=== PATIENT | male | born 1955 | race Caucasian/White ===

== ENCOUNTER 2018-04-19 18:21 | Inpatient (IN) ==
[2018-04-19 19:43] LABS: Basophils % 0.2 %; Eosinophils % 0.2 %; Hematocrit 29.1 % (37.5-50.1); Hemoglobin 10.7 g/dL (12.9-16.9); Immature Granulocytes % 0.4 % (0-4); Lymphocytes # 1.2 K/mcL (0.6-4.6); Lymphocytes % 14.1 %; Mean Corpuscular HGB Conc 36.8 g/dL (31.6-35.5); Mean Corpuscular Hemoglobin 34.1 pg (28.0-33.3); Mean Corpuscular Volume 92.7 fL (83.0-100.0); Mean Platelet Volume 9.2 fL (9.4-12.4); Monocytes # 0.4 K/mcL (0.0-1.3); Monocytes % 4.6 %; Neutrophils # 6.8 K/mcL (1.6-8.9); Platelet Count 167 K/mcL (140-400); Red Blood Count 3.14 M/mcL (4.19-5.50); Red Cell Distribution Width 13.3 % (11.5-14.5); Segmented Neutrophils % 80.5 %
[2018-04-19 21:11] LABS: Chloride 79 mEq/L (98-107); Potassium 3.6 mEq/L (3.5-5.1); Thyroid Stimulating Hormone 1.217 mcIU/mL (0.340-5.600)
[2018-04-19 21:22] LABS: Sodium 117 mEq/L (136-145)
[2018-04-19 22:04] LABS: BUN/Creatinine Ratio 11 (6-26); Blood Urea Nitrogen 15 mg/dL (8-23); Calcium 8.4 mg/dL (8.6-10.3); Carbon Dioxide 31 mEq/L (23-29); Glucose 123 mg/dL (70-105); Osmolality,Calculated 246 (280-300); eGFR For Non-African Americans 52 (> 60)
--- NOTE | 2018-04-19 22:53 | Emergency Department Note ---
Disposition Clinical Impression: Hyponatremia, Near syncope Disposition: Admitted As Inpatient Condition: Fair Time of Disposition: 23:04 General Adult HPI - General Chief complaint: ED Fall Stated complaint: SYNCOPE Time Seen by Provider: 04/19/18 20:55 Source: patient, EMS Mode of arrival: EMS Limitations: no limitations Nursing Notes Reviewed: Yes Vital Signs Reviewed: Yes - History of Present Illness HPI Narrative: Patient is a 62-year-old male with past medical history of COPD, diabetes, HTN, HLD, and WA presenting to the emergency Department by squad for evaluation of syncope and weakness. Cor to the patient and he was dismissed from his primary care physician's office in July 2017 he states that since that time he has been becoming progressively weaker requiring a wheelchair as well as having intermittent episodes of syncope every couple of weeks. The patient states that this evening he was standing at the side of his bed and he states that he blacked out and fell to his bed but is able to catch himself and therefore he denies any other injury. Denies any focal neurological deficits. Denies history of cancer or alcohol use. Denies any fevers, chills, chest pain, shortness of breath, abdominal pain, nausea, vomiting or lower extremity swelling. Pain Scale: 5 - Related Data Home Medications Medication Instructions Recorded Confirmed Albuterol Sulfate [Proair Hfa] 2 puff IH Q4H PRN 04/19/18 04/19/18 Aspirin Enteric Coated [Aspirin EC] 81 mg PO DAILY 04/19/18 04/19/18 Atenolol/Chlorthalidone [Tenoretic 0.5 tab PO BID 04/19/18 04/19/18 100 Tablet] Cetirizine HCl [All Day Allergy] 10 mg PO DAILY 04/19/18 04/19/18 Citalopram Hydrobromide 40 mg PO DAILY 04/19/18 04/19/18 [Citalopram HBr] Clorazepate Dipotassium 15 mg PO DAILY 04/19/18 04/19/18 EPINEPHrine [Epipen] 0.3 mg IM ONCE PRN 04/19/18 04/19/18 Furosemide [Lasix] 20 mg PO BID 04/19/18 04/19/18 Insulin ASPART [NovoLOG] 0 unit SQ TIDWM 04/19/18 04/19/18 Insulin Glargine,Hum.rec.anlog 30 unit SQ DAILY 04/19/18 04/19/18 [Lantus Solostar] Isosorbide DInitrate [Isosorbide 20 mg PO TID 04/19/18 04/19/18 Dinitrate] Lisinopril [Zestril] 40 mg PO DAILY 04/19/18 04/19/18 Nitroglycerin [Nitrostat] 0.4 mg SL Q5MIN PRN 04/19/18 04/19/18 Potassium Chloride [K-Tab ER] 20 meq PO DAILY 04/19/18 04/19/18 Umeclidinium Brm/Vilanterol Tr 1 puff IH DAILY 04/19/18 04/19/18 [Anoro Ellipta 62.5-25 Mcg INH] traZODone [TraZODone] 50 mg PO HS 04/19/18 04/19/18 Allergies Allergy/AdvReac Type Severity Reaction Status Date / Time Penicillins [PCN] Allergy See Verified 04/19/18 18:24 Comments All systems ED: reviewed and negative except as stated. Review of Systems: As Per HPI Constitutional: Denies: fever, chills Cardiovascular: Denies: chest pain, palpitations, dyspnea on exertion Respiratory: Denies: cough, dyspnea Gastrointestinal: Denies: abdominal pain, nausea, vomiting Genitourinary: Denies: urgency, dysuria, frequency Musculoskeletal: Denies: back pain, neck pain Integumentary: Denies: rash Neurological: Reports: other (Syncope). Denies: headache, weakness, numbness, paresthesias, confusion, abnormal gait Past Medical History - Past Medical History Attestation: Yes The following information was validated with the patient. Medical history: Reports: COPD, diabetes, hyperlipidemia, hypertension, myocardial infarction, other Psychiatric history: Reports: anxiety, depression - Social History Smoking Status: Current every day smoker Smokeless Tobacco Status: No Alcohol use: Reports: rarely Drug use: Reports: none Physical Exam CONSTITUTIONAL: Well-appearing; well-nourished; A&O X 3, in no apparent distress. Vitals within normal limits. HEAD: Normocephalic; atraumatic EYES: PERRL, no scleral icterus NOSE: The nose is normal in appearance without rhinorrhea NECK: No JVD or distended neck veins RESP: Normal chest excursion with respiration; breath sounds clear and equal bilaterally; no wheezes, rhonchi, or rales CARD: Regular rhythm, without murmurs, rub or gallop ABD: Non-distended; non-tender, soft, without rigidity, rebound or guarding,no pulsatile mass CHEST: No pain with palpation SKIN: Normal for age and race; warm and dry without diaphoresis ; no apparent lesions EXTREMITIES: Pulses are 2 plus and equal times 4 extremities, mild bilateral pitting edema. NEUROLOGICAL: Patient is alert and oriented times three. Cranial nerves III- XII are intact. Sensory and motor functions are intact. Strength is 5/5 for flexion and extension in all 4 extremities. Patellar DTRS are equal and intact. Finger to nose testing is equal and normal bilaterally. - General Limitations: no limitations General appearance: alert Course Course Narrative: Plan at this times to evaluate the patient for generalized weakness and syncopal events. Patient undergo evaluation of his electrolytes, EKG, troponin , TSH to evaluate for etiologies of the patient's syncope. At this time patient 's vital signs are stable. - Reevaluation(s) Reevaluation #1: Patient was found to be hyponatremic with a sodium of 117. Discussed this patient's findings with the hospitalist, Dr. Haley D he requested that I consult with nephrology for further management however he will accept the patient to the hospital. I discussed the patient's case with Dr. Hines, and she does not recommend hypertonic saline at this time given that the patient is currently asymptomatic. She recommended admission to the hospital in stopping the patient's chlorthalidone, thiazide and lisinopril. She recommended adding on urine labs which include a urine sodium and urinalysis osmolality. She recommended 1 g of sodium chloride twice a day to start this evening. She also recommended a regular diet with salt packets. I discussed this information with the hospitalist on-call, Dr. Zee and he agrees with plan. Time: 22:55 Vital Signs Temperature 98 F 04/19/18 18:25 Pulse Rate 65 04/19/18 18:25 Respiratory Rate 22 04/19/18 18:25 Blood Pressure 151/138 04/19/18 18:25 O2 Sat by Pulse Oximetry 93 04/19/18 18:25 Temperature 98 F 04/19/18 18:25 Pulse Rate 55 04/19/18 23:00 Respiratory Rate 16 04/19/18 23:00 Blood Pressure 153/73 04/19/18 23:00 O2 Sat by Pulse Oximetry 100 04/19/18 23:00 Oxygen Delivery Oxygen Delivery Nasal Cannula Medical Decision Making - Medical Records Medical records reviewed: Yes I reviewed the patient's medical records. - Lab Data Lab results reviewed: Yes I reviewed the patient's lab results. Result diagrams: 04/19/18 19:23 04/19/18 19:23 Lab Results 04/19/18 04/19/18 Range/Units 19:23 19:23 WBC 8.5 (4.3-11.1) K/mcL RBC 3.14 L (4.19-5.50) M/mcL Hgb 10.7 L (12.9-16.9) g/dL Hct 29.1 L (37.5-50.1) % MCV 92.7 (83.0-100.0) fL MCH 34.1 H (28.0-33.3) pg MCHC 36.8 H (31.6-35.5) g/dL RDW 13.3 (11.5-14.5) % Plt Count 167 (140-400) K/mcL MPV 9.2 L (9.4-12.4) fL Immature Gran % 0.4 (0-4) % Seg Neutrophils % 80.5 % Lymphocytes % 14.1 % Monocytes % 4.6 % Eosinophils % 0.2 % Basophils % 0.2 % Neutrophils # 6.8 (1.6-8.9) K/mcL Lymphocytes # 1.2 (0.6-4.6) K/mcL Monocytes # 0.4 (0.0-1.3) K/mcL Eosinophils # 0.0 (0.0-0.6) K/mcL Basophils # 0.0 (0.0-0.2) K/mcL Sodium 117 L* (136-145) mEq/L Potassium 3.6 (3.5-5.1) mEq/L Chloride 79 L (98-107) mEq/L Carbon Dioxide 31 H (23-29) mEq/L BUN 15 (8-23) mg/dL Creatinine 1.39 H (0.70-1.30) mg/dL Est GFR ( Amer) > 60 (> 60) Est GFR (Non-Af Amer) 52 L (> 60) BUN/Creatinine Ratio 11 (6-26) Glucose 123 H (70-105) mg/dL Calculated Osmolality 246 L (280-300) Calcium 8.4 L (8.6-10.3) mg/dL TSH 1.217 (0.340-5.600) mcIU/mL - EKG Data EKG #1 EKG attestation: Yes I reviewed and interpreted this EKG. EKG results narrative: EKG done at 18:35 shows sinus rhythm at a rate of 66 bpm. Normal axis. Intervals within normal limits no signs of ST elevation, ST depression or Q waves present. Patient does have 2 PVCs.
[2018-04-19 23:47] LABS: Bilirubin,Urine Negative (Negative); Blood,Urine Negative (Negative); Clarity,Urine Clear (Clear); Color,Urine Yellow (Yellow); Glucose,Urine (UA) Normal (Normal); Ketones,Urine Negative (Negative); Leukocyte Esterase,Urine Negative (Negative); Nitrite,Urine Negative (Negative); PH,Urine 7.5 pH Units (5.0-8.0); Protein,Urine Negative (Neg-Trace); Specific Gravity,Urine 1.007 (1.010-1.025); Urobilinogen,Urine Normal (Normal)
[2018-04-20] MEDS ORDERED: Naloxone 0.4 MG/ML INJ IVP PRN ×2 (01:03→05:54)
[2018-04-20] MEDS ORDERED: Dextrose Gel 15 GM/37.5 ML TUBE PO PRN ×2 (01:12)
[2018-04-20] MEDS ORDERED: D5% in Water 1,000 ML IVC PRN (01:12)
[2018-04-20] MEDS ORDERED: *HR* Dextrose 50 % in Water (Syg) 50 ML SYRINGE IVP PRN (01:12)
[2018-04-20] MEDS ORDERED: Nitroglycerin 0.4 MG TAB.SUBL SL PRN (01:19)
[2018-04-20] MEDS ORDERED: *HR* EPINEPHrine 0.3 MG/0.3 ML (PEN) IM PRN (01:19)
--- NOTE | 2018-04-20 01:19 | Internal Med History&Physical ---
<Melody Gutierrez M - Last Filed: 04/20/18 03:20> Date of Encounter: 04/20/18 Time of Encounter: 01:17 Internal Medicine - H&P: HPI Chief complaint: syncope Admitted From: Home Plans for Post Hospital Care: Home History of present illness: Mr. Toure is a 62 year old male hx COPD and HTN presented to ED by EMS for syncope. In Er BP 151/138 and RR 22 with 93% on RA - started on 2L NC. He has found to have sodium of 117 and given salt tablet which he vomited - only one episode. He reports near syncope with sitting and bending over- he became dizzy and began to fall but caught himself. He did not hit his head, No LOC, no other injuries. He has daily syncope or near syncope for about three months - triggered by neck extension. He "blacks out" for unknown spaces of time but denies urinary incontinence or tongue bitting - history of seizure seven years ago due to anxiety. Worse episode was one month ago when he hit his head and bruised his face. Chronic bilateral headache crushing pain with nausea and photophobia unchanged by Tylenol, NSAIDs or caffeine. One month of decreased appetite and increase confusion and memory loss. Fatigue and generalized weakness since September- started using wheel chair instead of cane in past month. Unintentional weight loss of 50 lbs in one year and 4 lbs in last month. He hasn't taken Lasix but has been compliant with lisinopril and taking half tablet of combo pill. PMhx includes chronic pain, COPD at baseline cough and shortness of breath, hx of NC - patient states last LHC 7 years ago and echo 4 months ago but 8-29-147 EF 60-65 % no abnormality. Denies any family history of NC or kidney disease. greater than 70 pkyr currently few cigarettes a day. He drinks one beer per week and denies illicit substances. Past Med Surg Social Fam HX - Past Medical History Medical history: COPD, CVA, diabetes, hyperlipidemia, hypertension, myocardial infarction, other Additional medical history: sleep apnea Psychiatric history: anxiety, depression - Social History Smoking Status: Current every day smoker Packs per day: 0.5 Smokeless Tobacco Status: No Alcohol use: rarely Drug use: none Internal Medicine - H&P: Meds Albuterol Sulfate [Proair Hfa] 2 puff IH Q4H PRN 04/19/18 [History] Aspirin Enteric Coated [Aspirin EC] 81 mg PO DAILY 04/19/18 [History] Atenolol/Chlorthalidone [Tenoretic 100 Tablet] 0.5 tab PO HS 04/19/18 [History] Cetirizine HCl [All Day Allergy] 10 mg PO DAILY 04/19/18 [History] Citalopram Hydrobromide [Citalopram HBr] 20 mg PO DAILY 04/19/18 [History] Clorazepate Dipotassium 15 mg PO DAILY 04/19/18 [History] EPINEPHrine [Epipen] 0.3 mg IM ONCE PRN 04/19/18 [History] Insulin ASPART [NovoLOG] 0 unit SQ TIDWM 04/19/18 [History] Insulin Glargine,Hum.rec.anlog [Lantus Solostar] 10 unit SQ HS 04/19/18 [History ] Isosorbide DInitrate [Isosorbide Dinitrate] 20 mg PO HS 04/19/18 [History] Lisinopril [Zestril] 40 mg PO DAILY 04/19/18 [History] Nitroglycerin [Nitrostat] 0.4 mg SL Q5MIN PRN 04/19/18 [History] traZODone [TraZODone] 50 mg PO HS 04/19/18 [History] 3 Allergy/AdvReac Type Severity Reaction Status Date / Time Penicillins [PCN] Allergy See Verified 04/19/18 18:24 Comments All Systems PM: A 10-system review of systems was performed and is negative for pertinent findings except as documented above in the HPI. - Constitutional Constitutional: fatigue, weight loss - EENT Eyes: blurry vision, change in vision, loss of vision Nose, mouth and throat: no facial pain - Cardiovascular Cardiovascular ROS IM: dyspnea, syncope, no chest pain, no palpitations - Respiratory Respiratory: no cough, no wheezing, no excessive phlegm production - Gastrointestinal Gastrointestinal: no constipation, no cramping, no diarrhea, no vomiting - Genitourinary Genitourinary ROS male: no dysuria, no urinary frequency, no urinary incontinence - Musculoskeletal Musculoskeletal ROS IM: arthralgias, back pain, myalgias, neck pain - Neurological Neurological ROS: confusion, frequent falls, headache(s), vertigo, weakness, no convulsions, no focal weakness - Constitutional Vitals: Temp Pulse Resp BP Pulse Ox 97.8 F 65 18 115/49 97 04/19/18 23:53 04/19/18 23:53 04/19/18 23:53 04/19/18 23:53 04/19/18 23:53 Exam: morbidly obese Internal Med - H&P Results - Labs CBC & Chem 7: 04/20/18 01:44 04/20/18 01:44 Labs: Urine 04/19/18 Range/Units 23:20 Urine Color Yellow (Yellow) Urine Clarity Clear (Clear) Urine pH 7.5 (5.0-8.0) pH Units Ur Specific [place] 1.007 L (1.010-1.025) Urine Protein Negative (Neg-Trace) mg/dL Urine Glucose (UA) Normal (Normal) mg/dL - Assessment and plan (1) Hyponatremia Current Visit: Yes Status: Acute Assessment and plan: Na 117 with baseline chronic hyponatremia 130s - urine Osm 116 - monitor with serial BMPs - salt tablets BID - repeat dose given in ER since lost to vomit - diabetic diet with salt added - consult nephrology - 24hr urine sodium (2) Near syncope Current Visit: Yes Status: Acute Assessment and plan: chronic problem possibly due in part to hyponatremia - consider cardiac cause with significant risk factors - EKG wnl - consider Head CT due to history of syncope trigger by neck extension - orthostatic vitals - continue tele and pulse ox (3) Diabetes Current Visit: Yes Status: Acute Assessment and plan: Continue home basal 10 units with sliding scale Qualifiers: Diabetes mellitus type: type 2 Diabetes mellitus termite treater helper insulin use: with termite treater helper use Diabetes mellitus complication detail: with polyneuropathy Qualified Code(s): E11.42 - Type 2 diabetes mellitus with diabetic polyneuropathy; Z79.4 - watermaster (current) use of insulin (4) Hypertension Current Visit: Yes Status: Acute Assessment and plan: hold atenolol - chlorthalidone combo, lisinopril - hold trazadone, citalopram - monitor BP - considered adding beta lindsay or hydralazine as not salt wasting Qualifiers: Qualified Code(s): I10 - Essential (primary) hypertension (5) Insomnia Current Visit: Yes Status: Acute Assessment and plan: history of chronic benzo use - continue clorazpate Qualifiers: Insomnia type: unspecified Qualified Code(s): G47.00 - Insomnia, unspecified (6) COPD (chronic obstructive pulmonary disease) Current Visit: Yes Status: Acute Assessment and plan: patient refused to use controlled inhaler - continue albuterol inhaler - start duenebs PRN Qualifiers: Emphysema type: unspecified Qualified Code(s): J43.9 - Emphysema, unspecified (7) DVT prophylaxis Current Visit: Yes Status: Acute Assessment and plan: heparin SQ - Time Spent With Patient Total time spent is greater than 50% in coordination of care (as documented) at patient's floor/unit and/or counseling patient: <Cathy Pollard A - Last Filed: 04/20/18 06:50> Date of Encounter: 04/20/18 Internal Medicine - H&P: HPI History of present illness: Mr. Toure is a 62 year old male All Systems PM: A 10-system review of systems was performed and is negative for pertinent findings except as documented above in the HPI. - Constitutional Vitals: Temp Pulse Resp BP Pulse Ox 98.7 F 56 20 128/59 100 04/20/18 03:14 04/20/18 03:14 04/20/18 03:14 04/20/18 03:14 04/20/18 03:14 Internal Med - H&P Results - Labs CBC & Chem 7: 04/20/18 01:44 04/20/18 05:35 - Time Spent With Patient Total time spent is greater than 50% in coordination of care (as documented) at patient's floor/unit and/or counseling patient: - Attending Attestation Patient seen and examined. Chart reviewed. Case discussed with resident. Agree with assessment and plan. Strong suspicion for severe symptomatic hyponatremia Nephrology is aware the patient and at this time is recommending to hold fluids; continue with one gram sodium tablets twice a day and regular diet. Nephrology was the patient in the morning. More than 30 minutes spent discussing and seeing patient
[2018-04-20] MEDS ORDERED: Ipratropium/Albuterol Neb 3 ML IH PRN (01:31)
[2018-04-20 02:13] LABS: Basophils % 0.3 %; Eosinophils % 0.6 %; Hematocrit 30.1 % (37.5-50.1); Immature Granulocytes % 0.5 % (0-4); Lymphocytes # 1.2 K/mcL (0.6-4.6); Lymphocytes % 18.5 %; Mean Corpuscular HGB Conc 36.5 g/dL (31.6-35.5); Mean Corpuscular Hemoglobin 34.2 pg (28.0-33.3); Mean Corpuscular Volume 93.5 fL (83.0-100.0); Mean Platelet Volume 9.4 fL (9.4-12.4); Monocytes # 0.3 K/mcL (0.0-1.3); Monocytes % 4.5 %; Neutrophils # 4.9 K/mcL (1.6-8.9); Platelet Count 169 K/mcL (140-400); Red Blood Count 3.22 M/mcL (4.19-5.50); Red Cell Distribution Width 13.3 % (11.5-14.5); Segmented Neutrophils % 75.6 %
[2018-04-20 02:32] LABS: BUN/Creatinine Ratio 11 (6-26); Blood Urea Nitrogen 14 mg/dL (8-23); Calcium 8.6 mg/dL (8.6-10.3); Carbon Dioxide 35 mEq/L (23-29); Chloride 80 mEq/L (98-107); Glucose 128 mg/dL (70-105); Osmolality,Calculated 252 (280-300); Potassium 3.3 mEq/L (3.5-5.1); Sodium 120 mEq/L (136-145); eGFR For Non-African Americans 56 (> 60)
[2018-04-20] MEDS: Insulin DETEMIR 100 UNIT/ML X5UNITS SQ SCH ×2 (03:04→21:30)
[2018-04-20] MEDS: *HR* Heparin 5,000 UNIT/ML VIAL SQ SCH ×3 (05:26→21:30)
[2018-04-20 06:31] LABS: BUN/Creatinine Ratio 10 (6-26); Blood Urea Nitrogen 12 mg/dL (8-23); Calcium 8.7 mg/dL (8.6-10.3); Carbon Dioxide 35 mEq/L (23-29); Chloride 82 mEq/L (98-107); Glucose 122 mg/dL (70-105); Osmolality,Calculated 255 (280-300); Potassium 3.5 mEq/L (3.5-5.1); Sodium 122 mEq/L (136-145); eGFR For Non-African Americans > 60 (> 60)
[2018-04-20] MEDS: Aspirin Enteric Coated 81 MG Tablet PO SCH (08:28)
[2018-04-20] MEDS: Insulin LISPRO 300 UNITS/3 ML VIAL SQ SCH ×3 (08:28→17:25)
--- NOTE | 2018-04-20 09:35 | Internal Med Progress Note ---
<Perez Burnett - Last Filed: 04/20/18 09:35> Hospitalist Progress Note - Encounter Date of Encounter: 04/20/18 - Exam Vitals: Temp Pulse Resp BP Pulse Ox 98.5 F 63 18 121/45 100 04/20/18 08:00 04/20/18 08:00 04/20/18 08:00 04/20/18 08:00 04/20/18 08:00 - Time Spent with Patient Total time spent is greater than 50% in coordination of care (as documented) at patient's floor/unit and/or counseling patient: Internal Medicine: Result - Labs CBC & Chem 7: 04/20/18 01:44 04/20/18 05:35 Consult Discharge Plan - Plan Referrals: Sandra Ledesma, [facility] TECHNICIAN [Advanced Practice Nurse] - 04/26/18 3:00 pm <Barrie Ragland - Last Filed: 04/20/18 14:36> Hospitalist Progress Note - Encounter Date of Encounter: 04/20/18 Time of Encounter: 14:35 - Exam Vitals: Temp Pulse Resp BP Pulse Ox 98.3 F 62 18 119/65 97 04/20/18 11:18 04/20/18 11:18 04/20/18 11:18 04/20/18 13:37 04/20/18 11:18 Exam: . - Summary of Assessment and Plan Summary of Assessment and Plan: Patient hospitalized with hyponatremia. Most likely hypovolemic hyponatremia. Also reports continued dizziness and lightheadedness. We will check orthostatics. Follow nephrology recommendations. Does have low urine osmolality. We will start patient on normal saline. Continue to monitor sodium levels closely. - Time Spent with Patient Total time spent is greater than 50% in coordination of care (as documented) at patient's floor/unit and/or counseling patient: Internal Medicine: Result - Labs CBC & Chem 7: 04/20/18 01:44 04/20/18 13:13 Labs: BMP 04/20/18 04/20/18 09:30 13:13 Sodium 123 L 122 L Potassium 3.5 Chloride 81 L Carbon Dioxide 35 H BUN 12 Creatinine 1.24 Glucose 167 H Calcium 8.9
[2018-04-20 10:25] LABS: BUN/Creatinine Ratio 10 (6-26); Blood Urea Nitrogen 12 mg/dL (8-23); Calcium 8.9 mg/dL (8.6-10.3); Carbon Dioxide 35 mEq/L (23-29); Chloride 81 mEq/L (98-107); Glucose 167 mg/dL (70-105); Osmolality,Calculated 260 (280-300); Potassium 3.5 mEq/L (3.5-5.1); Sodium 123 mEq/L (136-145); eGFR For Non-African Americans 59 (> 60)
[2018-04-20] MEDS: 0.9 % Sodium Chloride 1,000 ML IVC SCH (13:46)
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
[2018-04-20] MEDS: Temazepam 15 MG CAPSULE PO PRN (21:30)
[2018-04-21] MEDS: 0.9 % Sodium Chloride 1,000 ML IVC SCH ×3 (00:17→20:27)
[2018-04-21 04:11] LABS: Basophils % 0.2 %; Eosinophils % 0.5 %; Hematocrit 28.8 % (37.5-50.1); Hemoglobin 10.1 g/dL (12.9-16.9); Immature Granulocytes % 0.4 % (0-4); Lymphocytes # 1.6 K/mcL (0.6-4.6); Lymphocytes % 19.5 %; Mean Corpuscular HGB Conc 35.1 g/dL (31.6-35.5); Mean Corpuscular Hemoglobin 33.1 pg (28.0-33.3); Mean Corpuscular Volume 94.4 fL (83.0-100.0); Mean Platelet Volume 9.4 fL (9.4-12.4); Monocytes # 0.4 K/mcL (0.0-1.3); Monocytes % 4.5 %; Platelet Count 197 K/mcL (140-400); Red Blood Count 3.05 M/mcL (4.19-5.50); Red Cell Distribution Width 13.7 % (11.5-14.5); Segmented Neutrophils % 74.9 %
[2018-04-21 04:30] LABS: BUN/Creatinine Ratio 9 (6-26); Blood Urea Nitrogen 9 mg/dL (8-23); Calcium 8.8 mg/dL (8.6-10.3); Carbon Dioxide 32 mEq/L (23-29); Chloride 88 mEq/L (98-107); Glucose 102 mg/dL (70-105); Osmolality,Calculated 261 (280-300); Potassium 3.8 mEq/L (3.5-5.1); Sodium 126 mEq/L (136-145); eGFR For Non-African Americans > 60 (> 60)
[2018-04-21] MEDS: *HR* Heparin 5,000 UNIT/ML VIAL SQ SCH ×3 (06:49→20:27)
[2018-04-21] MEDS: Aspirin Enteric Coated 81 MG Tablet PO SCH (07:34)
[2018-04-21] MEDS: Insulin LISPRO 300 UNITS/3 ML VIAL SQ SCH ×3 (07:36→17:02)
--- NOTE | 2018-04-21 08:53 | Internal Med Progress Note ---
Hospitalist Progress Note - Encounter Date of Encounter: 04/21/18 Time of Encounter: 08:50 - Subjective Interval History: Patient seen and evaluated at bedside. Denies lightheadedness, near syncope, dizziness, blurry vision. But he reports that for the past 2 months he has been having's near syncope spells which he describes as the room is spinning around after which he has passed out. 62-year-old male with a past medical history significant for COPD on 2 L of home oxygen, hypertension, depression, coronary artery disease with a previous NH, CVA, and diabetes. Patient admitted to the hospital following a near syncopal episode. Found to be hyponatremic. - Exam Vitals: Temp Pulse Resp BP Pulse Ox 98.5 F 70 18 125/60 99 04/21/18 06:48 04/21/18 06:48 04/21/18 06:48 04/21/18 06:48 04/21/18 06:48 Exam: General: Alert and oriented 3. Not in acute distress. Cardiovascular: Normal S1 & S2, no rubs, murmurs or gallops. JVD unable to assess due to short neck. Lungs: Clear to auscultation bilaterally, no wheezes or crackles. Abdomen: Obese, Soft, non-tender, no rigidity. NABS 4 quadrants. Extremities: No deformity, no edema or tenderness, strength is 5 out of 5 upper and lower extremities. Neurological: CN II-XII intact. Rest of the physical exam is non contributory - Assessment and Plan (1) Hyponatremia Current Visit: Yes Status: Acute Assessment and Plan: Unclear etiology. Plan: - Continue NS@100mls/hr - Cortisol level in the morning - Water restricting to 1.5 litters a day - Will continue to follow nephrology recommendations (2) Chronic hypoxemic respiratory failure Current Visit: Yes Status: Acute Assessment and Plan: On 2 L home oxygen. Plan: - Titrate for O2Sat >92% - Continue oxygen at 2 L by nasal cannula (3) COPD (chronic obstructive pulmonary disease) Current Visit: Yes Status: Acute Assessment and Plan: No signs of acute exacerbation. Chest clear to auscultation. Plan - On nebs when necessary (4) Diabetes Current Visit: Yes Status: Acute Assessment and Plan: Blood sugar well controlled Plan: - Continue levemir and Lispro at current dose. - Diabetic diet (5) Hypertension Current Visit: Yes Status: Acute Assessment and Plan: Blood pressure well controlled> Plan: - Continue lisinopril and isosorbide - Hold chlorthalidone. - We will restart atenolol at low dose (6) Near syncope Current Visit: Yes Status: Acute Assessment and Plan: As per patient for the past 2 months he has been having near syncope episode. Which he described as the room spinning around then following of blackouts episode. Possible BPV? Plan: - Head CT done with no intracranial abnormality. - Patient informed that he would benefit from an outpatient neurology evaluation. (7) Depression Current Visit: Yes Status: Acute Assessment and Plan: Patient on SSRI. Plan: - We will hold medication for now, as this could be a contributing factor for his hyponatremia. (8) Anxiety Current Visit: Yes Status: Acute Assessment and Plan: Patient on Clorazepate ane trenazepam (9) DVT prophylaxis Current Visit: Yes Status: Acute Assessment and Plan: Continue chemical DVT prophylaxis with heparin 5000 units subcutaneous BID - Time Spent with Patient Total time spent is greater than 50% in coordination of care (as documented) at patient's floor/unit and/or counseling patient: Greater than 35 minutes Plan of Care Discussed with: patient Internal Medicine: Result - Labs CBC & Chem 7: 04/21/18 03:35 04/21/18 03:35 Labs: Short CBC 04/21/18 Range/Units 03:35 WBC 8.0 (4.3-11.1) K/mcL Hgb 10.1 L (12.9-16.9) g/dL Hct 28.8 L (37.5-50.1) % Plt Count 197 (140-400) K/mcL Neutrophils # 6.0 (1.6-8.9) K/mcL BMP 04/20/18 04/20/18 04/20/18 09:30 13:13 18:40 Sodium 123 L 122 L 125 L Potassium 3.5 Chloride 81 L Carbon Dioxide 35 H BUN 12 Creatinine 1.24 Glucose 167 H Calcium 8.9 04/20/18 04/21/18 23:10 03:35 Sodium 125 L 126 L Potassium 3.8 Chloride 88 L Carbon Dioxide 32 H BUN 9 Creatinine 0.95 Glucose 102 Calcium 8.8 - Impressions Impressions Head CT 09/05/18 16:03 IMPRESSION: No acute intracranial abnormality. D/ / Shin Rogel MD / Shin Rogel MD Interpreting Provider: Shin Rogel MD Consult Discharge Plan - Plan Referrals: Sandra Ledesma PUBLIC SPACE ATTENDANT [Advanced Practice Nurse] - 04/26/18 3:00 pm (3) COPD (chronic obstructive pulmonary disease) Qualifiers: Emphysema type: unspecified Qualified Code(s): J43.9 - Emphysema, unspecified (4) Diabetes Qualifiers: Diabetes mellitus type: type 2 Diabetes mellitus retirement insulin use: with retirement use Diabetes mellitus complication detail: with polyneuropathy Qualified Code(s): E11.42 - Type 2 diabetes mellitus with diabetic polyneuropathy; Z79.4 - terminal operations supervisor (current) use of insulin (5) Hypertension Qualifiers: Qualified Code(s): I10 - Essential (primary) hypertension (7) Depression Qualifiers: Depression Type: unspecified Qualified Code(s): F32.9 - Major depressive disorder, single episode, unspecified
--- NOTE | 2018-04-21 11:37 | Nephrology Progress Note ---
Date of Encounter: 04/21/18 Time of Encounter: 11:34 - Assessment and Plan (1) Hyponatremia Current Visit: Yes Status: Acute Initial NA was 117,is now 126. Continue IVF. Continue diabetic diet with salt packets. (2) COPD (chronic obstructive pulmonary disease) Current Visit: Yes Status: Acute Per primary. Qualifiers: Emphysema type: unspecified Qualified Code(s): J43.9 - Emphysema, unspecified (3) Near syncope Current Visit: Yes Status: Acute Appears to be resolving. Per primary. Subjective Principal diagnosis: s/p fall, syncopal episode Interval history: Pt seen and examined, doing well. Denies any dizziness when standing this am. States he is feeling better. Objective - Vital Signs Vital signs: Vital Signs Temp Pulse Resp BP BP BP BP 04/21/18 11:18 98.8 F 61 18 123/78 04/21/18 07:35 98.5 F 70 18 125/60 04/21/18 06:48 98.5 F 70 18 125/60 04/21/18 04:14 98.5 F 67 18 110/59 04/20/18 23:57 97.6 F 66 18 113/53 04/20/18 19:53 98.1 F 65 17 130/62 04/20/18 15:40 98.2 F 61 18 121/99 04/20/18 13:37 119/65 96/81 85/47 04/20/18 13:35 119/65 04/20/18 13:34 119/65 04/20/18 13:29 119/65 Pulse Ox 04/21/18 11:18 100 04/21/18 07:35 99 04/21/18 06:48 99 04/21/18 04:14 98 04/20/18 23:57 99 04/20/18 19:53 95 04/20/18 15:40 100 04/20/18 13:37 04/20/18 13:35 04/20/18 13:34 04/20/18 13:29 Intake and Output 04/20/18 04/21/18 04/21/18 23:59 07:59 15:59 Intake Total 1120 / 1120 0 / 0 1000 / 1000 Output Total 400 / 400 350 / 350 900 / 900 Balance 720 / 720 -350 / -350 100 / 100 Intake: IV Fluids 1000 / 1000 1000 / 1000 0.9 % Sodium Chloride 1,000 ML 1000 / 1000 1000 / 1000 @ 100 mls/hr IVC .Q10H INO Rx#: [id number] Oral 120 / 120 0 / 0 Output: Urine 400 / 400 350 / 350 900 / 900 Other: Meal Dinner Breakfast Percent of Meal Consumed 80% 0% Weight 139.5 kg Blood Glucose* 145 113 99 Patient Weight 04/21/18 23:59 Weight 139.5 kg - General Appearance General appearance: Present: well-developed, well-nourished EENT: Present: ATNC, hearing intact, vision intact Neck: Present: supple Respiratory: Present: clear Cardiology: Present: no edema, normal S1, normal S2 Gastrointestinal: Present: normoactive bowel sounds, no tenderness, no guarding Integumentary: Present: no rash, warm and dry Psychiatric: Present: mood/affect appropriate, cooperative - Lab 04/21/18 03:35 04/21/18 03:35 Most recent lab results Calcium 8.8 mg/dL (8.6-10.3) 04/21/18 03:35 Urine Sodium 41.1 mEq/L 04/20/18 15:40 Consult Discharge Plan - Plan Referrals: Sandra Ledesma, ENTRY LEVEL ACCOUNT MANAGER [Advanced Practice Nurse] - 04/26/18 3:00 pm
[2018-04-21 15:03] LABS: Total Volume 24 Hour,Urine 3.21 Liters (0.80-1.80)
[2018-04-21 15:20] LABS: Sodium, Urine 49.2 mEq/L
[2018-04-21] MEDS: Insulin DETEMIR 100 UNIT/ML X5UNITS SQ SCH (20:27)
[2018-04-21] MEDS: Temazepam 15 MG CAPSULE PO PRN (21:39)
[2018-04-22 05:21] LABS: Basophils % 0.2 %; Eosinophils % 0.7 %; Hematocrit 26.8 % (37.5-50.1); Hemoglobin 9.3 g/dL (12.9-16.9); Immature Granulocytes % 0.3 % (0-4); Lymphocytes # 1.1 K/mcL (0.6-4.6); Lymphocytes % 18.4 %; Mean Corpuscular HGB Conc 34.7 g/dL (31.6-35.5); Mean Corpuscular Hemoglobin 33.9 pg (28.0-33.3); Mean Corpuscular Volume 97.8 fL (83.0-100.0); Mean Platelet Volume 9.4 fL (9.4-12.4); Monocytes # 0.3 K/mcL (0.0-1.3); Monocytes % 5.1 %; Neutrophils # 4.4 K/mcL (1.6-8.9); Platelet Count 183 K/mcL (140-400); Red Blood Count 2.74 M/mcL (4.19-5.50); Red Cell Distribution Width 13.8 % (11.5-14.5); Segmented Neutrophils % 75.3 %
[2018-04-22 05:48] LABS: BUN/Creatinine Ratio 7 (6-26); Blood Urea Nitrogen 6 mg/dL (8-23); Calcium 8.1 mg/dL (8.6-10.3); Carbon Dioxide 28 mEq/L (23-29); Chloride 95 mEq/L (98-107); Glucose 97 mg/dL (70-105); Magnesium 1.4 mg/dL (1.6-2.6); Osmolality,Calculated 268 (280-300); Potassium 3.5 mEq/L (3.5-5.1); Sodium 130 mEq/L (136-145); eGFR For Non-African Americans > 60 (> 60)
[2018-04-22] MEDS: *HR* Heparin 5,000 UNIT/ML VIAL SQ SCH (06:25)
[2018-04-22] MEDS: 0.9 % Sodium Chloride 1,000 ML IVC SCH (06:26)
[2018-04-22 07:16] VITALS: BP 104/57
[2018-04-22] MEDS: Aspirin Enteric Coated 81 MG Tablet PO SCH (07:30)
[2018-04-22] MEDS: Insulin LISPRO 300 UNITS/3 ML VIAL SQ SCH (07:31)
[2018-04-22] MEDS ORDERED: Magnesium Oxide 400 MG TABLET PO ONE (09:02)
--- NOTE | 2018-04-22 09:22 | Discharge Summary ---
- NOTES TO OUTPATIENT PROVIDER Notes to Outpatient Provider: BMP within a week. Discuss with your primary care about the possible neurology evaluation as an outpatient due to the vertigo. Date of Encounter: 04/22/18 Time of Encounter: 09:19 - Discharge Diagnosis (1) Hyponatremia Priority: Primary Status: Resolved (2) Chronic hypoxemic respiratory failure Priority: Secondary Status: Chronic (3) COPD (chronic obstructive pulmonary disease) Priority: Secondary Status: Chronic Qualifiers: Emphysema type: unspecified Qualified Code(s): J43.9 - Emphysema, unspecified (4) Diabetes Priority: Secondary Status: Chronic Qualifiers: Diabetes mellitus type: type 2 Diabetes mellitus senior care insulin use: with senior care use Diabetes mellitus complication detail: with polyneuropathy Qualified Code(s): E11.42 - Type 2 diabetes mellitus with diabetic polyneuropathy; Z79.4 - skilled nursing (current) use of insulin (5) Hypertension Priority: Secondary Status: Chronic Qualifiers: Qualified Code(s): I10 - Essential (primary) hypertension (6) Near syncope Priority: Secondary Status: Suspected (7) Depression Priority: Secondary Status: Chronic Qualifiers: Depression Type: unspecified Qualified Code(s): F32.9 - Major depressive disorder, single episode, unspecified (8) Anxiety Priority: Secondary Status: Chronic (9) DVT prophylaxis Priority: Secondary Status: Acute (10) Anemia Priority: Secondary Status: Chronic Qualifiers: Anemia type: unspecified type Qualified Code(s): D64.9 - Anemia, unspecified Hospital course: Mr. Toure is a 62 year old male past medical history of COPD on 2 L of home oxygen, hypertension. And diabetes. Patient presented to the emergency room following a near syncopal episode. Patient found to be hypoglycemic with a sodium of 117. A CT of the head done, did not reveal any acute intracranial abnormality. The hyponatremia was treated with salt tablet, water restriction and normal saline. Sodium level at discharge 130, patient with no neurological abnormality. Denies dizziness, lightheadedness. Or near-syncope episode. Patient was evaluated by physical therapy, and recommended to go to subacute rehabilitation, but patient refused going to a subacute rehabilitation facility. Patient is hemodynamically is stable, to be discharged home. Recommended to follow-up with his primary care doctor within a week. Discharge discussed with: patient, family, nurse - Time Spent with Patient Total time spent providing and/or coordinating discharge services: Greater than 30 minutes - Discharge Medications Home Medications: Albuterol Sulfate [Proair Hfa] 2 puff IH Q4H PRN 04/19/18 [History] Aspirin Enteric Coated [Aspirin EC] 81 mg PO DAILY 04/19/18 [History] Atenolol/Chlorthalidone [Tenoretic 100 Tablet] 0.5 tab PO HS 04/19/18 [History] Cetirizine HCl [All Day Allergy] 10 mg PO DAILY 04/19/18 [History] Citalopram Hydrobromide [Citalopram HBr] 20 mg PO DAILY 04/19/18 [History] Clorazepate Dipotassium 15 mg PO DAILY 04/19/18 [History] EPINEPHrine [Epipen] 0.3 mg IM ONCE PRN 04/19/18 [History] Insulin ASPART [NovoLOG] 0 unit SQ TIDWM 04/19/18 [History] Insulin Glargine,Hum.rec.anlog [Lantus Solostar] 10 unit SQ HS 04/19/18 [History ] Isosorbide DInitrate [Isosorbide Dinitrate] 20 mg PO HS 04/19/18 [History] Lisinopril [Zestril] 40 mg PO DAILY 04/19/18 [History] Nitroglycerin [Nitrostat] 0.4 mg SL Q5MIN PRN 04/19/18 [History] traZODone [TraZODone] 50 mg PO HS 04/19/18 [History] Allergies/Adverse Reactions: 3 Allergy/AdvReac Type Severity Reaction Status Date / Time Penicillins [PCN] Allergy See Verified 04/19/18 18:24 Comments Date of admission: 04/20/18 06:19 Primary care physician: Morgan Kelley MD Consults: 04/20/18 06:46 Consult to Nephrology [CONS] Routine Consulting Provider: Kidney Terrie/SHAYY/KRISTINE/ALEXANDR Reason for Consult: Severe likely symptomatic Hyponatremia Call Completed: Yes - Constitutional Vitals: Temp Pulse Resp BP Pulse Ox 98.2 F 71 18 104/57 100 04/22/18 07:30 04/22/18 07:30 04/22/18 07:30 04/22/18 07:30 04/22/18 07:30 Exam: General: Alert and oriented 3. Not in acute distress. Cardiovascular: Normal S1 & S2, no rubs, murmurs or gallops. JVD unable to assess due to short neck. Lungs: Mild scattered expiratory wheezing bilaterally, no crackles. Abdomen: Obese, Soft, non-tender, no rigidity. NABS 4 quadrants. Extremities: No deformity, no edema or tenderness, strength is 5 out of 5 upper and lower extremities. Neurological: CN II-XII intact. Rest of the physical exam is non contributory - Patient Status Disposition: Home, Self-Care Condition: Good Functional capacity at discharge: independent ambulation Overall status at discharge: patient is progressing back to baseline - Discharge Instructions Follow Up With: Sandra Ledesma CNP [Advanced Practice Nurse] - 04/26/18 3:00 pm - Diet and Activity Activity: as per physical therapy Diet: diabetic diet
--- NOTE | 2018-04-23 12:31 | Electrocardiograph Report ---
[address] [address] Test Date: 2018-04-19 Pat Name: Juan José Toure Department: [id number] Room: 2N01 Gender: M News Gathering Technician: : [id number] Requested By: Luis Carlos De La Cruz Order Number: [id number] Reading MD: Ayah Verdugo Measurements Intervals [place] Rate: 66 P: 37 IA: 164 QRS: -12 QRSD: 104 T: 132 QT: 455 QTc: 477 Interpretive Statements Sinus rhythm Multiple ventricular premature complexes Low voltage, extremity leads Nonspecific T abnrm, anterolateral leads Borderline prolonged QT interval Electronically Signed On 04-23-2018 12:29:33 EDT by Ayah Verdugo
--- NOTE | 2018-05-02 17:45 | Emergency Department Note ---
Disposition Clinical Impression: Hyponatremia, Near syncope Disposition: Admitted As Inpatient Condition: Good General Adult HPI - General Chief complaint: ED Fall Stated complaint: SYNCOPE Time Seen by Provider: 04/19/18 20:55 Source: patient, EMS Mode of arrival: EMS Limitations: no limitations - History of Present Illness Pain Scale: 5 - Related Data Home Medications Medication Instructions Recorded Confirmed Albuterol Sulfate [Proair Hfa] 2 puff IH Q4H PRN 04/19/18 04/19/18 Aspirin Enteric Coated [Aspirin EC] 81 mg PO DAILY 04/19/18 04/20/18 Atenolol/Chlorthalidone [Tenoretic 0.5 tab PO HS 04/19/18 04/20/18 100 Tablet] Cetirizine HCl [All Day Allergy] 10 mg PO DAILY 04/19/18 04/19/18 Citalopram Hydrobromide 20 mg PO DAILY 04/19/18 04/20/18 [Citalopram HBr] Clorazepate Dipotassium 15 mg PO DAILY 04/19/18 04/19/18 EPINEPHrine [Epipen] 0.3 mg IM ONCE PRN 04/19/18 04/19/18 Insulin ASPART [NovoLOG] 0 unit SQ TIDWM 04/19/18 04/20/18 Insulin Glargine,Hum.rec.anlog 10 unit SQ 04/19/18 04/20/18 [Lantus Solostar] Isosorbide DInitrate [Isosorbide 20 mg PO 04/19/18 04/20/18 Dinitrate] Lisinopril [Zestril] 40 mg PO DAILY 04/19/18 04/20/18 Nitroglycerin [Nitrostat] 0.4 mg SL Q5MIN PRN 04/19/18 04/19/18 traZODone [TraZODone] 50 mg PO HS 04/19/18 04/19/18 Allergies Allergy/AdvReac Type Severity Reaction Status Date / Time Penicillins [PCN] Allergy See Verified 04/19/18 18:24 Comments Constitutional: Denies: fever, chills Cardiovascular: Denies: chest pain, palpitations, dyspnea on exertion Respiratory: Denies: cough, dyspnea Gastrointestinal: Denies: abdominal pain, nausea, vomiting Genitourinary: Denies: urgency, dysuria, frequency Musculoskeletal: Denies: back pain, neck pain Integumentary: Denies: rash Neurological: Reports: other (Syncope). Denies: headache, weakness, numbness, paresthesias, confusion, abnormal gait Past Medical History - Past Medical History Medical history: Reports: COPD, CVA, diabetes, hyperlipidemia, hypertension, myocardial infarction, other Psychiatric history: Reports: anxiety, depression - Social History Smoking Status: Current every day smoker Smokeless Tobacco Status: No Alcohol use: Reports: rarely Drug use: Reports: none Physical Exam - General Limitations: no limitations General appearance: alert Course Vital Signs Temperature 98 F 04/19/18 18:25 Pulse Rate 65 04/19/18 18:25 Respiratory Rate 22 04/19/18 18:25 Blood Pressure 151/138 04/19/18 18:25 O2 Sat by Pulse Oximetry 93 04/19/18 18:25 Temperature 98.2 F 04/22/18 07:30 Pulse Rate 71 04/22/18 07:30 Respiratory Rate 14 04/22/18 09:27 Blood Pressure 104/57 04/22/18 07:30 O2 Sat by Pulse Oximetry 98 04/22/18 09:27 Oxygen Delivery Oxygen Delivery Nasal Cannula Medical Decision Making - Lab Data Result diagrams: 04/22/18 04:26 04/22/18 04:26 Lab Results 04/19/18 04/19/18 04/19/18 Range/Units 19:23 19:23 23:20 WBC 8.5 (4.3-11.1) K/mcL RBC 3.14 L (4.19-5.50) M/mcL Hgb 10.7 L (12.9-16.9) g/dL Hct 29.1 L (37.5-50.1) % MCV 92.7 (83.0-100.0) fL MCH 34.1 H (28.0-33.3) pg MCHC 36.8 H (31.6-35.5) g/dL RDW 13.3 (11.5-14.5) % Plt Count 167 (140-400) K/mcL MPV 9.2 L (9.4-12.4) fL Immature Gran % 0.4 (0-4) % Seg Neutrophils % 80.5 % Lymphocytes % 14.1 % Monocytes % 4.6 % Eosinophils % 0.2 % Basophils % 0.2 % Neutrophils # 6.8 (1.6-8.9) K/mcL Lymphocytes # 1.2 (0.6-4.6) K/mcL Monocytes # 0.4 (0.0-1.3) K/mcL Eosinophils # 0.0 (0.0-0.6) K/mcL Basophils # 0.0 (0.0-0.2) K/mcL Sodium 117 L* (136-145) mEq/L Potassium 3.6 (3.5-5.1) mEq/L Chloride 79 L (98-107) mEq/L Carbon Dioxide 31 H (23-29) mEq/L BUN 15 (8-23) mg/dL Creatinine 1.39 H (0.70-1.30) mg/dL Est GFR ( Amer) > 60 (> 60) Est GFR (Non-Af Amer) 52 L (> 60) BUN/Creatinine Ratio 11 (6-26) Glucose 123 H (70-105) mg/dL POC Glucose (70-99) mg/dL Calculated Osmolality 246 L (280-300) Calcium 8.4 L (8.6-10.3) mg/dL TSH 1.217 (0.340-5.600) mcIU/mL Urine Color Yellow (Yellow) Urine Clarity Clear (Clear) Urine pH 7.5 (5.0-8.0) pH Units Ur Specific [place] 1.007 L (1.010-1.025) Urine Protein Negative (Neg-Trace) mg/dL Urine Glucose (UA) Normal (Normal) mg/dL Urine Ketones Negative (Negative) mg/dL Urine Blood Negative (Negative) Urine Nitrite Negative (Negative) Urine Bilirubin Negative (Negative) Urine Urobilinogen Normal (Normal) mg/dL Ur Leukocyte Esterase Negative (Negative) Urine Osmolality (300-1090) mOsm/kg 04/19/18 04/20/18 04/20/18 Range/Units 23:21 01:44 01:44 WBC 6.5 (4.3-11.1) K/mcL RBC 3.22 L (4.19-5.50) M/mcL Hgb 11.0 L (12.9-16.9) g/dL Hct 30.1 L (37.5-50.1) % MCV 93.5 (83.0-100.0) fL MCH 34.2 H (28.0-33.3) pg MCHC 36.5 H (31.6-35.5) g/dL RDW 13.3 (11.5-14.5) % Plt Count 169 (140-400) K/mcL MPV 9.4 (9.4-12.4) fL Immature Gran % 0.5 (0-4) % Seg Neutrophils % 75.6 % Lymphocytes % 18.5 % Monocytes % 4.5 % Eosinophils % 0.6 % Basophils % 0.3 % Neutrophils # 4.9 (1.6-8.9) K/mcL Lymphocytes # 1.2 (0.6-4.6) K/mcL Monocytes # 0.3 (0.0-1.3) K/mcL Eosinophils # 0.0 (0.0-0.6) K/mcL Basophils # 0.0 (0.0-0.2) K/mcL Sodium 120 L* (136-145) mEq/L Potassium 3.3 L (3.5-5.1) mEq/L Chloride 80 L (98-107) mEq/L Carbon Dioxide 35 H (23-29) mEq/L BUN 14 (8-23) mg/dL Creatinine 1.31 H (0.70-1.30) mg/dL Est GFR ( Amer) > 60 (> 60) Est GFR (Non-Af Amer) 56 L (> 60) BUN/Creatinine Ratio 11 (6-26) Glucose 128 H (70-105) mg/dL POC Glucose (70-99) mg/dL Calculated Osmolality 252 L (280-300) Calcium 8.6 (8.6-10.3) mg/dL TSH (0.340-5.600) mcIU/mL Urine Color (Yellow) Urine Clarity (Clear) Urine pH (5.0-8.0) pH Units Ur Specific [place] (1.010-1.025) Urine Protein (Neg-Trace) mg/dL Urine Glucose (UA) (Normal) mg/dL Urine Ketones (Negative) mg/dL Urine Blood (Negative) Urine Nitrite (Negative) Urine Bilirubin (Negative) Urine Urobilinogen (Normal) mg/dL Ur Leukocyte Esterase (Negative) Urine Osmolality 166 L (300-1090) mOsm/kg 04/20/18 04/20/18 Range/Units 03:04 05:35 WBC (4.3-11.1) K/mcL RBC (4.19-5.50) M/mcL Hgb (12.9-16.9) g/dL Hct (37.5-50.1) % MCV (83.0-100.0) fL MCH (28.0-33.3) pg MCHC (31.6-35.5) g/dL RDW (11.5-14.5) % Plt Count (140-400) K/mcL MPV (9.4-12.4) fL Immature Gran % (0-4) % Seg Neutrophils % % Lymphocytes % % Monocytes % % Eosinophils % % Basophils % % Neutrophils # (1.6-8.9) K/mcL Lymphocytes # (0.6-4.6) K/mcL Monocytes # (0.0-1.3) K/mcL Eosinophils # (0.0-0.6) K/mcL Basophils # (0.0-0.2) K/mcL Sodium 122 L (136-145) mEq/L Potassium 3.5 (3.5-5.1) mEq/L Chloride 82 L (98-107) mEq/L Carbon Dioxide 35 H (23-29) mEq/L BUN 12 (8-23) mg/dL Creatinine 1.20 (0.70-1.30) mg/dL Est GFR ( Amer) > 60 (> 60) Est GFR (Non-Af Amer) > 60 (> 60) BUN/Creatinine Ratio 10 (6-26) Glucose 122 H (70-105) mg/dL POC Glucose 137 H (70-99) mg/dL Calculated Osmolality 255 L (280-300) Calcium 8.7 (8.6-10.3) mg/dL TSH (0.340-5.600) mcIU/mL Urine Color (Yellow) Urine Clarity (Clear) Urine pH (5.0-8.0) pH Units Ur Specific [place] (1.010-1.025) Urine Protein (Neg-Trace) mg/dL Urine Glucose (UA) (Normal) mg/dL Urine Ketones (Negative) mg/dL Urine Blood (Negative) Urine Nitrite (Negative) Urine Bilirubin (Negative) Urine Urobilinogen (Normal) mg/dL Ur Leukocyte Esterase (Negative) Urine Osmolality (300-1090) mOsm/kg Attestation Statement - Attestation Attestation: I examined this patient and my medical decision-making was reviewed with the Resident Physician. I agree with the documented findings, disposition and treatment plan as described except to the extent set forth below. Synopal pt with no concerning findings on EKG. Sodium 117. Hemodynamically normal with no neurologic symptoms or findings on exam. Stable admit.
== END 2018-04-22 11:37 | disposition home or self-care (01) | DRG 641 ==
LOC: 2NNU 18:21 → EMEROOARM 18:21 → 2NNU 23:37 → SUATTDRO 04-20 06:19
PROVIDERS: ADMIT Pediatrics; ATTEND Internal Medicine

== ENCOUNTER 2018-09-20 03:16 | Inpatient (IN) ==
--- NOTE | 2018-09-20 03:31 | Emergency Department Note ---
Disposition Clinical Impression: Anemia, ROMMEL (acute kidney injury), Dehydration Disposition: Admitted As Inpatient Condition: Fair Referrals: NONE,PCP [Primary Care Provider] - Time of Disposition: 06:01 General Adult HPI - General Stated complaint: weakness Time Seen by Provider: 09/20/18 03:30 Source: patient, EMS Limitations: no limitations Nursing Notes Reviewed: Yes Vital Signs Reviewed: Yes - History of Present Illness HPI Narrative: Patient is a 62-year-old male presenting with weakness. Patient has history of chronic lower extremity weakness, CHF, CVA, CAD, hypertension, hyperlipidemia. Per patient, he has had generalized weakness throughout the day, he states that when he woke up he went to go to the restroom, he usually is able to support his weight with his lower extremities and his arms to go to the bathroom, however today he was able to support his weight and fell down to the ground, he did not hit his head, he did not have any loss of consciousness. He states that he was able to get up, however he feels generalized weakness throughout. He denies any recent head injury, trauma, chest pain, shortness of breath, nausea, vomiting fevers or chills. Per significant other in the room, she states that all throughout today patient has been slightly confused and disoriented, we will make statements that do not make sense and he himself states that he feels confused. Patient denies any slurred speech, focal weakness, numbness or tingling or change in sensation. No abdominal pain, nausea or vomiting, no hematochezia, hematemesis or hematuria. No urinary symptoms. Pain Scale: 0 - Related Data Home Medications Medication Instructions Recorded Confirmed RX: Albuterol Sulfate [Proair Hfa] 2 puff IH Q4H PRN 04/19/18 04/19/18 RX: Aspirin Enteric Coated 81 mg PO DAILY 04/19/18 04/20/18 [Aspirin EC] RX: Atenolol/Chlorthalidone 0.5 tab PO HS 04/19/18 04/20/18 [Tenoretic 100 Tablet] RX: Cetirizine HCl [All Day 10 mg PO DAILY 04/19/18 04/19/18 Allergy] RX: Citalopram Hydrobromide 20 mg PO DAILY 04/19/18 04/20/18 [Citalopram HBr] RX: Clorazepate Dipotassium 15 mg PO DAILY 04/19/18 04/19/18 RX: EPINEPHrine [Epipen] 0.3 mg IM ONCE PRN 04/19/18 04/19/18 RX: Insulin ASPART [NovoLOG] 0 unit SQ TIDWM 04/19/18 04/20/18 RX: Insulin Glargine,Hum.rec.anlog 10 unit SQ HS 04/19/18 04/20/18 [Lantus Solostar] RX: Isosorbide DInitrate 20 mg PO HS 04/19/18 04/20/18 [Isosorbide Dinitrate] RX: Lisinopril [Zestril] 40 mg PO DAILY 04/19/18 04/20/18 RX: Nitroglycerin [Nitrostat] 0.4 mg SL Q5MIN PRN 04/19/18 04/19/18 RX: traZODone [TraZODone] 50 mg PO HS 04/19/18 04/19/18 Allergies Allergy/AdvReac Type Severity Reaction Status Date / Time Penicillins [PCN] Allergy See Verified 04/19/18 18:24 Comments All systems ED: reviewed and negative except as stated. Review of Systems: As Per HPI Constitutional: Reports: weakness, weight change. Denies: fever, chills ENT ED: Reports: ear pain. Denies: congestion, dysphagia Cardiovascular: Denies: chest pain, palpitations, dyspnea on exertion, edema, syncope Respiratory: Denies: cough, dyspnea, wheezes, hemoptysis, stridor Gastrointestinal: Denies: abdominal pain, nausea, vomiting, diarrhea, constipation, hematemesis, melena, hematochezia Genitourinary: Denies: urgency, dysuria, frequency, hematuria Musculoskeletal: Denies: back pain Integumentary: Denies: rash Neurological: Reports: weakness, confusion. Denies: headache, numbness, paresthesias Endocrine: Denies: fatigue Past Medical History - Past Medical History Attestation: Yes The following information was validated with the patient. Source: patient Medical history: Reports: COPD, CVA, diabetes, hyperlipidemia, hypertension, myocardial infarction, other Psychiatric history: Reports: anxiety, depression, PTSD - Social History Smoking Status: Current every day smoker Smokeless Tobacco Status: No Alcohol use: Reports: rarely Drug use: Reports: none Physical Exam - General Limitations: other (Patient is alert and oriented 3, no slurred speech) General appearance: alert, in no apparent distress - Head Head exam: atraumatic, normocephalic, normal inspection - Eye Eye exam: Present: normal appearance, PERRL, EOMI - ENT ENT exam: normal exam, normal oropharynx, mucous membranes dry - Neck Neck exam: Present: normal inspection, full ROM, trachea midline - Chest Chest inspection: Present: normal inspection, symmetric chest wall rise - Respiratory Respiratory exam: Present: prolonged expiratory phase. Absent: wheezes - Cardiovascular Cardiovascular exam: Present: regular rate, normal rhythm, normal heart sounds - Abdominal Exam Abdominal exam: Present: soft, Non-Tender. Absent: tenderness, distention, guarding, rebound, rigidity - Extremities Exam Extremities exam: Present: normal inspection, full ROM. Absent: tenderness, pedal edema - Expanded Lower Extremity Exam Neurovascular/Tendon exam: Absent: motor deficit, sensory deficit, tendon deficit - Back Exam Back exam: Present: normal inspection, full ROM. Absent: tenderness - Neurological Exam Neurological exam: Present: alert, oriented X3, CN II-XII intact. Absent: motor sensory deficit - Expanded Neurological Exam Patient oriented to: Present: person, place, time Speech: Present: fluid speech Cranial nerves: EOM function (II, III, IV, ): Normal, facial sensation (V): Normal, facial palsy (VII): Normal, spinal accessory function (XI): Normal, tongue deviation (XII): Normal Cerebellar function: finger to nose: Normal Motor strength - LUE: 5/5 Motor strength - RUE: 5/5 Motor strength - LLE: 5/5 Motor strength - RLE: 5/5 Upper motor neuron exam: thaddeus neglect: Absent bilaterally, pronator drift: Absent bilaterally Sensory exam upper extremity: light touch: Normal Sensory exam lower extremity: light touch: Normal Coma Scale Eye Opening: Spontaneous Coma Scale Motor Response: Obeys Commands Coma Scale Verbal Response: Confused Coma Scale Total: 14 - Psychiatric Psychiatric exam: Present: normal affect, normal mood - Skin Skin exam: Present: warm, dry, intact, other (Patient appears slightly pale). Absent: diaphoresis Course Vital Signs Temperature 97.7 F 09/20/18 03:25 Pulse Rate 73 09/20/18 03:25 Respiratory Rate 16 09/20/18 03:25 Blood Pressure 80/47 09/20/18 03:25 O2 Sat by Pulse Oximetry 100 09/20/18 03:25 Temperature 97.7 F 09/20/18 03:25 Pulse Rate 67 09/20/18 05:13 Respiratory Rate 18 09/20/18 05:13 Blood Pressure 95/56 09/20/18 05:13 O2 Sat by Pulse Oximetry 100 09/20/18 05:13 Oxygen Delivery Oxygen Delivery Nasal Cannula Medical Decision Making - [facility] Narrative Medical decision making narrative: Patient is a 62-year-old male presenting with weakness. Patient has history of CAD, CHF, hypertension, hyperlipidemia as well as CVA. Patient has chronic lower extrude he weakness, at baseline he is not able to ambulate. He states however today he said increased generalized weakness with feelings of confusion and disorientation. He denies any falls other than this morning when he was going from his bed to his bedside commode, he slumped down onto the ground as he was unable to hold himself up. No loss of consciousness. On arrival, patient seemed slightly confused, however is alert and oriented 3, he follows commands and is appropriately, however per significant other in the room, this is not his usual demeanor, no recent drug or alcohol use. Patient denies chest pain, shortness of breath, he chronically wears oxygen at home. Vital signs on arriva l show regular rate and rhythm with hypotension of 60 systolic, 40 diastolic. Multiple repeat blood pressures were taken during this time which all resolved to be the same numbers. Patient also states that he has had seen it lightheaded and dizziness today. No loss of consciousness. On examination, he is cooperative with examination, follows commands, GCS of 14, NIH of 0. No focal neurological signs or symptoms. CBC shows slight anemia at 8.3 down from 9.5 on last admission. No leukocytosis. BMP shows sodium of 125, with stable creatinine elevated at 2.17. Patient has history of hyponatremia in the past as low as 117, back and April when he was admitted. He had a 5 day length of stay at that point. Troponin is within normal limits, EKG shows no acute ischemic changes, chest x-ray is negative, BNP is 100, seemingly decreased from prior visits, do not suspect CHF exacerbation. Feel as though this point in time, this is mostly secondary to dehydration. Patient was given a total of 1 L of fluids with response of 95 systolic blood pressure. At this point in time we will admit the patient for further observation and treatment. Hospitalist requested 1L NS, will order this now. - Medical Records Medical records reviewed: Yes I reviewed the patient's medical records. - Lab Data Lab results reviewed: Yes I reviewed the patient's lab results. Result diagrams: 09/20/18 04:11 09/20/18 04:11 Lab Results 09/20/18 09/20/18 09/20/18 Range/Units 04:11 04:11 04:11 WBC 8.7 (4.3-11.1) K/mcL RBC 2.47 L (4.19-5.50) M/mcL Hgb 8.7 L (12.9-16.9) g/dL Hct 25.6 L (37.5-50.1) % MCV 103.6 H (83.0-100.0) fL MCH 35.2 H (28.0-33.3) pg MCHC 34.0 (31.6-35.5) g/dL RDW 14.0 (11.5-14.5) % Plt Count 231 (140-400) K/mcL MPV 8.9 L (9.4-12.4) fL Immature Gran % 0.5 (0-4) % Seg Neutrophils % 71.8 % Lymphocytes % 20.5 % Monocytes % 6.1 % Eosinophils % 1.0 % Basophils % 0.1 % Neutrophils # 6.3 (1.6-8.9) K/mcL Lymphocytes # 1.8 (0.6-4.6) K/mcL Monocytes # 0.5 (0.0-1.3) K/mcL Eosinophils # 0.1 (0.0-0.6) K/mcL Basophils # 0.0 (0.0-0.2) K/mcL Sodium (136-145) mEq/L Potassium (3.5-5.1) mEq/L Chloride (98-107) mEq/L Carbon Dioxide (23-29) mEq/L BUN (8-23) mg/dL Creatinine (0.70-1.30) mg/dL Est GFR ( Amer) (> 60) Est GFR (Non-Af Amer) (> 60) BUN/Creatinine Ratio (6-26) Glucose (70-105) mg/dL Calculated Osmolality (280-300) Lactic Acid 3.0 H (0.5-2.2) mmol/L Calcium (8.6-10.3) mg/dL Phosphorus 3.2 (2.7-4.5) mg/dL Magnesium 1.5 L (1.6-2.6) mg/dL Total Bilirubin (0.3-1.0) mg/dL Direct Bilirubin (0.0-0.2) mg/dL Indirect Bilirubin (0.0-1.2) mg/dL AST (13-39) Units/L ALT (7-52) Units/L Alkaline Phosphatase (34-104) Units/L Ammonia (16-53) mcmol/L Troponin I < 0.03 (< 0.04) ng/mL B-Natriuretic Peptide (Less than 100) pg/mL Serum Total Protein (6.4-8.9) g/dL Albumin (3.5-5.7) g/dL Globulin (2.4-3.5) g/dL Albumin/Globulin Ratio (1.1-2.2) 09/20/18 09/20/18 09/20/18 Range/Units 04:11 04:11 04:11 WBC (4.3-11.1) K/mcL RBC (4.19-5.50) M/mcL Hgb (12.9-16.9) g/dL Hct (37.5-50.1) % MCV (83.0-100.0) fL MCH (28.0-33.3) pg MCHC (31.6-35.5) g/dL RDW (11.5-14.5) % Plt Count (140-400) K/mcL MPV (9.4-12.4) fL Immature Gran % (0-4) % Seg Neutrophils % % Lymphocytes % % Monocytes % % Eosinophils % % Basophils % % Neutrophils # (1.6-8.9) K/mcL Lymphocytes # (0.6-4.6) K/mcL Monocytes # (0.0-1.3) K/mcL Eosinophils # (0.0-0.6) K/mcL Basophils # (0.0-0.2) K/mcL Sodium 125 L (136-145) mEq/L Potassium 3.4 L (3.5-5.1) mEq/L Chloride 86 L (98-107) mEq/L Carbon Dioxide 26 (23-29) mEq/L BUN 17 (8-23) mg/dL Creatinine 2.15 H (0.70-1.30) mg/dL Est GFR ( Amer) 38 L (> 60) Est GFR (Non-Af Amer) 31 L (> 60) BUN/Creatinine Ratio 8 (6-26) Glucose 121 H (70-105) mg/dL Calculated Osmolality 263 L (280-300) Lactic Acid (0.5-2.2) mmol/L Calcium 8.8 (8.6-10.3) mg/dL Phosphorus (2.7-4.5) mg/dL Magnesium (1.6-2.6) mg/dL Total Bilirubin 0.9 (0.3-1.0) mg/dL Direct Bilirubin 0.4 H (0.0-0.2) mg/dL Indirect Bilirubin 0.5 (0.0-1.2) mg/dL AST 19 (13-39) Units/L ALT 11 (7-52) Units/L Alkaline Phosphatase 80 (34-104) Units/L Ammonia 33 (16-53) mcmol/L Troponin I (< 0.04) ng/mL B-Natriuretic Peptide 103 H (Less than 100) pg/mL Serum Total Protein 6.3 L (6.4-8.9) g/dL Albumin 3.3 L (3.5-5.7) g/dL Globulin 3.0 (2.4-3.5) g/dL Albumin/Globulin Ratio 1.1 (1.1-2.2) - Radiology Data Radiology results reviewed: Yes I reviewed the patient's radiology results. Chest X-Ray 09/20/18 03:53 IMPRESSION: No acute findings. D/ / Leonard Graham / Leonard Graham Interpreting Provider: Leonard Graham - EKG Data EKG #1 EKG attestation: Yes I reviewed and interpreted this EKG. EKG results narrative: EKG performed at 0 327 with ventricular rate of 71, regular rhythm, normal axis, significant low voltage no ST elevation or depression. Nonspecific T-wave changes. Critical Care Time Critical Care Time: Yes Total Critical Care Time: 35 Attestation: Acute hypotension requiring fluid resuscitation. Acute renal insufficiency. Acute hyponatremia S.Sachin - Meg Situation: Demographics, MOA Background: Presenting Complaint, Relevant PMH, Meds, & Allergies Assessment: Vital Signs, Course and respsone to treatment, Exam Concerns, Patient/Family Expectation, Pertinant Lab Results, Outstanding Labs Recommendation: Barrier(s) to disposition, Recommendation based on pending studies, treatments, or consults SGiorgio Report Given to: Dr. Yudi Weaver Repor Time: 06:01 (accepted) Attestation Statement - Attestation Attestation: Dr. Davis note: Patient seen in conjunction with ER Resident Dr Pierre. Please see her charting for complete documentation. Assessment [id number] time with the patient and I agree with patient's treatment and disposition. Patient presented fatigued and hypotensive. Much improved after fluid resuscitation. Acute renal injury noted. Hyponatremia noted. Admitted in stable and improved condition to hospitalist Dr. Bagley
[2018-09-20] MEDS ORDERED: 0.9 % Sodium Chloride 1,000 ML IVC ONE ×2 (03:53→05:58)
[2018-09-20 04:35] LABS: Basophils % 0.1 %; Eosinophils # 0.1 K/mcL (0.0-0.6); Hematocrit 25.6 % (37.5-50.1); Hemoglobin 8.7 g/dL (12.9-16.9); Immature Granulocytes % 0.5 % (0-4); Lymphocytes # 1.8 K/mcL (0.6-4.6); Lymphocytes % 20.5 %; Mean Corpuscular Hemoglobin 35.2 pg (28.0-33.3); Mean Corpuscular Volume 103.6 fL (83.0-100.0); Mean Platelet Volume 8.9 fL (9.4-12.4); Monocytes # 0.5 K/mcL (0.0-1.3); Monocytes % 6.1 %; Neutrophils # 6.3 K/mcL (1.6-8.9); Platelet Count 231 K/mcL (140-400); Red Blood Count 2.47 M/mcL (4.19-5.50); Segmented Neutrophils % 71.8 %
[2018-09-20 04:40] LABS: Albumin 3.3 g/dL (3.5-5.7); Albumin/Globulin Ratio 1.1 (1.1-2.2); Bilirubin,Direct 0.4 mg/dL (0.0-0.2); Bilirubin,Indirect 0.5 mg/dL (0.0-1.2); Bilirubin,Total 0.9 mg/dL (0.3-1.0); Calcium 8.8 mg/dL (8.6-10.3); Potassium 3.4 mEq/L (3.5-5.1); Total Protein 6.3 g/dL (6.4-8.9)
[2018-09-20 04:47] LABS: Magnesium 1.5 mg/dL (1.6-2.6); Phosphorous 3.2 mg/dL (2.7-4.5)
[2018-09-20 04:48] LABS: Troponin I < 0.03 ng/mL (< 0.04)
[2018-09-20 06:49] LABS: Bilirubin,Urine Negative (Negative); Blood,Urine Negative (Negative); Clarity,Urine Clear (Clear); Color,Urine Yellow (Yellow); Glucose,Urine (UA) Normal (Normal); Ketones,Urine Negative (Negative); Leukocyte Esterase,Urine Negative (Negative); Nitrite,Urine Negative (Negative); PH,Urine 5.5 pH Units (5.0-8.0); Protein,Urine Negative (Neg-Trace); Specific Gravity,Urine 1.014 (1.010-1.025); Urobilinogen,Urine Normal (Normal)
[2018-09-20] MEDS ORDERED: Naloxone 0.4 MG/ML INJ IVP PRN (07:43)
[2018-09-20] MEDS ORDERED: 0.9 % Sodium Chloride 1,000 ML IVC SCH (07:45)
[2018-09-20] MEDS ORDERED: D5% in Water 1,000 ML IVC PRN (07:53)
[2018-09-20] MEDS ORDERED: *HR* Dextrose 50 % in Water (Syg) 50 ML SYRINGE IVP PRN (07:53)
[2018-09-20] MEDS ORDERED: Dextrose Gel 15 GM/37.5 ML TUBE PO PRN ×2 (07:53)
--- NOTE | 2018-09-20 09:06 | Internal Med History&Physical ---
Date of Encounter: 09/20/18 Time of Encounter: 08:30 Internal Medicine - H&P: HPI Chief complaint: Weakness, fatigue, dizziness, altered mental status History of present illness: Mr. Toure is a 62 year old male with pmh of CAD, hypertension, hyperlipidemia presenting with complaints of generalized weakness, weight loss, dizziness for a long time which appears to be getting worse. Patient was admitted in april, for similar complaints and it was noted then that he was hyponatremic and hypoglycemic on admission. He comes back this time with similar complaints which appears to have gotten worse in the past week. His says he has been more confused in the last 24 hrs. He has been extremely dizzy on getting up and can't seem to ambulate without support and with the new confusion they decided to bring him in. He denies any other acute complaints such as fevers, chills or shortness of breath or abdominal pain. On arrival, he was hypotensive to 60/40 and had an elevated lactate of 3. He was given 2L of IV fluids and his BP is now in the low 80s/ high 70s. he was also noted to be hyponatremic at 125. He is being admitted for further management Past Med Surg Social Fam HX - Past Medical History Medical history: COPD, CVA, diabetes, hyperlipidemia, hypertension, myocardial infarction, other Additional medical history: sleep apnea Psychiatric history: anxiety, depression, PTSD - Social History Smoking Status: Current every day smoker Smokeless Tobacco Status: No Alcohol use: rarely Drug use: none Internal Medicine - H&P: Meds Albuterol Sulfate [Proair Hfa] 2 puff IH Q4H PRN 04/19/18 [History] Aspirin Enteric Coated [Aspirin EC] 81 mg PO DAILY 04/19/18 [History] Atenolol/Chlorthalidone [Tenoretic 100 Tablet] 0.5 tab PO HS 04/19/18 [History] Cetirizine HCl [All Day Allergy] 10 mg PO DAILY 04/19/18 [History] Citalopram Hydrobromide [Citalopram HBr] 20 mg PO DAILY 04/19/18 [History] Clorazepate Dipotassium 15 mg PO DAILY 04/19/18 [History] EPINEPHrine [Epipen] 0.3 mg IM ONCE PRN 04/19/18 [History] Insulin ASPART [NovoLOG] 0 unit SQ TIDWM 04/19/18 [History] Insulin Glargine,Hum.rec.anlog [Lantus Solostar] 10 unit SQ HS 04/19/18 [History] Isosorbide DInitrate [Isosorbide Dinitrate] 20 mg PO HS 04/19/18 [History] Lisinopril [Zestril] 40 mg PO DAILY 04/19/18 [History] Nitroglycerin [Nitrostat] 0.4 mg SL Q5MIN PRN 04/19/18 [History] traZODone [TraZODone] 50 mg PO HS 04/19/18 [History] Allergy/AdvReac Type Severity Reaction Status Date / Time Penicillins [PCN] Allergy See Verified 04/19/18 18:24 Comments All Systems PM: A 10-system review of systems was performed and is negative for pertinent findin gs except as documented above in the HPI. - Constitutional Constitutional: lethargy, malaise, weight loss, no chills, no fever(s), no night sweats - EENT Eyes: no change in vision, no discharge, no pain, no photophobia Ears: no ear discharge, no ear pain, no tinnitus Nose, mouth and throat: no dysphagia, no nasal discharge, no neck pain, no sore throat - Cardiovascular Cardiovascular ROS IM: no chest pain, no diaphoresis, no dyspnea, no lightheadedness, no palpitations, no syncope - Respiratory Respiratory: no cough, no dyspnea, no wheezing, no excessive phlegm production - Gastrointestinal Gastrointestinal: no abdominal pain, no diarrhea, no hematemesis, no hematochezia, no melena, no nausea, no vomiting - Musculoskeletal Musculoskeletal ROS IM: no numbness, no tingling - Integumentary Integumentary IM: no rash, no unusual bruising - Neurological Neurological ROS: no confusion, no convulsions, no focal weakness, no numbness, no tingling, no tremor(s) - Hematologic/Lymphatic Hematologic/Lymphatic: no easy bruising - Constitutional Vitals: Temp Pulse Resp BP Pulse Ox 97.7 F 67 18 98/60 100 09/20/18 03:25 09/20/18 05:13 09/20/18 07:41 09/20/18 07:41 09/20/18 05:13 General appearance: Present: no acute distress, obese Exam: lethargic - Head Head exam: Present: atraumatic, normocephalic - Eye Eye exam: Present: PERRL, conjuntiva pink, sclera anicteric Pupils: Present: PERRL - Neck Neck exam general surgery: Present: supple, trachea midline. Absent: lymphadenopathy - Respiratory Respiratory exam: Present: CTAB. Absent: accessory muscle use, rales, rhonchi, wheezes - Cardiovascular Cardiovascular exam: Present: RRR, +S1, +S2. Absent: diastolic murmur, gallop, rubs, systolic murmur - GI/Abdominal GI/Abdominal exam: Present: normal bowel sounds, soft, no peritoneal signs. Absent: distended, tenderness - Extremities Exam Extremities exam: Present: warm, radial pulses palpable and symmetrical. Absent: calf tenderness, cyanotic, pedal edema - Neurological Exam Neurological exam: Present: CN II-XII intact, oriented X3, no focal deficits. Absent: pronater drift, facial droop, speech deficit - Skin Skin exam: Present: dry, intact Internal Med - H&P Results - Labs CBC & Chem 7: 09/20/18 04:11 09/20/18 04:11 Labs: Short CBC 09/20/18 Range/Units 04:11 WBC 8.7 (4.3-11.1) K/mcL Hgb 8.7 L (12.9-16.9) g/dL Hct 25.6 L (37.5-50.1) % Plt Count 231 (140-400) K/mcL Neutrophils # 6.3 (1.6-8.9) K/mcL BMP 09/20/18 04:11 Sodium 125 L Potassium 3.4 L Chloride 86 L Carbon Dioxide 26 BUN 17 Creatinine 2.15 H Glucose 121 H Calcium 8.8 Cardiac Enzymes 09/20/18 Range/Units 04:11 Troponin I < 0.03 (< 0.04) ng/mL Liver Function 09/20/18 Range/Units 04:11 Total Bilirubin 0.9 (0.3-1.0) mg/dL Direct Bilirubin 0.4 H (0.0-0.2) mg/dL AST 19 (13-39) Units/L ALT 11 (7-52) Units/L Alkaline Phosphatase 80 (34-104) Units/L Albumin 3.3 L (3.5-5.7) g/dL Urine 09/20/18 Range/Units 06:33 Urine Color Yellow (Yellow) Urine Clarity Clear (Clear) Urine pH 5.5 (5.0-8.0) pH Units Ur Specific [place] 1.014 (1.010-1.025) Urine Protein Negative (Neg-Trace) mg/dL Urine Glucose (UA) Normal (Normal) mg/dL - Impressions ITS Impressions Chest X-Ray 09/20/18 03:53 IMPRESSION: No acute findings. D/ / Leonard Graham / Leonard Graham Interpreting Provider: Leonard Graham - Assessment and plan (1) Hypotension Current Visit: Yes Status: Acute Assessment and plan: Pt comes in with fatigue , weakness, dizziness which appears to be chronic and has gotten acutely worse. Was admitted in [facility] with hyponatremia and hypoglycemia BP was 60/40 on arrival and is now in the low 80s after a 2l Bolus. Was hyponatremic on presentation and had a high lactate. Etiology could be secondary to adrenal insufficiency vs sepsis vs severe dehydration Will continue IV fluids with normal saline. Obtain blood cultures, CPK, cortisol , ACTH. Initial trops normal Obtain CT head and CT abdomen to evaluate adrenal glands. Started empirically on ceftriaxone. Repeat lactic acid. Will give stress dose of steroids if BP remains low/ begins to drop despite fluids/ depending on cortisol levels D/C antibiotics if cultures are negative ICU consulted and appreciate recs Qualifiers: Hypotension type: idiopathic hypotension Qualified Code(s): I95.0 - Idiopathic hypotension (2) Acute metabolic encephalopathy Current Visit: Yes Status: Acute Assessment and plan: Likely secondary to hypotension. see #1 (3) ROMMEL (acute kidney injury) Current Visit: Yes Status: Acute Assessment and plan: Creatinine elevated at 2.15. Will hydrate with IV fluids (4) Hyponatremia Current Visit: Yes Status: Acute Assessment and plan: May be secondary to adrenal insufficiency. will give Iv fluids with normal saline and monitor BMP (5) Hypokalemia Current Visit: Yes Status: Acute Assessment and plan: Hypokalemia and hypomagnesemia. Replaced (6) DVT prophylaxis Current Visit: Yes Status: Acute Assessment and plan: Heparin sc - Time Spent With Patient Total time spent is greater than 50% in coordination of care (as documented) at patient's floor/unit and/or counseling patient:
[2018-09-20] MEDS: 0.9 % Sodium Chloride 1,000 ML IVC SCH ×2 (10:06→21:34)
[2018-09-20] MEDS: cefTRIAXone 1,000 MG in Water for inj. (sterile) 20 ML 10 ML IVP SCH (10:06)
[2018-09-20] MEDS: Aspirin Enteric Coated 81 MG Tablet PO SCH (10:07)
[2018-09-20] MEDS: Potassium Chloride Elixir 20 MEQ/15 ML UDC PO SCH ×2 (10:07→12:55)
[2018-09-20 10:28] LABS: Estimated Average Glucose 94 mg/dl; Hemoglobin A1C 4.9 %
[2018-09-20] MEDS ORDERED: Acetaminophen 325 MG TABLET PO PRN (10:53)
[2018-09-20] MEDS ORDERED: traMADol 50 MG TABLET PO PRN ×2 (10:53→11:22)
[2018-09-20] MEDS ORDERED: Cosyntropin 250 MCG/2 ML VIAL IVP ONE (10:56)
[2018-09-20] MEDS: Insulin LISPRO 300 UNITS/3 ML VIAL SQ SCH ×2 (12:22→16:50)
[2018-09-20] MEDS: Acetaminophen 325 MG TABLET PO PRN (12:55)
--- NOTE | 2018-09-20 13:20 | Pulmonology Consult Note ---
<Juan DavidjavyNate miller M - Last Filed: 09/20/18 17:26> Date of Encounter: 09/20/18 Medications and Allergies Aspirin Enteric Coated [Aspirin EC] 81 mg PO DAILY 04/19/18 [History] Atenolol/Chlorthalidone [Tenoretic 100 Tablet] 0.5 tab PO BID 04/19/18 [History] Cetirizine HCl [All Day Allergy] 10 mg PO DAILY 04/19/18 [History] Citalopram Hydrobromide [Citalopram HBr] 40 mg PO HS 04/19/18 [History] Clorazepate Dipotassium 15 mg PO BID PRN 04/19/18 [History] EPINEPHrine [Epipen] 0.3 mg IM ONCE PRN 04/19/18 [History] Insulin ASPART [NovoLOG] 0 unit SQ TIDWM 04/19/18 [History] Insulin Glargine,Hum.rec.anlog [Lantus Solostar] 10 unit SQ HS 04/19/18 [History] Isosorbide DInitrate [Isosorbide Dinitrate] 20 mg PO HS 04/19/18 [History] Lisinopril [Zestril] 40 mg PO HS 04/19/18 [History] Nitroglycerin [Nitrostat] 0.4 mg SL Q5MIN PRN 04/19/18 [History] traZODone [TraZODone] 50 mg PO HS 04/19/18 [History] Aspirin [Ecotrin] 325 mg PO HS 09/20/18 [History] Aspirin/Calcium Carbonate/Mag [Aspirin Buffered 325 mg Tab] 325 mg PO 09/20/18 [History] Docusate [Colace] 100 mg PO DAILY PRN 09/20/18 [History] Furosemide [Lasix] 20 mg PO DAILY 09/20/18 [History] Gabapentin [Neurontin] 1,200 mg PO HS 09/20/18 [History] Gabapentin [Neurontin] 600 mg PO DAILY 09/20/18 [History] Potassium Chloride [Klor-Con 10] 10 meq PO BID 09/20/18 [History] Allergy/AdvReac Type Severity Reaction Status Date / Time Penicillins [PCN] Allergy See Verified 04/19/18 18:24 Comments All Systems: The remainder of the systems were reviewed and are negative Physical Examination Vital Signs: Vital Signs, Last 4 Hours Temp Pulse Resp BP Pulse Ox 09/20/18 16:41 97.9 F 63 16 129/76 99 Results - Laboratory Findings CBC and BMP: 09/20/18 04:11 09/20/18 04:11 Abnormal lab findings: Abnormal lab results RBC 2.47 M/mcL (4.19-5.50) L 09/20/18 04:11 Hgb 8.7 g/dL (12.9-16.9) L 09/20/18 04:11 Hct 25.6 % (37.5-50.1) L 09/20/18 04:11 MCV 103.6 fL (83.0-100.0) H 09/20/18 04:11 MCH 35.2 pg (28.0-33.3) H 09/20/18 04:11 MPV 8.9 fL (9.4-12.4) L 09/20/18 04:11 Sodium 125 mEq/L (136-145) L 09/20/18 04:11 Potassium 3.4 mEq/L (3.5-5.1) L 09/20/18 04:11 Chloride 86 mEq/L (98-107) L 09/20/18 04:11 Creatinine 2.15 mg/dL (0.70-1.30) H 09/20/18 04:11 Est GFR ( Amer) 38 (> 60) L 09/20/18 04:11 Est GFR (Non-Af Amer) 31 (> 60) L 09/20/18 04:11 Glucose 121 mg/dL (70-105) H 09/20/18 04:11 Calculated Osmolality 263 (280-300) L 09/20/18 04:11 Magnesium 1.5 mg/dL (1.6-2.6) L 09/20/18 04:11 Direct Bilirubin 0.4 mg/dL (0.0-0.2) H 09/20/18 04:11 B-Natriuretic Peptide 103 pg/mL (Less than 100) H 09/20/18 04:11 Serum Total Protein 6.3 g/dL (6.4-8.9) L 09/20/18 04:11 Albumin 3.3 g/dL (3.5-5.7) L 09/20/18 04:11 - Microbiology Findings Microbiology Findings: Microbiology, Last 48 Hours 09/20/18 06:19 Blood Culture - Preliminary Peripheral Venipuncture Culture is incubating and being continuously monitored for growth. Final report to follow. 09/20/18 06:19 Blood Culture - Preliminary Peripheral Venipuncture Culture is incubating and being continuously mo nitored for growth. Final report to follow. - Clinical Findings Intake & Output: Intake & Output 09/20/18 09/20/18 09/20/18 07:59 15:59 23:59 Intake Total 1000 / 1000 1010 / 1010 104 / 104 Balance 1000 / 1000 1010 / 1010 104 / 104 Weight 121.155 kg Consult Discharge Plan - Plan Referrals: NONE,PCP [Primary Care Provider] - - Attending Attestation I examined this patient and my medical decision-making was reviewed with the Resident Physician. I agree with the documented findings, disposition and treatment plan as described except to the extent set forth below. Patient seen and examined. Labs, radiology, chart personally reviewed. 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 I suspect this is multifactorial and his significant other at the bedside stated he has lost significant weight and he has poor appetite set this is combination of not being taking orally as well as side effect of medications. This is needed to be adjusted and nephrology consultation is recommended regarding his blood pressure as well. He needs to follow-up as outpatient with his primary care to adjust his medications when his discharge from the hospital. I suspect his hypotension is multifactorial and it appears to me he is deconditioned and needs physical therapy. Since he has significant weight loss scanning of his chest abdomen and pelvis is recommended to check for any hidden malignancies. Patient also has diagnosis of obstructive sleep apnea but he is not on treatment because he could not tolerate it and that can be addressed as outpatient. Unlikely this is adrenal insufficiency from his cortisol level which is in the low side, but not completely abnormal. Patient does not need to be admitted to ICU based on his response to fluid and please call for any questions and thank you for consultation. <Prakash Winter - Last Filed: 09/21/18 07:25> Date of Encounter: 09/21/18 Time of Encounter: 13:19 Assessment and Plan (1) Hypotension Current Visit: Yes Status: Acute This is a 62-year-old male with past medical history significant for CAD, hypertension, hyperlipidemia, CVA, COPD, diabetes who presents with complaints of generalized weakness, weight loss, dizziness over the course of the past ye ar, and getting worse. - Pt presented with similar complaint in Apr 2018 - Additionally noted to be hyponatremic = 125, with low K, low Cl, low Mg as well - Home BP meds include: Atenolol/ Chlorthalidone, Lisinopril, Isosorbide Dinitrate, Furosemide - Initially presented with BP = 60/40 - BP initially responded to 2 L IVF - CXR, CT Abd/Pelvis, CT Head negative for any acute findings - Eval for adrenal insufficiency indicates low normal cortisol levels; ACTH stim test essentially benign - unlikely adrenal insufficiency PLAN: Pt initially presented with severe hypotension, in the setting of significant weight loss, malnutrition, and probably dehydration. BP responded to IVF. Adrenal workup was essentially negative ruling out adrenal insufficiency. Hypotension likely secondary to dehydration/ malnutrition vs medication related given significant electrolyte abnormalities. In setting of negative CXR, CT abd/pelvis, CT head, and pt afebrile without leukocytosis, less likely pt has i nfectious process behind presentation, and thus far, no evidence of malignancy. - Cont fluid resuscitation with NS --> moderate hyponatremia; avoid overcorrection of Na by more than 4-6 mEq in 24 hrs - Monitor vitals/ O2 Sat for worsening signs/ symptoms - Follow up blood culture - DC abx with negative cx - BP medication management - seems likely BP medications could have contributed to hypotension and electrolyte abnormalities, in addition to dehydration/ malnutrition - Nutrition consult - PT/OT - likely a component of deconditioning with process going on for over a year Qualifiers: Hypotension type: idiopathic hypotension Qualified Code(s): I95.0 - Idiopathic hypotension (2) Hyponatremia Current Visit: Yes Status: Acute Initial Na = 125 on presentation = moderate hyponatremia; Serum Osm = 263 - Possibly medication related (Use of both thiazide and Loop diuretics per home meds list) - No evidence of hyperglycemia, unlikely pseudohyponatremia - Given low serum osm, use of diuretics, other electrolyte abnormalities, hypotension likely hypovolemic hyponatremia - Responded to IVF and low suspicion for adrenal insufficiency PLAN: - Hold all diuretics - Avoid overcorrection of Na - BP Medication Managemetn - Cont NS - Otherwise plan as above History of Present Illness Consult date: 09/20/18 Requesting physician: Nellie Garg Reason for consult: other (Persistent Hypotension) Chief complaint: Weakness, Dizziness History of present illness: This is a 62-year-old male with past medical history significant for CAD, hypertension, hyperlipidemia, CVA, COPD, diabetes who presents with complaints of generalized weakness, weight loss, dizziness over the course of the past year, and getting worse. Patient was admitted in April 2018 with similar complaints, and noted to be hyponatremic and hyperglycemic on presentation. Patient has extensive medical history. Notes that for the past year, he has noticed himself becoming increasingly fatigued, with lower extremity weakness, dizziness, and confusion that comes and goes. Patient states that he has been wheelchair bound during that time. States that when he tries to stand up and walk, he either gets dizzy or his legs "feel like Jell-O". Subsequently, patient notes multiple falls, and states he has had 17 concussions in the past year. Additionally notes decreased appetite, and significant (greater than 100 pounds) weight loss. Over the past 1-2 days, patient's notes that he has been increasingly confused, lethargic, dizzy and weak. Recently being treated for sinus infection with OTC antihistamines. Denies fevers/chills, chest pain, SOB, abdominal pain. Upon arrival to the ED, patient was noted to be hypotensive to 60/40. Initial lactate = 3. Given 2 L of fluids, and blood pressure noted to be 80/47. Pt also noted to be hyponatremic = 125 on presentation. Pt BP currently responding to IVF. CXR, CT Abd/Pelvis, CT Head negative for any acute findings. CXR (09/20/18): No acute findings CT Abd/Pelvis (09/20/18): No acute abdominal or pelvic abnormality. Unremarkable appearance of the adrenal glands without contrast. Aortoiliac atherosclerotic calcifications CT Head (09/20/18): No acute intracranial abnormality; Cerebral Atrophy On my examination, pt resting comfortably in bed in no acute distress. O2 Sats appropriate on 3L O2 via NC. Pt talkative, alert, oriented. Notes weakness of lower extremities, dizziness/ lightheadedness, especially when getting up to stand, but otherwise denies fevers/chills, headache, chest pain, SOB, abdominal pain, n/v/d. Past Med Surg Social Fam HX - Past Medical History Attestation: Yes The following information was validated with the patient. Source: patient, old records reviewed Medical history: COPD, CVA, diabetes, hyperlipidemia, hypertension, myocardial infarction, other Additional medical history: sleep apnea Psychiatric history: anxiety, depression, PTSD - Past Surgical History Surgical History: tonsilectomy - Social History Smoking Status: Current every day smoker Smokeless Tobacco Status: No Alcohol use: none Drug use: none All Systems: The remainder of the systems were reviewed and are negative - Constitutional Constitutional: lethargy, weakness, no chills, no fatigue, no fever(s), no headache(s) - EENT Eyes: no loss of vision Ears: no decreased hearing Nose, mouth and throat: no headache(s), no nasal congestion, no sinus pain - Cardiovascular Cardiovascular: edema, leg edema, lightheadedness, no chest pain, no chest pain at rest, no dyspnea, no dyspnea on exertion, no radiating jaw, neck or arm pain, no syncope - Respiratory Respiratory: no cough, no dyspnea, no dyspnea on exertion - Gastrointestinal Gastrointestinal: no abdominal pain, no diarrhea, no nausea, no vomiting - Musculoskeletal Musculoskeletal: back pain - Integumentary Integumentary: no rash - Neurological Neurological: dizziness, frequent falls, weakness, no confusion, no headache(s) - Psychiatric Psychiatric: anxiety - Endocrine Endocrine: fatigue Physical Examination Vital Signs: Vital Signs, Last 4 Hours Temp Pulse Resp BP 09/20/18 12:19 97.7 F 63 20 106/60 09/20/18 10:57 113/61 General appearance: no acute distress, alert Eyes: nonicteric ENT: oropharynx moist Neck: supple Effort: normal Auscultation: bilateral: clear (No wheezes, rales, rhonchi, crackles) Cardiovascular: regular rate and rhythm Gastrointestinal: normoactive bowel sounds, soft, non-tender, non-distended Integumentary: normal Extremities: edema (Mild lower extremity edema b/l) normal mental status, non-focal exam (4/5 strength lower extremities b/l; 5/5 upper extremity strength b/l), pupils equal and round, CN II-XII normal mood appropriate, affect normal Results - Laboratory Findings CBC and BMP: 09/21/18 04:42 09/21/18 04:42 Abnormal lab findings: Abnormal lab results RBC 2.47 M/mcL (4.19-5.50) L 09/20/18 04:11 Hgb 8.7 g/dL (12.9-16.9) L 09/20/18 04:11 Hct 25.6 % (37.5-50.1) L 09/20/18 04:11 MCV 103.6 fL (83.0-100.0) H 09/20/18 04:11 MCH 35.2 pg (28.0-33.3) H 09/20/18 04:11 MPV 8.9 fL (9.4-12.4) L 09/20/18 04:11 Sodium 125 mEq/L (136-145) L 09/20/18 04:11 Potassium 3.4 mEq/L (3.5-5.1) L 09/20/18 04:11 Chloride 86 mEq/L (98-107) L 09/20/18 04:11 Creatinine 2.15 mg/dL (0.70-1.30) H 09/20/18 04:11 Est GFR ( Amer) 38 (> 60) L 09/20/18 04:11 Est GFR (Non-Af Amer) 31 (> 60) L 09/20/18 04:11 Glucose 121 mg/dL (70-105) H 09/20/18 04:11 Calculated Osmolality 263 (280-300) L 09/20/18 04:11 Magnesium 1.5 mg/dL (1.6-2.6) L 09/20/18 04:11 Direct Bilirubin 0.4 mg/dL (0.0-0.2) H 09/20/18 04:11 B-Natriuretic Peptide 103 pg/mL (Less than 100) H 09/20/18 04:11 Serum Total Protein 6.3 g/dL (6.4-8.9) L 09/20/18 04:11 Albumin 3.3 g/dL (3.5-5.7) L 09/20/18 04:11 - Microbiology Findings Microbiology Findings: Microbiology, Last 48 Hours 09/20/18 06:19 Blood Culture - Preliminary Peripheral Venipuncture Culture is incubating and being continuously monitored for growth. Final report to follow. 09/20/18 06:19 Blood Culture - Preliminary Peripheral Venipuncture Culture is incubating and being continuously monitored for growth. Final report to follow. - Clinical Findings Intake & Output: Intake & Output 09/19/18 09/20/18 09/20/18 23:59 07:59 15:59 Intake Total 1000 / 1000 1010 / 1010 Balance 1000 / 1000 1010 / 1010 Weight 121.155 kg
[2018-09-20] MEDS: *HR* Heparin 5,000 UNIT/ML VIAL SQ SCH (16:52)
[2018-09-20] MEDS: Insulin DETEMIR 100 UNIT/ML X5UNITS SQ SCH (21:35)
[2018-09-21] MEDS: traZODone 50 MG TABLET PO SCH ×2 (04:59→21:16)
[2018-09-21] MEDS: 0.9 % Sodium Chloride 1,000 ML IVC SCH ×2 (05:09→13:39)
[2018-09-21] MEDS: *HR* Heparin 5,000 UNIT/ML VIAL SQ SCH ×2 (05:10→17:35)
[2018-09-21 05:20] LABS: Basophils % 0.3 %; Eosinophils # 0.1 K/mcL (0.0-0.6); Eosinophils % 1.5 %; Hematocrit 21.6 % (37.5-50.1); Hemoglobin 7.5 g/dL (12.9-16.9); Immature Granulocytes % 0.3 % (0-4); Lymphocytes # 1.3 K/mcL (0.6-4.6); Lymphocytes % 33.2 %; Mean Corpuscular HGB Conc 34.7 g/dL (31.6-35.5); Mean Corpuscular Hemoglobin 36.1 pg (28.0-33.3); Mean Corpuscular Volume 103.8 fL (83.0-100.0); Mean Platelet Volume 8.9 fL (9.4-12.4); Monocytes # 0.3 K/mcL (0.0-1.3); Monocytes % 6.3 %; Neutrophils # 2.3 K/mcL (1.6-8.9); Platelet Count 191 K/mcL (140-400); Red Blood Count 2.08 M/mcL (4.19-5.50); Red Cell Distribution Width 14.1 % (11.5-14.5); Segmented Neutrophils % 58.4 %
[2018-09-21 05:41] LABS: BUN/Creatinine Ratio 10 (6-26); Blood Urea Nitrogen 12 mg/dL (8-23); Carbon Dioxide 23 mEq/L (23-29); Chloride 100 mEq/L (98-107); Glucose 78 mg/dL (70-105); Magnesium 1.9 mg/dL (1.6-2.6); Osmolality,Calculated 269 (280-300); Phosphorous 2.3 mg/dL (2.7-4.5); Sodium 130 mEq/L (136-145); eGFR For Non-African Americans > 60 (> 60)
[2018-09-21] MEDS: Insulin LISPRO 300 UNITS/3 ML VIAL SQ SCH ×3 (09:03→17:36)
[2018-09-21] MEDS: Aspirin Enteric Coated 81 MG Tablet PO SCH (09:06)
[2018-09-21] MEDS: cefTRIAXone 1,000 MG in Water for inj. (sterile) 20 ML 10 ML IVP SCH (09:06)
[2018-09-21] MEDS: Acetaminophen 325 MG TABLET PO PRN ×2 (09:06→17:35)
[2018-09-21] MEDS ORDERED: Gadolinium Contrast Agent (WT Based) IV PRN (12:33)
[2018-09-21] MEDS: Gabapentin 300 MG CAPSULE PO SCH (13:41)
[2018-09-21] MEDS: Loratadine 10 MG TABLET PO SCH (13:41)
--- NOTE | 2018-09-21 16:16 | Internal Med Progress Note ---
Hospitalist Progress Note - Encounter Date of Encounter: 09/21/18 Time of Encounter: 10:20 - Subjective Interval History: Patient sitting up in chair. Comfortable. Reports that he is feeling better overall. He is concerned that his been having recurrent episodes of falls since September of last year and has not had it evaluated. He was admitted to the hospital in April and was discharged after a syncopal episode. During that time, he was also found to be hyponatremic. His syncopal episode was attributed to that. However he has continued to have he denies any blurred vision. No focal weakness or numbness. Patient has been using a wheelchair although no clear cause of his weakness has been diagnosed. - Exam Vitals: Temp Pulse Resp BP Pulse Ox 97.6 F 75 20 120/58 100 09/21/18 12:00 09/21/18 12:00 09/21/18 12:00 09/21/18 12:00 09/21/18 12:00 Exam: General: Patient is alert, no acute distress, oriented x 3 ENT: Mucous membranes moist Respiratory: Good respiratory effort. Normal breath sounds. No wheezing or crackles. Cardiovascular: Regular rate and rhythm. s1 and s2 normal No clicks, rubs, gallops, or murmurs. No pedal edema Abdomen: Abdomen is soft, nontender. Bowel sounds are present Musculoskeletal: Spontaneously moving all extremities Skin: warm, dry, intact. Neuro: Alert oriented x 3 normal cranial nerves, no focal deficits, normal strength in all extremities. - Assessment and Plan (1) Acute metabolic encephalopathy Current Visit: Yes Status: Acute Assessment and Plan: Due to hyponatremia. Improved. (2) Hyponatremia Current Visit: Yes Status: Acute Assessment and Plan: Sodium 130. Improved. Most likely patient's hyponatremia is due to use of chlorthalidone at home. Stopped this medication. Continue to monitor his serum sodium levels. We will stop IV hydration. (3) ROMMEL (acute kidney injury) Current Visit: Yes Status: Acute Assessment and Plan: Acute kidney injury has resolved (4) Hypotension Current Visit: Yes Status: Resolved Assessment and Plan: Blood pressure has improved. Most likely due to volume depletion. We will continue to monitor closely (5) Hypokalemia Current Visit: Yes Status: Chronic Assessment and Plan: Likely due to use of chlorthalidone. Improved (6) DVT prophylaxis Current Visit: Yes Status: Acute Assessment and Plan: On subcutaneous heparin (7) Generalized weakness Current Visit: Yes Status: Acute Assessment and Plan: Patient reports generalized weakness to the point where he is using wheelchair. Has been going on for one year. We will obtain MRI of the head and cervical spine to evaluate further for any demyelinating illness. We will need follow-up with urology for further evaluation. PTOT evaluation completed and the recommended home health. However patient is not interested in this. (8) Severe protein-calorie malnutrition Current Visit: Yes Status: Chronic Assessment and Plan: Patient reported greater than 10% weight loss over the past 6 months. Nutrition following. - Time Spent with Patient Total time spent is greater than 50% in coordination of care (as documented) at patient's floor/unit and/or counseling patient: Internal Medicine: Result - Labs CBC & Chem 7: 09/21/18 04:42 09/21/18 04:42 Labs: Short CBC 09/21/18 Range/Units 04:42 WBC 4.0 L D (4.3-11.1) K/mcL Hgb 7.5 L (12.9-16.9) g/dL Hct 21.6 L (37.5-50.1) % Plt Count 191 (140-400) K/mcL Neutrophils # 2.3 (1.6-8.9) K/mcL BMP 09/21/18 04:42 Sodium 130 L Potassium 4.0 Chloride 100 Carbon Dioxide 23 BUN 12 Creatinine 1.15 Glucose 78 Calcium 8.0 L - Impressions Impressions Abdomen/Pelvis CT 09/20/18 07:37 IMPRESSION: 1. No acute abdominal or pelvic abnormality. Unremarkable appearance of the adrenal glands without contrast. 2. Aortoiliac atherosclerotic calcifications. D/ / 09/20/2018 09:31:20 Mj Kirkpatrick MD / Cass Traylor Interpreting Provider: Mj Kirkpatrick MD Consult Discharge Plan - Plan Referrals: NONE,PCP [Primary Care Provider] - (4) Hypotension Qualifiers: Hypotension type: idiopathic hypotension Qualified Code(s): I95.0 - Idiopath ic hypotension
[2018-09-21] MEDS ORDERED: 0.9 % Sodium Chloride 500 ML IVC ONE (20:58)
[2018-09-21] MEDS ORDERED: [UNRECOGNIZED DRUG - OTHER] PO SCH (21:00)
[2018-09-21] MEDS ORDERED: ATENOLOL PO SCH (21:00)
[2018-09-21] MEDS: Gabapentin 400 MG CAPSULE PO SCH ×2 (21:16→21:22)
[2018-09-21] MEDS: Insulin DETEMIR 100 UNIT/ML X5UNITS SQ SCH (21:28)
[2018-09-22] MEDS ORDERED: Melatonin 3 MG TABLET PO ONE (01:03)
[2018-09-22] MEDS: *HR* Heparin 5,000 UNIT/ML VIAL SQ SCH (03:56)
[2018-09-22 05:35] LABS: Basophils % 0.3 %; Eosinophils # 0.1 K/mcL (0.0-0.6); Eosinophils % 1.8 %; Hematocrit 23.9 % (37.5-50.1); Hemoglobin 8.1 g/dL (12.9-16.9); Immature Granulocytes % 0.3 % (0-4); Lymphocytes # 1.8 K/mcL (0.6-4.6); Lymphocytes % 29.4 %; Mean Corpuscular HGB Conc 33.9 g/dL (31.6-35.5); Mean Corpuscular Hemoglobin 36.2 pg (28.0-33.3); Mean Corpuscular Volume 106.7 fL (83.0-100.0); Mean Platelet Volume 8.6 fL (9.4-12.4); Monocytes # 0.4 K/mcL (0.0-1.3); Monocytes % 6.9 %; Neutrophils # 3.8 K/mcL (1.6-8.9); Platelet Count 209 K/mcL (140-400); Red Blood Count 2.24 M/mcL (4.19-5.50); Red Cell Distribution Width 14.5 % (11.5-14.5); Segmented Neutrophils % 61.3 %
[2018-09-22 05:56] LABS: BUN/Creatinine Ratio 11 (6-26); Blood Urea Nitrogen 10 mg/dL (8-23); Calcium 8.3 mg/dL (8.6-10.3); Carbon Dioxide 25 mEq/L (23-29); Chloride 99 mEq/L (98-107); Glucose 75 mg/dL (70-105); Osmolality,Calculated 266 (280-300); Sodium 129 mEq/L (136-145); eGFR For Non-African Americans > 60 (> 60)
[2018-09-22] MEDS ORDERED: Furosemide 20 MG TABLET PO SCH (09:00)
[2018-09-22] MEDS: Acetaminophen 325 MG TABLET PO PRN (10:47)
[2018-09-22] MEDS: Gabapentin 300 MG CAPSULE PO SCH (10:47)
[2018-09-22] MEDS: Aspirin Enteric Coated 81 MG Tablet PO SCH (10:47)
[2018-09-22] MEDS: Loratadine 10 MG TABLET PO SCH (10:48)
[2018-09-22] MEDS: cefTRIAXone 1,000 MG in Water for inj. (sterile) 20 ML 10 ML IVP SCH (10:48)
[2018-09-22] MEDS: Insulin LISPRO 300 UNITS/3 ML VIAL SQ SCH (10:52)
[2018-09-22 11:22] VITALS: BP 87/50
--- NOTE | 2018-09-22 13:22 | Discharge Summary ---
- NOTES TO OUTPATIENT PROVIDER Notes to Outpatient Provider: Patient with a history of coronary artery disease hypertension, hyperlipidemia, COPD, diabetes was hospitalized here with hypotension and hyponatremia. This is believed to be due to dehydration and use of chlorthalidone for hypertension. Patient also had acute kidney injury on presentation and acute metabolic encephalopathy. With IV hydration and his symptoms improved. His renal function has normalized. His sodium levels have also improved. She does have chronic hyponatremia and has been on salt tablets. Would also recommend holding chlorthalidone. We also recommend decreasing his atenolol dosage to 25 mg twice daily. Patient reportedly has been getting weak er over the past year. He also complained of cervical pain. As such MRI of the head and cervical spine was done. No acute infarct was identified. Patient did not have any demyelinating changes. He did have degenerative thecal sac narrowing and neural foraminal stenosis from C3-C4 to C6-C7. He is recommended outpatient follow-up with spine surgery for this. He was evaluated for home oxygen and qualified for 2 L O2 supplementation via nasal cannula. This will be arranged for him prior to discharge. Orders not resulted at time of discharge: Pending orders 09/20/18 06:19 Culture,Blood [BC] Stat 09/20/18 09:39 ACTH Stat Date of Encounter: 09/22/18 Time of Encounter: 13:31 - Discharge Diagnosis (1) Acute metabolic encephalopathy Priority: Primary Status: Acute (2) Hyponatremia Priority: Secondary Status: Acute (3) ROMMEL (acute kidney injury) Priority: Secondary Status: Acute (4) Hypotension Priority: Secondary Status: Resolved Qualifiers: Hypotension type: idiopathic hypotension Qualified Code(s): I95.0 - Idiopathic hypotension (5) Hypokalemia Priority: Secondary Status: Chronic (6) Generalized weakness Priority: Secondary Status: Acute (7) DVT prophylaxis Priority: Secondary Status: Acute (8) Severe protein-calorie malnutrition Priority: Secondary Status: Chronic Hospital course: Mr. Toure is a 62 year old male Patient with a history of coronary artery disease hypertension, hyperlipidemia, COPD, diabetes was hospitalized here with hypo tension and hyponatremia. This is believed to be due to dehydration and use of diuretics. Patient also had acute kidney injury on presentation and acute metabolic encephalopathy. With IV hydration and his symptoms improved. His renal function has normalized. His sodium levels have also improved. She does have chronic hyponatremia and has been on salt tablets. Would also recommend holding chlorthalidone. We also recommend decreasing his atenolol dosage to 25 mg twice daily. Patient reportedly has been getting weaker over the past year. He also complained of cervical pain. As such MRI of the head and cervical spine was done. No acute infarct was identified. Patient did not have any demyelinating changes. He did have degenerative thecal sac narrowing and neural foraminal stenosis from C3-C4 to C6-C7. He is recommended outpatient follow-up with spine surgery for this. He was evaluated for home oxygen and qualified for 2 L O2 supplementation via nasal cannula. This will be arranged for him prior to discharge. Patient was evaluated for adrenal insufficiency but had normal response to ACTH stim test. Discharge discussed with: patient, case management, [employer] payroll consultant - Time Spent with Patient Total time spent providing and/or coordinating discharge services: Greater than 30 minutes (35 min) - Discharge Medications Prescriptions: Atenolol [Tenormin] 25 mg PO BID #30 tablet Home Medications: Aspirin Enteric Coated [Aspirin EC] 81 mg PO DAILY 04/19/18 [History] Cetirizine HCl [All Day Allergy] 10 mg PO DAILY 04/19/18 [History] Citalopram Hydrobromide [Citalopram HBr] 40 mg PO HS 04/19/18 [History] Clorazepate Dipotassium 15 mg PO BID 04/19/18 [History] Insulin ASPART [NovoLOG] 0 unit SQ TIDWM 04/19/18 [History] Insulin Glargine,Hum.rec.anlog [Lantus Solostar] 10 unit SQ HS 04/19/18 [History] Isosorbide DInitrate [Isosorbide Dinitrate] 20 mg PO 0800,1800 04/19/18 [History] Nitroglycerin [Nitrostat] 0.4 mg SL Q5MIN PRN 04/19/18 [History] traZODone [TraZODone] 50 mg PO HS 04/19/18 [History] Aspirin [Ecotrin] 325 mg PO HS 09/20/18 [History] Docusate [Colace] 100 mg PO DAILY PRN 09/20/18 [History] Furosemide [Lasix] 20 mg PO DAILY 09/20/18 [History] Gabapentin [Neurontin] 1,200 mg PO HS 09/20/18 [History] Gabapentin [Neurontin] 600 mg PO DAILY 09/20/18 [History] Potassium Chloride [Klor-Con 10] 10 meq PO BIDWM 09/20/18 [History] Atenolol [Tenormin] 25 mg PO BID #30 tablet 09/22/18 [Rx] Allergies/Adverse Reactions: Allergy/AdvReac Type Severity Reaction Status Date / Time Penicillins [PCN] Allergy See Verified 04/19/18 18:24 Comments Date of admission: 09/20/18 07:44 Primary care physician: PCP NONE Consults: 09/20/18 08:28 Consult to Pulmonology [CONS] Routine Consulting Provider: [facility] [place] Reason for Consult: persistent hypotension Call Completed: Yes 09/20/18 09:21 Consult to Physical Therapy [CONS] Routine Comment: Evaluate, develop and implement POC Reason for Consult: weakness Does patient have active BEDREST order?: No Is patient medically & hemodynamically stable?: Yes Patient assessed for mobility or mobilized this visit?: No 09/20/18 10:46 Consult to Nutrition [CONS] Routine Comment: Consulting Provider: NUTRITION Reason for Dietary Consult: Other Consult to Pastoral Services [CONS] Routine Comment: 09/20/18 12:12 Consult to Psychology [CONS] Routine Consulting Provider: Nellie Garg Reason for Consult: History of PTSD, anxiety, and depression. Off meds. Call Completed: No 09/21/18 07:33 Consult to Occupational Therapy [CONS] Routine Comment: Evaluate, develop and implement POC Reason for Consult: eval for poss ecf Does patient have active BEDREST order?: No Is patient medically & hemodynamically stable?: Yes Discharging clinician: Barrie Ragland Anticipated date of discharge: 09/22/18 - Constitutional Vitals: Temp Pulse Resp BP Pulse Ox 97.9 F 68 18 87/50 98 09/22/18 11:16 09/22/18 11:16 09/22/18 11:16 09/22/18 11:16 09/22/18 11:16 BP Recheck 96/60. General appearance: Present: no acute distress, obese Exam: . - Respiratory Respiratory exam: Present: prolonged expiratory phase. Absent: accessory muscle use, rales, rhonchi, wheezes - Cardiovascular Cardiovascular exam: Present: RRR, +S1, +S2. Absent: diastolic murmur, gallop, rubs, systolic murmur - GI/Abdominal GI/Abdominal exam: Present: normal bowel sounds, soft, no peritoneal signs. Absent: distended, tenderness - Extremities Exam Extremities exam: Present: warm, radial pulses palpable and symmetrical. Absent: calf tenderness, cyanotic, pedal edema - Neurological Exam Neurological exam: Present: alert, oriented X3, no focal deficits. Absent: facial droop, speech deficit - Patient Status Disposition: Home, Self-Care Condition: Good Functional capacity at discharge: independent ambulation - Discharge Instructions Instructions: Atenolol (By mouth), Using Oxygen at Home (DC), Chronic Obstructive Pulmonary Disease (DC) Follow Up With: [facility] [Outside] - 10/04/18 3:00 pm (with Dr. Richard) Forms: ED Satisfaction Letter - Diet and Activity Activity: wear oxygen at all times Diet: diabetic diet, low fat, low cholesterol
== END 2018-09-22 17:41 | disposition home or self-care (01) | DRG 682 ==
LOC: EMEROOARM 03:16 → 2SOUTHHOLD 03:16 → SUATTDRO 07:44 → 2SOUTHHOLD 08:24 → 2ANU 16:38
PROVIDERS: ADMIT Internal Medicine; ATTEND Internal Medicine

== ENCOUNTER 2019-05-05 00:23 | Inpatient (IN) ==
[2019-05-05 01:35] LABS: Basophils # 0.1 K/mcL (0.0-0.2); Basophils % 0.5 %; Eosinophils # 0.3 K/mcL (0.0-0.6); Eosinophils % 2.6 %; Hematocrit 35.3 % (37.5-50.1); Hemoglobin 11.5 g/dL (12.9-16.9); Immature Granulocytes % 0.2 % (0-4); Lymphocytes # 2.2 K/mcL (0.6-4.6); Lymphocytes % 18.1 %; Mean Corpuscular HGB Conc 32.6 g/dL (31.6-35.5); Mean Corpuscular Hemoglobin 29.3 pg (28.0-33.3); Mean Corpuscular Volume 90.1 fL (83.0-100.0); Mean Platelet Volume 10.4 fL (9.4-12.4); Monocytes # 0.7 K/mcL (0.0-1.3); Monocytes % 5.9 %; Neutrophils # 8.8 K/mcL (1.6-8.9); Platelet Count 544 K/mcL (140-400); Red Blood Count 3.92 M/mcL (4.19-5.50); Red Cell Distribution Width 15.3 % (11.5-14.5); Segmented Neutrophils % 72.7 %; White Blood Count 12.1 K/mcL (4.3-11.1)
[2019-05-05 01:43] LABS: Alanine Aminotransferase 27 Units/L (7-52); Albumin 3.4 g/dL (3.5-5.7); Albumin/Globulin Ratio 0.8 (1.1-2.2); Alkaline Phosphatase 199 Units/L (34-104); Aspartate Amino Transferase 23 Units/L (13-39); BUN/Creatinine Ratio 18 (6-26); Bilirubin,Total 0.4 mg/dL (0.3-1.0); Blood Urea Nitrogen 11 mg/dL (8-23); Calcium 9.2 mg/dL (8.6-10.3); Carbon Dioxide 29 mEq/L (23-29); Chloride 92 mEq/L (98-107); Creatine Kinase 54 Units/L (30-223); Globulin 4.4 g/dL (2.4-3.5); Glucose 174 mg/dL (70-105); Osmolality,Calculated 270 (280-300); Potassium 3.7 mEq/L (3.5-5.1); Sodium 128 mEq/L (136-145); Total Protein 7.8 g/dL (6.4-8.9); eGFR For African Americans > 60 (> 60); eGFR For Non-African Americans > 60 (> 60)
--- NOTE | 2019-05-05 05:09 | Emergency Department Note ---
Disposition Clinical Impression: Weakness Pneumonia Qualifiers: Pneumonia type: due to unspecified organism Laterality: unspecified laterality Lung location: unspecified part of lung Qualified Code(s): J18.9 - Pneumonia, unspecified organism Disposition: Admitted As Inpatient Condition: Good Referrals: NONE,PCP [Primary Care Provider] - Forms: ED Satisfaction Letter, Work/School Release Time of Disposition: 06:51 General Adult HPI - General Chief complaint: ED General Medical Stated complaint: poss pneumonia Time Seen by Provider: 05/05/19 00:38 Source: patient, EMS Nursing Notes Reviewed: Yes Vital Signs Reviewed: Yes - History of Present Illness HPI Narrative: Patient is a 63-year-old male presents with complaint of generalized worsening pain, and concern for pneumonia. He is coming by his who assist with history. Patient has had a prolonged stay in extending care facilities over the past 3 months. Apparently he had been evaluated at [facility] over the past summer, and he was noted to have a splenic hematoma, pancreatitis, and abnormal liver functions tests. Family describes him having a cholecystectomy as well. Apparently he has been seen at [facility], then [facility], and then [facility] [place] Patient was described that they were leaving [facility] today, he had fallen in the parking lot was unable to walk on his own. Family describes him as needed to be transferred with [facility] and that he had not received any physical therapy or gotten out of bed much during his ECF states. He also concerned for possible ulcers or sores on his tailbone patient does describe a cough, no worse today. He uses a sunshine catheter. He does have a feeding tube which he mentions was placed because of d ecreased appetite and weight loss. He denies any intestinal surgeries.. He describes weakness denies any fevers. He denies any abdominal pain. Pain Scale: 0 - Related Data Home Medications Medication Instructions Recorded Confirmed Aspirin Enteric Coated [Aspirin EC] 81 mg PO DAILY 04/19/18 11/24/18 Cetirizine HCl [All Day Allergy] 10 mg PO DAILY 04/19/18 11/24/18 Citalopram Hydrobromide 40 mg PO HS 04/19/18 11/24/18 [Citalopram HBr] Clorazepate Dipotassium 15 mg PO BID 04/19/18 11/24/18 Insulin ASPART [NovoLOG] 0 unit SQ TIDWM 04/19/18 11/24/18 Insulin Glargine,Hum.rec.anlog 10 unit SQ HS 04/19/18 11/24/18 [Lantus Solostar] traZODone [TraZODone] 50 mg PO HS 04/19/18 11/24/18 Aspirin [Ecotrin] 325 mg PO HS 09/20/18 11/24/18 Docusate [Colace] 100 mg PO DAILY PRN 09/20/18 11/24/18 Furosemide [Lasix] 20 mg PO DAILY PRN 09/20/18 11/24/18 Gabapentin [Neurontin] 1,200 mg PO HS 09/20/18 11/24/18 Gabapentin [Neurontin] 600 mg PO QAM 09/20/18 11/24/18 Previous Rx's Medication Instructions Recorded Ondansetron ODT [Zofran ODT] 4 mg SL Q6HR PRN #8 tab.rapdis 10/27/18 Atenolol [Tenormin] 25 mg PO BID tablet 11/26/18 Budesonide/Formoterol 160/4.5 2 puff IH BIDR #1 inh 11/26/18 [Symbicort 160/4.5] Isosorbide DInitrate [Isordil] 20 mg PO 0800,1800 tablet 11/26/18 Omeprazole [PriLOSEC] 20 mg PO DAILY #30 cap 11/26/18 Lidocaine Patch [Lidoderm 5% patch] 1 each TP DAILY PRN #10 adh..patch 01/05/19 Allergies Allergy/AdvReac Type Severity Reaction Status Date / Time Penicillins [PCN] Allergy See Verified 10/26/18 23:51 Comments All systems ED: reviewed and negative except as stated. Review of Systems: As Per HPI Constitutional: Reports: as per HPI Eyes: Denies: eye discharge ENT ED: Denies: throat pain Cardiovascular: Denies: chest pain, palpitations Respiratory: Reports: as per HPI. Denies: dyspnea Gastrointestinal: Reports: as per HPI. Denies: abdominal pain, nausea, vomiting Genitourinary: Denies: dysuria Musculoskeletal: Reports: as per HPI Integumentary: Denies: rash Neurological: Denies: headache Allergic/Immunologic: Denies: facial swelling Past Medical History - Past Medical History Medical history: Reports: COPD, CVA, diabetes, hyperlipidemia, hypertension, myocardial infarction, other Surgical history: Reports: tonsillectomy Psychiatric history: Reports: anxiety, depression, PTSD - Social History Smoking Status: Current every day smoker Smokeless Tobacco Status: No Alcohol use: Reports: occasionally Drug use: Reports: none Physical Exam - General Limitations: other (memory issues) General appearance: alert, in no apparent distress - Head Head exam: atraumatic - Eye Eye exam: Present: EOMI - ENT ENT exam: normal oropharynx - Neck Neck exam: Present: full ROM - Chest Chest inspection: Present: normal inspection, symmetric chest wall rise - Respiratory Respiratory exam: Absent: respiratory distress - Expanded Respiratory Exam Location: rhonchi: Left, Right - Cardiovascular Cardiovascular exam: Present: regular rate - Abdominal Exam Abdominal exam: Present: soft, scar, other (feeding tube). Absent: tenderness - Rectal Exam Cash Management Clerk present during exam: Yes Rectal exam: Present: other (Nonblanching erythema along the [place] buttocks; small approximately 1-2 cm linear open area just above the gluteal cleft, does not appear to be ulcerated, drainage or discharge). Absent: fecal impaction, hemorrhoids - Extremities Exam Extremities exam: Present: normal inspection. Absent: pedal edema - Back Exam Back exam: Present: full ROM - Neurological Exam Neurological exam: Present: alert - Psychiatric Psychiatric exam: Present: normal affect, normal mood - Skin Skin exam: Present: warm, dry, intact, normal color Course Course Narrative: Patient is a 63-year-old male presents with complaint of generalized worsening pain, and concern for pneumonia. He is coming by his who assist with history. Patient has had a prolonged stay in [facility] care facilities over the past 3 months. Apparently he had been evaluated at [facility] over the past summer, and he was noted to have a splenic hematoma, pancreatitis, and abnormal liver functions tests. Family describes him having a cholecystectomy as well. Apparently he has been seen at [facility], then transferred to [facility], and then the [facility] [place]. Patient was described that they were leaving [facility] today, he had fallen in the parking lot was unable to walk on his own. Family describes him as needed to be transferred with [facility] and that he had not received any physical therapy or gotten out of bed much during his ECF states. He also concerned for possible ulcers or sores on his tailbone patient does describe a cough, no worse today. He does have a feeding tube which he mentions was placed because of decreased appetite and weight loss. He denies any intestinal surgeries.. He describes weakness denies any fevers. He denies any abdominal pain. On examination patient is alert. He appears chronically ill but in no acute distress. Nasal cannula in place. Lung sounds mild rhonchi. Abdominal exam shows surgical scar 2. Parents are extremities no edema. Nonblanching erythema over his buttocks and coccyx, likely stage I decub. No concerning signs for cellulitis. His vitals are within normal limits. Discussion with patient and family. They are concern that his health is not adequate to go home. They are concerned that he may have pneumonia. Workup initiated. - Reevaluation(s) Reevaluation #1: Review chest x-ray shows medial basal opacities artifact versus atelectasis aspiration or pneumonia. I ordered a chest CT for further imaging. Time: 03:00 Reevaluation #2: Chest CT reviewed. I discussed findings with Dr. Huynh he also decreased patient. CAT scan. Increased volume of bilateral pleural effusions, as well as a nodular opacity in the right upper lobe and dependent secretions along central airways. Concerning for infectious process and related aspiration. Does appear to be a resolving hematoma and decreased. Splenic and perihepatic ascites as well as some fluid along the gallbladder fossa. Patient does have a slightly elevated white count 12.1. Hemoglobin 11.5. Normal lactic acid. Patient had originally declined analgesics but was requesting some and this has been ordered. Discussion with Dr. Huynh, patient would benefit from admission for further evaluation and treatment for possible aspiration pneumonia. Additionally patie nt is chronically ill, weak, unable to ambulate. There is a apparent concern to that he does not have good follow-up care as he was unable to get established with his primary care provider earlier in the day. He may benefit from a social consult as well. Time: 05:30 Reevaluation #3: Patient was discussed with Dr. Chavez who agreed to accept patient and requested from calcitonin. Time: 06:50 Vital Signs Temperature 98.7 F 05/05/19 00:29 Pulse Rate 60 05/05/19 00:29 Respiratory Rate 16 05/05/19 00:29 Blood Pressure 125/50 05/05/19 00:29 O2 Sat by Pulse Oximetry 98 05/05/19 00:29 Temperature 98.3 F 05/05/19 06:23 Pulse Rate 64 05/05/19 06:23 Respiratory Rate 17 05/05/19 06:23 Blood Pressure 129/64 05/05/19 06:23 O2 Sat by Pulse Oximetry 97 05/05/19 06:58 Oxygen Delivery Oxygen Delivery Room Air Medical Decision Making - MDM Narrative Medical decision making narrative: Chest X-Ray 05/05/19 01:55 IMPRESSION: Medial basal opacities could reflect summation artifact versus atelectasis, aspiration or pneumonia. D/ / Leonard Grhaam / Leonard Graham Interpreting Provider: Leonard Graham Chest CT 05/05/19 04:40 IMPRESSION: New right upper lobe clustered nodularity, presumably infectious or inflammatory and possibly related aspiration sequela given dependent tracheobronchial secretions. Increased volume of bilateral pleural effusions. Limited evaluation of the upper abdomen demonstrates questionable postsurgical changes of cholecystectomy (given new surgical clip in this area)-if so, a collection is present along the gallbladder fossa which could represent a biloma given new adjacent low attenuation of the hepatic parenchyma along the gallbladder fossa. Nuclear medicine HIDA scan could clarify if needed. Resolving subcapsular splenic hematoma. D/ / Leonard Graham / Leonard Graham Interpreting Provider: Leonard Graham Laboratory Tests 05/05/19 05/05/19 05/05/19 01:05 01:05 01:05 WBC 12.1 H RBC 3.92 L Hgb 11.5 L Hct 35.3 L MCV 90.1 MCH 29.3 MCHC 32.6 RDW 15.3 H Plt Count 544 H MPV 10.4 Immature Gran % 0.2 Seg Neutrophils % 72.7 Lymphocytes % 18.1 Monocytes % 5.9 Eosinophils % 2.6 Basophils % 0.5 Neutrophils # 8.8 Lymphocytes # 2.2 Monocytes # 0.7 Eosinophils # 0.3 Basophils # 0.1 Sodium 128 L Potassium 3.7 Chloride 92 L Carbon Dioxide 29 BUN 11 Creatinine 0.62 L Est GFR ( Amer) > 60 Est GFR (Non-Af Amer) > 60 BUN/Creatinine Ratio 18 Glucose 174 H Calculated Osmolality 270 L Lactic Acid Calcium 9.2 Total Bilirubin 0.4 AST 23 ALT 27 Alkaline Phosphatase 199 H Creatine Kinase 54 Troponin I < 0.03 Serum Total Protein 7.8 Albumin 3.4 L Globulin 4.4 H Albumin/Globulin Ratio 0.8 L 05/05/19 01:19 WBC RBC Hgb Hct MCV MCH MCHC RDW Plt Count MPV Immature Gran % Seg Neutrophils % Lymphocytes % Monocytes % Eosinophils % Basophils % Neutrophils # Lymphocytes # Monocytes # Eosinophils # Basophils # Sodium Potassium Chloride Carbon Dioxide BUN Creatinine Est GFR ( Amer) Est GFR (Non-Af Amer) BUN/Creatinine Ratio Glucose Calculated Osmolality Lactic Acid 1.1 Calcium Total Bilirubin AST ALT Alkaline Phosphatase Creatine Kinase Troponin I Serum Total Protein Albumin Globulin Albumin/Globulin Ratio - Lab Data Lab results reviewed: Yes I reviewed the patient's lab results. Result diagrams: 05/05/19 01:05 05/05/19 01:05 Lab Results 05/05/19 05/05/19 05/05/19 Range/Units 01:05 01:05 01:05 WBC 12.1 H (4.3-11.1) K/mcL RBC 3.92 L (4.19-5.50) M/mcL Hgb 11.5 L (12.9-16.9) g/dL Hct 35.3 L (37.5-50.1) % MCV 90.1 (83.0-100.0) fL MCH 29.3 (28.0-33.3) pg MCHC 32.6 (31.6-35.5) g/dL RDW 15.3 H (11.5-14.5) % Plt Count 544 H (140-400) K/mcL MPV 10.4 (9.4-12.4) fL Immature Gran % 0.2 (0-4) % Seg Neutrophils % 72.7 % Lymphocytes % 18.1 % Monocytes % 5.9 % Eosinophils % 2.6 % Basophils % 0.5 % Neutrophils # 8.8 (1.6-8.9) K/mcL Lymphocytes # 2.2 (0.6-4.6) K/mcL Monocytes # 0.7 (0.0-1.3) K/mcL Eosinophils # 0.3 (0.0-0.6) K/mcL Basophils # 0.1 (0.0-0.2) K/mcL Sodium 128 L (136-145) mEq/L Potassium 3.7 (3.5-5.1) mEq/L Chloride 92 L (98-107) mEq/L Carbon Dioxide 29 (23-29) mEq/L BUN 11 (8-23) mg/dL Creatinine 0.62 L (0.70-1.30) mg/dL Est GFR ( Amer) > 60 (> 60) Est GFR (Non-Af Amer) > 60 (> 60) BUN/Creatinine Ratio 18 (6-26) Glucose 174 H (70-105) mg/dL Calculated Osmolality 270 L (280-300) Lactic Acid (0.5-2.2) mmol/L Calcium 9.2 (8.6-10.3) mg/dL Total Bilirubin 0.4 (0.3-1.0) mg/dL AST 23 (13-39) Units/L ALT 27 (7-52) Units/L Alkaline Phosphatase 199 H (34-104) Units/L Creatine Kinase 54 (30-223) Units/L Troponin I < 0.03 (< 0.04) ng/mL Serum Total Protein 7.8 (6.4-8.9) g/dL Albumin 3.4 L (3.5-5.7) g/dL Globulin 4.4 H (2.4-3.5) g/dL Albumin/Globulin Ratio 0.8 L (1.1-2.2) 05/05/19 Range/Units 01:19 WBC (4.3-11.1) K/mcL RBC (4.19-5.50) M/mcL Hgb (12.9-16.9) g/dL Hct (37.5-50.1) % MCV (83.0-100.0) fL MCH (28.0-33.3) pg MCHC (31.6-35.5) g/dL RDW (11.5-14.5) % Plt Count (140-400) K/mcL MPV (9.4-12.4) fL Immature Gran % (0-4) % Seg Neutrophils % % Lymphocytes % % Monocytes % % Eosinophils % % Basophils % % Neutrophils # (1.6-8.9) K/mcL Lymphocytes # (0.6-4.6) K/mcL Monocytes # (0.0-1.3) K/mcL Eosinophils # (0.0-0.6) K/mcL Basophils # (0.0-0.2) K/mcL Sodium (136-145) mEq/L Potassium (3.5-5.1) mEq/L Chloride (98-107) mEq/L Carbon Dioxide (23-29) mEq/L BUN (8-23) mg/dL Creatinine (0.70-1.30) mg/dL Est GFR ( Amer) (> 60) Est GFR (Non-Af Amer) (> 60) BUN/Creatinine Ratio (6-26) Glucose (70-105) mg/dL Calculated Osmolality (280-300) Lactic Acid 1.1 (0.5-2.2) mmol/L Calcium (8.6-10.3) mg/dL Total Bilirubin (0.3-1.0) mg/dL AST (13-39) Units/L ALT (7-52) Units/L Alkaline Phosphatase (34-104) Units/L Creatine Kinase (30-223) Units/L Troponin I (< 0.04) ng/mL Serum Total Protein (6.4-8.9) g/dL Albumin (3.5-5.7) g/dL Globulin (2.4-3.5) g/dL Albumin/Globulin Ratio (1.1-2.2) - Radiology Data Radiology results reviewed: Yes I reviewed the patient's radiology results. Attestation Statement - Attestation Attestation: For this encounter, I have reviewed the ENGINEERING DESIGNER or PA documentation, treatment plan, and medical decision making; and I have had face to face time with this patient. Assessment and plan this patient. Patient will be admitted for treatment of pneumonia. Patient was started on antibiotics and blood cultures were obtained. I agree with nurse practitioner's assessment and plan disposition of this patient.
[2019-05-05] MEDS ORDERED: 0.9 % Sodium Chloride 1,000 ML IVC ONE (06:34)
[2019-05-05] MEDS ORDERED: Vancomycin (wt based) 1,000 MG VIAL IVPB ONE (06:41)
[2019-05-05] MEDS ORDERED: Aztreonam 2,000 MG in Water for inj. (sterile) 20 ML IVP ONE (06:41)
[2019-05-05] MEDS ORDERED: levoFLOXacin 750 MG/150 ML 750 MG/150 ML BAG IVPB ONE (06:41)
--- NOTE | 2019-05-05 08:55 | Internal Med History&Physical ---
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 Toure is a 63 year old male with past medical history of COPD, diabetes, CVA, hypertension, CAD who is been wheelchair-bound for 4 years for lower extremity weakness with unclear etiology probably from previous injuries was recently transferred to [facility] from here due to splenic hematoma and has been at rehabilitation for almost 3 months. He comes in today with complaint of intractable pain and concern for pneumonia as per the ED chart. Patient was discharged from [facility] last week. He reportedly fell while he was trying to go his doctor's appointment the same day. Because of the fall he could not make it and was told to find a different doctor. So he is being without it for week and without his pain medication which has been taking for almost 20 years. Because of his intractable pain and some concern of pneumonia reported to ER he came to the hospital. Denies any fevers, chills, chest pain or difficulty breathing. Patient reportedly he had splenic repair, gallbladder surgery and a "filter placement in his stomach". He also reports that he is not able to swallow and has decreased appetite for which he had a PEG tube placed. He also had Johnson catheter placed since his [facility] discharged which is still present. He had open cholecystectomy. He has chronic back pain which was bothering him significantly which made him come to the ER primarily. He also reported he had C. difficile and was given 14 days of PO vancomycin for treatment on discharge. He continues to have diarrhea about 3 episodes a day. Patient was evaluated in the ER with a CT scan which showed new right upper lobe nodularity concerning for infectious or inflammatory cause or possibly aspiration sequelae, increased bilateral pleural effusion. Abdominal cuts in the lung CT showed concern for biloma and resolving subcapsular splenic hematoma. Patient laboratory data significant for white count of 12.1, hemoglobin 11.5 platelet of 544, sodium of 128, alkaline phosphatase 199. Patient was given a dose of Levaquin and 1 L of normal saline and oxycodone and admission was requested for further management. A bone mention history was confirmed with the patient. Unclear history of penicillin allergy. Does not know his medication except he is taking pain medication, insulin, vancomycin and gabapentin. He was reportedly also getting Lovenox injection which he could not take him cells. Discussed CODE STATUS and he does not want any resuscitation and does not want any lab support and that he only wants his pain controlled. Past Med Surg Social Fam HX - Past Medical History Medical history: COPD, CVA, diabetes, hyperlipidemia, hypertension, myocardial infarction, other Additional medical history: sleep apnea. wheechair bound due to unclear neurologic condition likley from h/o trauma. Chronic back pain Psychiatric history: anxiety, depression, PTSD - Past Surgical History Surgical History: tonsillectomy Additional surgical history: GB surgery, Possible IVC filter - Social History Smoking Status: Former smoker Smokeless Tobacco Status: No Alcohol use: occasionally Drug use: none - Additional Family History Additional family history: No significant cancer history in family Internal Medicine - H&P: Meds Aspirin Enteric Coated [Aspirin EC] 81 mg PO DAILY 04/19/18 [History] Cetirizine HCl [All Day Allergy] 10 mg PO DAILY 04/19/18 [History] Citalopram Hydrobromide [Citalopram HBr] 40 mg PO HS 04/19/18 [History] Clorazepate Dipotassium 15 mg PO BID 04/19/18 [History] Insulin ASPART [NovoLOG] 0 unit SQ TIDWM 04/19/18 [History] Insulin Glargine,Hum.rec.anlog [Lantus Solostar] 10 unit SQ HS 04/19/18 [History] traZODone [TraZODone] 50 mg PO HS 04/19/18 [History] Aspirin [Ecotrin] 325 mg PO HS 09/20/18 [History] Docusate [Colace] 100 mg PO DAILY PRN 09/20/18 [History] Furosemide [Lasix] 20 mg PO DAILY PRN 09/20/18 [History] Gabapentin [Neurontin] 1,200 mg PO HS 09/20/18 [History] Gabapentin [Neurontin] 600 mg PO QAM 09/20/18 [History] Ondansetron ODT [Zofran ODT] 4 mg SL Q6HR PRN #8 tab.rapdis 10/27/18 [Rx] Atenolol [Tenormin] 25 mg PO BID tablet 11/26/18 [Rx] Budesonide/Formoterol 160/4.5 [Symbicort 160/4.5] 2 puff IH BIDR #1 inh 11/26/18 [Rx] Isosorbide DInitrate [Isordil] 20 mg PO 0800,1800 tablet 11/26/18 [Rx] Omeprazole [PriLOSEC] 20 mg PO DAILY #30 cap 11/26/18 [Rx] Lidocaine Patch [Lidoderm 5% patch] 1 each TP DAILY PRN #10 adh..patch 01/05/19 [Rx] Allergy/AdvReac Type Severity Reaction Status Date / Time Penicillins [PCN] Allergy See Verified 10/26/18 23:51 Comments All Systems PM: A 10-system review of systems was performed and is negative for pertinent findings except as documented above in the HPI. - Constitutional Vitals: Temp Pulse Resp BP Pulse Ox 98.3 F 60 18 129/64 99 05/05/19 06:23 05/05/19 08:48 05/05/19 08:48 05/05/19 08:48 05/05/19 08:48 Exam: Constitutional: Vitals as noted. Conversant. No Apparent Distress. Obese Eyes : Sclera white, conjunctiva clear, no lid lag, PEARLA. ENT : Grossly normal hearing. Respiratory : No accessory muscle use, occasional rhonchi Cardiovascular : RRR, +S1, +S2. no murmur, gallop, rubs. No chest wall tenderness GI/Abdominal : Soft, Non-tender, Non-distended, no peritoneal signs. Peg tube in place, GB surgical scar Musculoskeletal: trace edema, pulses palpable and symmetrical in UE/LE. no calf tenderness. muscle atrophy b/l LE Neurological: AO X3, CN II-XII grossly intact, grossly normal motor and sensory exam. Skin: stage I decub on coccyx Pych: anxious,. AOx3. Internal Med - H&P Results - Labs CBC & Chem 7: 05/05/19 01:05 05/05/19 01:05 Labs: Short CBC 05/05/19 Range/Units 01:05 WBC 12.1 H (4.3-11.1) K/mcL Hgb 11.5 L (12.9-16.9) g/dL Hct 35.3 L (37.5-50.1) % Plt Count 544 H (140-400) K/mcL Neutrophils # 8.8 (1.6-8.9) K/mcL BMP 05/05/19 01:05 Sodium 128 L Potassium 3.7 Chloride 92 L Carbon Dioxide 29 BUN 11 Creatinine 0.62 L Glucose 174 H Calcium 9.2 Cardiac Enzymes 05/05/19 Range/Units 01:05 Troponin I < 0.03 (< 0.04) ng/mL Liver Function 05/05/19 Range/Units 01:05 Total Bilirubin 0.4 (0.3-1.0) mg/dL AST 23 (13-39) Units/L ALT 27 (7-52) Units/L Alkaline Phosphatase 199 H (34-104) Units/L Albumin 3.4 L (3.5-5.7) g/dL - Impressions ITS Impressions Chest X-Ray 05/05/19 01:55 IMPRESSION: Medial basal opacities could reflect summation artifact versus atelectasis, aspiration or pneumonia. D/ / Leonard Graham / Leonard Graham Interpreting Provider: Leonard Graham Chest CT 05/05/19 04:40 IMPRESSION: New right upper lobe clustered nodularity, presumably infectious or inflammatory and possibly related aspiration sequela given dependent tracheobronchial secretions. Increased volume of bilateral pleural effusions. Limited evaluation of the upper abdomen demonstrates questionable postsurgical changes of cholecystectomy (given new surgical clip in this area)-if so, a collection is present along the gallbladder fossa which could represent a biloma given new adjacent low attenuation of the hepatic parenchyma along the gallbladder fossa. Nuclear medicine HIDA scan could clarify if needed. Resolving subcapsular splenic hematoma. D/ / Leonard Graham / Leonard Graham Interpreting Provider: Leonard Graham - Assessment and Plan (1) Intractable pain Current Visit: Yes Status: Acute Assessment and plan: Long history of back pain from previous injuries. No other concerning acute finding. Has stage I decubitus wound on coccyx. We will control patient's pain with his reportedly home dose of Vicodin and as needed fentanyl We will confirm his previous pain regimen. (2) Abnormal CT of the chest Current Visit: Yes Status: Acute Assessment and plan: Patient with right upper lobe nodularity with concern of possible infectious versus inflammatory cause or possibly related to aspiration sick with. I favor the later given he has PEG tube. We will hold any antibiotics for now and discontinue Levaquin given history of C. difficile. Patient without any fevers chills or difficulty breathing. Leukocytosis could be related to his C. difficile ST still has some diarrhea. Patient also had a concern of biloma on the CAT scan. He has mildly elevated alkaline phosphatase without elevation of AST ALT her bilirubin. Discussed case with Dr. Thompson who recommended GI consult and HIDA scan. Discussed case with gastroenterology in case of need for ERCP. (3) Leukocytosis Current Visit: Yes Status: Acute Assessment and plan: Possibly related to his C. difficile. Will repeat C. difficile testing and continue patient on vancomycin. Qualifiers: Qualified Code(s): D72.829 - Elevated white blood cell count, unspecified (4) Hyponatremia Current Visit: No Status: Acute Assessment and plan: Possibly prerenal Keep patient on gentle IV fluids and monitor sodium levels tomorrow. (5) Pulmonary emboli Current Visit: No Status: Acute Assessment and plan: Patient's CT with chronic PE in January. Patient might have had IVC filter at [facility] but history is unclear. We will keep patient on therapeutic Lovenox for now until we get further [facility] records about possible DVT or another PE. Qualifiers: Pulmonary embolism type: unspecified Chronicity: acute Acute cor pulmonale presence: without acute cor pulmonale Qualified Code(s): I26.99 - Other pulmonary embolism without acute cor pulmonale (6) Depression Current Visit: No Status: Chronic Assessment and plan: Continue home medications once confirmed. Qualifiers: Depression Type: unspecified Qualified Code(s): F32.9 - Major depressive disorder, single episode, unspecified (7) Diabetes Current Visit: No Status: Chronic Assessment and plan: Keep patient on diabetic diet and sliding scale insulin and Accu-Cheks before meals at bedtime. 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 Patient able to swallow saliva without any apparent difficulty. We will obtain official speech evaluation. Qualifiers: Dysphagia type: unspecified Qualified Code(s): R13.10 - Dysphagia, unspecified (10) Chronic indwelling Johnson catheter Current Visit: Yes Status: Acute Assessment and plan: Patient has chronic indwelling Johnson since [facility] admission. Patient unaware of the reason that he was continued on. We will consider voiding tired in 1-2 days or use a condom catheter. - Time Spent With Patient Total time spent is greater than 50% in coordination of care (as documented) at patient's floor/unit and/or counseling patient:
[2019-05-05] MEDS ORDERED: *HR* HYDROcodone/Acet 7.5/325 mg TABLET PO PRN (09:18)
[2019-05-05] MEDS ORDERED: 0.9 % Sodium Chloride 1,000 ML IVC SCH (10:30)
[2019-05-05] MEDS: Insulin LISPRO 300 UNITS/3 ML VIAL SQ SCH ×3 (11:39→21:25)
--- NOTE | 2019-05-05 12:14 | Gastroenterology Consult Note ---
<Luis Carlos Siddiqui Juan - Last Filed: 05/05/19 12:12> Date of Encounter: 05/05/19 Time of Encounter: 11:10 - Assessment and plan (1) Abnormal CT of the chest Current Visit: Yes Status: Acute Assessment and plan: CT of the chest showed limited evaluation of the upper abdomen but demonstrates questionable to surgical changes of cholecystectomy collection present along the gallbladder fossa which could represent a biloma. On admission WBC 12.1, Hgb 11.5, and a 128, TB 0.4, AST 23, ALT 27, Alk Phos 199. Check routine HIDA scan. Collection appears too small for intervention. Dr. Kowalski will review HIDA once completed. (2) C. difficile diarrhea Current Visit: Yes Status: Acute Assessment and plan: Patient was discharged from [facility] with 14 day course of PO Vancomycin. Continue PO Vanco. Start Lactobacillus. - Time Spent With Patient Total time spent is greater than 50% in coordination of care (as documented) at patient's floor/unit and/or counseling patient: GI History of Present Illness - Data of Consult Patient: new to practice Consult date: 05/05/19 Requesting Physician: Adri Chavez DO - Consult Narrative Reason for consult: possible biloma History of present illness: Mr. Toure is a 63 year old male with PMHx of COPD, CVA, DM, HLD, HTN, [place], who is been wheelchair-bound for 4 years for lower extremity weakness with unclear etiology probably from previous injuries was recently transferred to [facility] from here due to splenic hematoma and has been at rehabilitation for almost 3 months. He was admitted for pain control and possible PNA. Patient reportedly he had splenic repair, open cholecystectomy, and a "filter placement in his stomach". He also reports that he is not able to swallow and has decreased appetite for which he had a PEG tube placed. He reports he had C. difficile was given 14 days of vancomycin, he continues to have [address] episodes [address] of the chest showed limited evaluation of the upper abdomen but demonstrates questionable to surgical changes of cholecystectomy collection present along the gallbladder fossa which could represent a biloma. On admission WBC 12.1, Hgb 11.5, and a 128, TB 0.4, AST 23, ALT 27, Alk Phos 199. Procedures: None NSAIDs: ASA Anticoagulation: None Past Med Surg Social Fam HX - Past Medical History Medical history: COPD, CVA, diabetes, hyperlipidemia, hypertension, myocardial infarction, other Additional medical history: sleep apnea. wheechair bound due to unclear neurologic condition likley from h/o trauma. Chronic back pain Psychiatric history: anxiety, depression, PTSD - Past Surgical History Surgical History: tonsillectomy Additional surgical history: GB surgery, Possible IVC filter - Social History Smoking Status: Former smoker Smokeless Tobacco Status: No Alcohol use: none Drug use: none - Gastrointestinal Gastrointestinal: Present: as per HPI - Constitutional Constitutional: as per HPI - EENT Eyes: as per HPI Ears: Present: as per HPI Nose, mouth and throat: Present: as per HPI - Cardiovascular Cardiovascular ROS: Present: as per HPI - Respiratory Respiratory IM: Present: as per HPI - Genitourinary Genitourinary: Absent: change in color, Urinary frequency - Neurological ROS Neurological GI: Present: as per HPI - Hematologic/Lymphatic Hematologic/Lymphatic pediatric: Present: as per HPI - Musculoskeletal Musculoskeletal ROS GI: Present: as per HPI - Integumentary Integumentary GI: Present: as per HPI - Psychiatric ROS Psychiatric GI: Present: as per HPI - Endocrine Endocrine IM: Present: as per HPI - Constitutional Vitals: Temp Pulse Resp BP Pulse Ox 98.3 F 90 18 137/79 95 05/05/19 10:55 05/05/19 10:55 05/05/19 10:55 05/05/19 10:55 05/05/19 10:55 General appearance: Present: cooperative, A&O X 3, no acute distress, answers questions appropriately - Head Head exam: Present: atraumatic, normocephalic - Eye Eye exam: Present: normal appearance, sclera anicteric - ENT ENT exam: Present: mucous membranes dry - Neck Neck exam general surgery: Present: normal inspection, trachea midline - Respiratory Respiratory exam: Present: decreased breath sounds, CTAB. Absent: rales, rhonchi - Cardiovascular Cardiovascular exam: Present: RRR, +S1, +S2 - GI/Abdominal GI/Abdominal exam: Present: soft, no peritoneal signs. Absent: distended, firm, guarding, tenderness Additional comments: PEG tube in place, RUQ surgical scar. - Rectal Rectal exam: Present: deferred - Extremities Exam Extremities exam: Present: warm - Neurological Exam Neurological exam: Present: no focal deficits - Psychiatric Psychiatric exam: Present: normal affect, normal mood - Skin Skin exam: Present: dry, intact, normal color, warm Results - Labs CBC & Chem 7: 05/05/19 01:05 05/05/19 01:05 Labs: Last Result 05/05/19 05/05/19 01:05 01:05 Calcium 9.2 Troponin I < 0.03 Entire Visit 05/05/19 05/05/19 01:05 01:05 Hgb 11.5 L Hct 35.3 L Total Bilirubin 0.4 AST 23 ALT 27 - Impressions Impressions Chest X-Ray 05/05/19 01:55 IMPRESSION: Medial basal opacities could reflect summation artifact versus atelectasis, aspiration or pneumonia. D/ / Leonard Graham / Leonard Graham Interpreting Provider: Leonard Graham Chest CT 05/05/19 04:40 IMPRESSION: New right upper lobe clustered nodularity, presumably infectious or inflammatory and possibly related aspiration sequela given dependent tracheobronchial secretions. Increased volume of bilateral pleural effusions. Limited evaluation of the upper abdomen demonstrates questionable postsurgical changes of cholecystectomy (given new surgical clip in this area)-if so, a collection is present along the gallbladder fossa which could represent a biloma given new adjacent low attenuation of the hepatic parenchyma along the gallbladder fossa. Nuclear medicine HIDA scan could clarify if needed. Resolving subcapsular splenic hematoma. D/ / Leonard Graham / Leonard Graham Interpreting Provider: Leonard Graham Consult Discharge Plan - Plan Referrals: NONE,PCP [Primary Care Provider] - <Matilda Kowalski - Last Filed: 05/05/19 16:31> Date of Encounter: 05/05/19 Time of Encounter: 14:00 - Time Spent With Patient Total time spent is greater than 50% in coordination of care (as documented) at patient's floor/unit and/or counseling patient: GI History of Present Illness - Data of Consult Requesting Physician: Adri Chavez DO - Consult Narrative History of present illness: Mr. Toure is a 63 year old male - Constitutional Vitals: Temp Pulse Resp BP Pulse Ox 98.8 F 69 17 123/68 98 05/05/19 13:43 05/05/19 13:43 05/05/19 13:43 05/05/19 13:43 05/05/19 13:43 Results - Labs CBC & Chem 7: 05/05/19 01:05 05/05/19 01:05 - Impressions Impressions Chest X-Ray 05/05/19 01:55 IMPRESSION: Medial basal opacities could reflect summation artifact versus atelectasis, aspiration or pneumonia. D/ / Leonard Graham / Leonard Graham Interpreting Provider: Leonard Graham Chest CT 05/05/19 04:40 IMPRESSION: New right upper lobe clustered nodularity, presumably infectious or inflammatory and possibly related aspiration sequela given dependent tracheobronchial secretions. Increased volume of bilateral pleural effusions. Limited evaluation of the upper abdomen demonstrates questionable postsurgical changes of cholecystectomy (given new surgical clip in this area)-if so, a collection is present along the gallbladder fossa which could represent a biloma given new adjacent low attenuation of the hepatic parenchyma along the gallbladder fossa. Nuclear medicine HIDA scan could clarify if needed. Resolving subcapsular splenic hematoma. D/ / Leonard Graham / Leonard Graham Interpreting Provider: Leonard Graham Bile Acid Absorption NM 05/05/19 13:31 IMPRESSION: No convincing evidence of bile leak. D/ / Aldair Perry MD / Aldair Perry MD Interpreting Provider: Aldair Perry MD - Attending Attestation I have personally performed a face to face evaluation on this patient. I have reviewed and agree with the care plan. History and Exam by me shows: Pt seen. AAO not in disrtress O/E AAO. A: Pt with abn CT with poss biloma in GB fossa . Hida negative. LFTS negative. Rec: No need for ERCP
[2019-05-05] MEDS ORDERED: Lactobacillus 1 EACH CAP.SPRINK PO SCH (12:30)
[2019-05-05] MEDS ORDERED: Vancomycin Oral Soln 125 MG/2.5 ML UDC PO SCH (13:00)
[2019-05-05] MEDS: *HR* FentaNYL (PF) 100 MCG/2 ML VIAL IVP PRN (13:50)
[2019-05-05] MEDS: Vancomycin Oral Soln 125 MG/2.5 ML UDC GTUBE SCH ×2 (17:01→21:47)
[2019-05-05] MEDS: *HR* HYDROcodone/Acet 7.5/325 mg TABLET GTUBE PRN (17:33)
[2019-05-05 18:02] LABS: INR 1.3; Prothrombin Time 14.7 Seconds (9.4-12.1)
[2019-05-05] MEDS: *HR* Heparin 5,000 UNIT/ML VIAL SQ SCH (21:47)
[2019-05-05] MEDS: Gabapentin 400 MG CAPSULE PO SCH (21:47)
[2019-05-06] MEDS: *HR* FentaNYL (PF) 100 MCG/2 ML VIAL IVP PRN ×2 (03:25→15:19)
[2019-05-06 04:32] LABS: Basophils # 0.1 K/mcL (0.0-0.2); Basophils % 0.4 %; Eosinophils # 0.2 K/mcL (0.0-0.6); Eosinophils % 1.2 %; Immature Granulocytes % 0.4 % (0-4); Lymphocytes # 2.8 K/mcL (0.6-4.6); Lymphocytes % 13.6 %; Mean Corpuscular HGB Conc 31.7 g/dL (31.6-35.5); Mean Corpuscular Hemoglobin 29.3 pg (28.0-33.3); Mean Corpuscular Volume 92.6 fL (83.0-100.0); Mean Platelet Volume 10.4 fL (9.4-12.4); Monocytes # 1.2 K/mcL (0.0-1.3); Platelet Count 430 K/mcL (140-400); Red Blood Count 3.24 M/mcL (4.19-5.50); Red Cell Distribution Width 15.5 % (11.5-14.5); Segmented Neutrophils % 78.4 %; White Blood Count 20.4 K/mcL (4.3-11.1)
[2019-05-06 04:33] LABS: Hemoglobin 9.5 g/dL (12.9-16.9)
[2019-05-06 04:40] LABS: INR 1.4; Prothrombin Time 15.5 Seconds (9.4-12.1)
[2019-05-06 04:50] LABS: BUN/Creatinine Ratio 17 (6-26); Blood Urea Nitrogen 9 mg/dL (8-23); Calcium 8.3 mg/dL (8.6-10.3); Carbon Dioxide 27 mEq/L (23-29); Chloride 97 mEq/L (98-107); Glucose 180 mg/dL (70-105); Magnesium 1.7 mg/dL (1.6-2.6); Osmolality,Calculated 273 (280-300); Phosphorous 3.5 mg/dL (2.7-4.5); Potassium 3.6 mEq/L (3.5-5.1); Sodium 130 mEq/L (136-145); eGFR For African Americans > 60 (> 60); eGFR For Non-African Americans > 60 (> 60)
[2019-05-06] MEDS: *HR* Heparin 5,000 UNIT/ML VIAL SQ SCH ×3 (05:43→21:21)
--- NOTE | 2019-05-06 09:41 | Internal Med Progress Note ---
<Barrie Ragland - Last Filed: 05/06/19 11:49> Hospitalist Progress Note - Encounter Date of Encounter: 05/06/19 Time of Encounter: 09:35 - Exam Vitals: Temp Pulse Resp BP Pulse Ox 98.5 F 69 16 123/72 97 05/06/19 10:20 05/06/19 10:20 05/06/19 10:20 05/06/19 10:20 05/06/19 10:20 - Assessment and Plan (1) Intractable pain Current Visit: Yes Status: Acute (2) Abnormal CT of the chest Current Visit: Yes Status: Acute (3) Leukocytosis Current Visit: Yes Status: Acute (4) Hyponatremia Current Visit: No Status: Acute (5) Pulmonary emboli Current Visit: No Status: Acute (6) Depression Current Visit: No Status: Chronic (7) Diabetes Current Visit: No Status: Chronic (8) Hypertension Current Visit: No Status: Chronic (9) Difficulty swallowing Current Visit: Yes Status: Acute (10) Chronic indwelling Johnson catheter Current Visit: Yes Status: Acute - Time Spent with Patient Total time spent is greater than 50% in coordination of care (as documented) at patient's floor/unit and/or counseling patient: Internal Medicine: Result - Labs CBC & Chem 7: 05/06/19 03:57 05/06/19 03:57 Labs: Short CBC 05/06/19 Range/Units 03:57 WBC 20.4 H D (4.3-11.1) K/mcL Hgb 9.5 L D (12.9-16.9) g/dL Hct 30.0 L (37.5-50.1) % Plt Count 430 H (140-400) K/mcL Neutrophils # 16.0 H (1.6-8.9) K/mcL BMP 05/06/19 03:57 Sodium 130 L Potassium 3.6 Chloride 97 L Carbon Dioxide 27 BUN 9 Creatinine 0.54 L Glucose 180 H Calcium 8.3 L - ABG Interpretation ABG results: PT/INR, D-dimer PT 15.5 Seconds (9.4-12.1) H 05/06/19 03:57 - Impressions Impressions Bile Acid Absorption NM 05/05/19 13:31 IMPRESSION: No convincing evidence of bile leak. D/ / Aldair Perry MD / Aldair Perry MD Interpreting Provider: Aldair Perry MD Consult Discharge Plan - Plan Referrals: NONE,PCP [Primary Care Provider] - - Attending Attestation I saw evaluated and examined this patient and reviewed objective data including labs and my medical decision-making was reviewed with the Resident Physician, Memo Tyson. I agree with the documented findings, disposition and treatment plan as described except to any changes set forth below. We independently had [id number] contact with the patient. Patient lying on bed. Comfortable. Denies any significant shortness of breath or chest pain at this time. No fevers or chills reported overnight. Currently receiving tube feeds. Saturating at 97% on 3 L. No chest pain or palpitations. No significant abdominal pain. Patient has had extensive hospitalizations throughout this year. We will try to obtain records from most recent hospitalization at [facility] where he apparently had multiple surgeries including removal of his gallbladder and pancreas. He also apparently developed Clostridium difficile infection and has been treated with oral vancomycin since then. Patient does have leukocytosis and CT scan of the chest showed signs of possible aspiration and dependent tracheobronchial secretions. However, he does have normal procalcitonin level. In any case given his leukocytosis and his comorbidities, will treat him empirically with antibiotics for aspiration pneumonitis. If he does not develop any fever chills or infiltrate on repeat chest x-ray in a couple of days, these antibiotics can be stopped. We will also check his urine and sent for culture. Patient has chronic indwelling Johnson catheter. HIDA scan done and did not show any biliary leak. Gastroenterology consult appreciated. No further workup needed for this. Moderate risk for complications. <Memo Tyson - Last Filed: 05/06/19 21:11> Hospitalist Progress Note - Encounter Date of Encounter: 05/06/19 - Subjective Interval History: Pt seen and examined at bedside. Pt currently receiving a bath. Reports he is generally bed bound related to previous injuries. States he is concerned that he may have an ulcer from sitting in the same position at the [facility] for an extended period of time. No other new or acute complaints. Denies any fever, chills, chest pain, or shortness of breath. States he does not want to eat and is requesting nutritional only be given through his PEG tube at this time. Denies any nausea or vomiting. - Exam Vitals: Temp Pulse Resp BP Pulse Ox 98.4 F 65 16 124/74 94 05/06/19 06:43 05/06/19 06:43 05/06/19 06:43 05/06/19 06:43 05/06/19 06:43 Exam: General: obese male in no acute distress Head: NCAT Eyes: PERRL, EOMI, sclera anicteric, conjunctiva pink Neck: supple, trachea midline Lungs: grossly diminshed breath sounds. No wheezes, or rhonchi noted. Heart: RRR +s1 +s2 No murmurs, clicks, or rubs appreciated GI: abdomen soft, obese, non-tender Extremities: warm, peripheral pulses palpable and symmetrical. No calf tenderness or cyanosis Neuro: A&Ox3. No focal deficits. No speech difficulty or abnormality Skin: warm, dry, stage 1 sacral decubitus ulcer - Assessment and Plan (1) Intractable pain Current Visit: Yes Status: Acute Assessment and Plan: Long history of back pain from previous injuries. No other concerning acute finding. Continue home dose of Vicodin Increase dose of Fentanyl for breakthrough pain after confirming home pain med regimen Continue to monitor (2) Aspiration pneumonia Current Visit: Yes Status: Acute Assessment and Plan: No SOB or cough, afebrile However does have leukocytosis Also positional dependent secretions seen on CT chest Start IV Cefepime and Flagyl with pt's penicillin allergy Pt has PEG tube in place (3) Pulmonary emboli Current Visit: No Status: Acute Assessment and Plan: Patient's CT with chronic PE in January. Patient might have had IVC filter at [facility] but history is unclear. Obtain [facility] records for this and also C diff (4) Depression Current Visit: No Status: Chronic Assessment and Plan: Continue home meds (5) Diabetes Current Visit: Yes Status: Chronic Assessment and Plan: ACHS accuchecks and SSI (6) Hypertension Current Visit: Yes Status: Chronic Assessment and Plan: Currently controlled Continue home meds (7) Chronic indwelling Johnson catheter Current Visit: Yes Status: Acute Assessment and Plan: Patient has chronic indwelling Johnson since [facility] admission. Patient unaware of the reason it is still in place (8) C. difficile diarrhea Current Visit: Yes Status: Acute Assessment and Plan: Unclear of onset or duration of treatment Obtain [facility] records DVT Prophylaxis: SQ Heparin - Time Spent with Patient Total time spent is greater than 50% in coordination of care (as documented) at patient's floor/unit and/or counseling patient: Internal Medicine: Result - Labs CBC & Chem 7: 05/06/19 03:57 05/06/19 03:57 Labs: Short CBC 05/06/19 Range/Units 03:57 WBC 20.4 H D (4.3-11.1) K/mcL Hgb 9.5 L D (12.9-16.9) g/dL Hct 30.0 L (37.5-50.1) % Plt Count 430 H (140-400) K/mcL Neutrophils # 16.0 H (1.6-8.9) K/mcL BMP 05/06/19 03:57 Sodium 130 L Potassium 3.6 Chloride 97 L Carbon Dioxide 27 BUN 9 Creatinine 0.54 L Glucose 180 H Calcium 8.3 L - ABG Interpretation ABG results: PT/INR, D-dimer PT 15.5 Seconds (9.4-12.1) H 05/06/19 03:57 - Impressions Impressions Bile Acid Absorption NM 05/05/19 13:31 IMPRESSION: No convincing evidence of bile leak. D/ / Aldair Perry MD / Aldair Perry MD Interpreting Provider: Aldair Perry MD <Barrie Ragland - Last Filed: 05/06/19 11:49> (3) Leukocytosis Qualifiers: Qualified Code(s): D72.829 - Elevated white blood cell count, unspecified (5) Pulmonary emboli Qualifiers: Pulmonary embolism type: unspecified Chronicity: acute Acute cor pulmonale presence: without acute cor pulmonale Qualified Code(s): I26.99 - Other pulmonary embolism without acute cor pulmonale (6) Depression Qualifiers: Depression Type: unspecified Qualified Code(s): F32.9 - Major depressive disorder, single episode, unspecified (7) Diabetes Qualifiers: Diabetes mellitus type: type 2 Diabetes mellitus fdc insulin use: with termination clerk use Diabetes mellitus complication detail: with polyneuropathy Qualified Code(s): E11.42 - Type 2 diabetes mellitus with diabetic polyneuropathy; Z79.4 - exterminator helper (current) use of insulin (8) Hypertension Qualifiers: Hypertension type: essential hypertension Qualified Code(s): I10 - Essential (primary) hypertension (9) Difficulty swallowing Qualifiers: Dysphagia type: unspecified Qualified Code(s): R13.10 - Dysphagia, unspecified <Memo Tyson - Last Filed: 05/06/19 21:11> (2) Aspiration pneumonia Qualifiers: Aspiration pneumonia type: unspecified Laterality: unspecified laterality Lung location: unspecified part of lung Qualified Code(s): J69.0 - Pneumonitis due to inhalation of food and vomit (3) Pulmonary emboli Qualifiers: Pulmonary embolism type: unspecified Chronicity: acute Acute cor pulmonale presence: without acute cor pulmonale Qualified Code(s): I26.99 - Other pulmonary embolism without acute cor pulmonale (4) Depression Qualifiers: Depression Type: unspecified Qualified Code(s): F32.9 - Major depressive disorder, single episode, unspecified (5) Diabetes Qualifiers: Diabetes mellitus type: type 2 Diabetes mellitus fdc insulin use: with fdc use Diabetes mellitus complication detail: with polyneuropathy Qualified Code(s): E11.42 - Type 2 diabetes mellitus with diabetic polyneuropathy; Z79.4 - exterminator helper (current) use of insulin (6) Hypertension Qualifiers: Hypertension type: essential hypertension Qualified Code(s): I10 - Essential (primary) hypertension
[2019-05-06] MEDS: *HR* HYDROcodone/Acet 7.5/325 mg TABLET GTUBE PRN ×3 (09:57→23:09)
[2019-05-06] MEDS: Vancomycin Oral Soln 125 MG/2.5 ML UDC GTUBE SCH ×4 (09:57→21:21)
[2019-05-06] MEDS: Lactobacillus 1 EACH CAP.SPRINK GTUBE SCH (09:57)
[2019-05-06] MEDS: Insulin LISPRO 300 UNITS/3 ML VIAL SQ SCH ×4 (10:01→21:21)
[2019-05-06] MEDS: MetroNIDAZOLE 500 MG/100 ML 500 MG/100 ML BAG IVPB SCH (15:20)
[2019-05-06] MEDS: Cefepime HCl 2,000 MG in Water for inj. (sterile) 20 ML IVP SCH ×2 (15:20→23:10)
[2019-05-06] MEDS ORDERED: *HR* FentaNYL (PF) 100 MCG/2 ML VIAL IVP PRN (19:15)
[2019-05-06 19:27] LABS: Bilirubin,Urine Negative (Negative); Blood,Urine Moderate (Negative); Clarity,Urine Turbid (Clear); Color,Urine Yellow (Yellow); Glucose,Urine (UA) Normal (Normal); Ketones,Urine Negative (Negative); Leukocyte Esterase,Urine Large (Negative); Nitrite,Urine Positive (Negative); PH,Urine 6.5 pH Units (5.0-8.0); Protein,Urine 30 mg/dL (Neg-Trace); Specific Gravity,Urine 1.019 (1.010-1.025); Urobilinogen,Urine Normal (Normal)
[2019-05-06 19:29] LABS: Bacteria,Urine None Seen per hpf (None-Few); Hyaline Casts,Urine None Seen per lpf (None-Few); Squamous Epithelial Cell,Urine Many per lpf (None-Few); WBC,Urine TNTC per hpf (0-3)
[2019-05-06 19:44] LABS: RBC,Urine 0-3 per hpf (0-3); Yeast,Urine Moderate per hpf (None Seen)
[2019-05-06] MEDS: Gabapentin 400 MG CAPSULE PO SCH (21:21)
[2019-05-07] MEDS: MetroNIDAZOLE 500 MG/100 ML 500 MG/100 ML BAG IVPB SCH ×3 (00:34→14:53)
[2019-05-07 05:25] LABS: Basophils # 0.1 K/mcL (0.0-0.2); Basophils % 0.6 %; Eosinophils % 7.4 %; Hematocrit 28.9 % (37.5-50.1); Hemoglobin 9.2 g/dL (12.9-16.9); Immature Granulocytes % 0.3 % (0-4); Lymphocytes # 1.9 K/mcL (0.6-4.6); Lymphocytes % 14.6 %; Mean Corpuscular HGB Conc 31.8 g/dL (31.6-35.5); Mean Corpuscular Hemoglobin 29.7 pg (28.0-33.3); Mean Corpuscular Volume 93.2 fL (83.0-100.0); Mean Platelet Volume 10.4 fL (9.4-12.4); Monocytes # 0.9 K/mcL (0.0-1.3); Monocytes % 6.5 %; Neutrophils # 9.4 K/mcL (1.6-8.9); Platelet Count 413 K/mcL (140-400); Red Cell Distribution Width 15.4 % (11.5-14.5); Segmented Neutrophils % 70.6 %; White Blood Count 13.3 K/mcL (4.3-11.1)
[2019-05-07 05:32] LABS: INR 1.2; Prothrombin Time 13.4 Seconds (9.4-12.1)
[2019-05-07] MEDS: *HR* Heparin 5,000 UNIT/ML VIAL SQ SCH ×3 (05:46→21:32)
[2019-05-07 05:47] LABS: Alkaline Phosphatase 219 Units/L (34-104); BUN/Creatinine Ratio 18 (6-26); Blood Urea Nitrogen 10 mg/dL (8-23); Calcium 8.6 mg/dL (8.6-10.3); Carbon Dioxide 29 mEq/L (23-29); Chloride 96 mEq/L (98-107); Glucose 231 mg/dL (70-105); Osmolality,Calculated 276 (280-300); Potassium 3.6 mEq/L (3.5-5.1); Sodium 130 mEq/L (136-145); eGFR For African Americans > 60 (> 60); eGFR For Non-African Americans > 60 (> 60)
--- NOTE | 2019-05-07 07:34 | Internal Med Progress Note ---
<Barrie Ragland - Last Filed: 05/07/19 11:21> Hospitalist Progress Note - Encounter Date of Encounter: 05/07/19 Time of Encounter: 09:30 - Exam Vitals: Temp Pulse Resp BP Pulse Ox 98.4 F 72 17 122/60 97 05/07/19 09:52 05/07/19 09:52 05/07/19 09:52 05/07/19 09:52 05/07/19 09:52 - Assessment and Plan (1) Intractable pain Current Visit: Yes Status: Acute (2) Aspiration pneumonia Current Visit: Yes Status: Acute (3) Pulmonary emboli Current Visit: No Status: Acute (4) Depression Current Visit: No Status: Chronic (5) Diabetes Current Visit: Yes Status: Chronic (6) Hypertension Current Visit: Yes Status: Chronic (7) Chronic indwelling Johnson catheter Current Visit: Yes Status: Acute (8) C. difficile diarrhea Current Visit: Yes Status: Acute - Time Spent with Patient Total time spent is greater than 50% in coordination of care (as documented) at patient's floor/unit and/or counseling patient: Internal Medicine: Result - Labs CBC & Chem 7: 05/07/19 04:57 05/07/19 04:57 Labs: Short CBC 05/07/19 Range/Units 04:57 WBC 13.3 H (4.3-11.1) K/mcL Hgb 9.2 L (12.9-16.9) g/dL Hct 28.9 L (37.5-50.1) % Plt Count 413 H (140-400) K/mcL Neutrophils # 9.4 H (1.6-8.9) K/mcL BMP 05/07/19 04:57 Sodium 130 L Potassium 3.6 Chloride 96 L Carbon Dioxide 29 BUN 10 Creatinine 0.55 L Glucose 231 H Calcium 8.6 Liver Function 05/07/19 Range/Units 04:57 Alkaline Phosphatase 219 H (34-104) Units/L Urine 05/06/19 Range/Units 18:27 Urine Color Yellow (Yellow) Urine Clarity Turbid A (Clear) Urine pH 6.5 (5.0-8.0) pH Units Ur Specific [place] 1.019 (1.010-1.025) Urine Protein 30 H (Neg-Trace) mg/dL Urine Glucose (UA) Normal (Normal) mg/dL - ABG Interpretation ABG results: PT/INR, D-dimer PT 13.4 Seconds (9.4-12.1) H 05/07/19 04:57 Consult Discharge Plan - Plan Referrals: NONE,PCP [Primary Care Provider] - - Attending Attestation I saw evaluated and examined this patient and reviewed objective data including labs and my medical decision-making was reviewed with the Resident Physician, Memo Tyson. I agree with the documented findings, disposition and treatment plan as described except to any changes set forth below. We independently had [id number] contact with the patient. Patient is awake and alert.Lying down in bed. Comfortable. Denies any new complaints at this time. WBC count is coming down. Will obtain chest x-ray tomorrow to reevaluate for aspiration. His chest x-ray appears clear, consider stopping antibiotics. Urinalysis completed. We will follow culture results. Patient does have chronic indwelling Johnson catheter. Continue oral vancomycin. Awaiting records from [facility] regarding duration of treatment for previous C. difficile colitis. Patient also has a stage I decubitus ulcer being managed supportively. Will consult wound care to evaluate. Continue tube feeds. Monitor blood sugars. <Memo Tyson - Last Filed: 05/07/19 13:54> Hospitalist Progress Note - Encounter Date of Encounter: 05/07/19 - Subjective Interval History: Pt seen and examined at bedside. No acute events overnight. No new or acute symptoms. Denies any fever, chills, chest pain, shortness of breath, abdominal pain, nausea, or vomiting. - Exam Vitals: Temp Pulse Resp BP Pulse Ox 97.8 F 68 17 101/60 94 05/07/19 06:51 05/07/19 06:51 05/07/19 06:51 05/07/19 06:51 05/07/19 06:51 Exam: General: obese male in no acute distress Head: NCAT Eyes: PERRL, EOMI, sclera anicteric, conjunctiva pink Neck: supple, trachea midline Lungs: grossly diminshed breath sounds. No wheezes, or rhonchi noted. Heart: RRR +s1 +s2 No murmurs, clicks, or rubs appreciated GI: abdomen soft, obese, non-tender Extremities: warm, peripheral pulses palpable and symmetrical. No calf tenderness or cyanosis Neuro: A&Ox3. No focal deficits. No speech difficulty or abnormality Skin: warm, dry, stage 1 sacral decubitus ulcer - Assessment and Plan (1) Intractable pain Current Visit: Yes Status: Acute Assessment and Plan: Long history of back pain from previous injuries. No other concerning acute finding. Continue home dose of Vicodin Fentanyl for breakthrough pain Continue to monitor (2) Aspiration pneumonia Current Visit: Yes Status: Acute Assessment and Plan: No SOB or cough, afebrile However does have leukocytosis Also positional dependent secretions seen on CT chest Pt has PEG tube in place Continue IV Cefepime and Flagyl with pt's penicillin allergy Repeat CXR in AM (3) C. difficile diarrhea Current Visit: Yes Status: Acute Assessment and Plan: Unclear of onset or duration of treatment Obtain [facility] records Continue po Vanc (4) Pulmonary emboli Current Visit: No Status: Acute Assessment and Plan: Patient's CT with chronic PE in January. Patient might have had IVC filter at [facility] but history is unclear. Obtain [facility] records for this and also C diff (5) Depression Current Visit: Yes Status: Chronic Assessment and Plan: Continue home meds (6) Diabetes Current Visit: Yes Status: Chronic Assessment and Plan: ACHS accuchecks and SSI (7) Chronic indwelling Johnson catheter Current Visit: Yes Status: Acute Assessment and Plan: Patient has chronic indwelling Johnson since [facility] admission. Patient unaware of the reason it is still in place (8) Stage 1 skin ulcer of sacral region Current Visit: Yes Status: Acute Assessment and Plan: wound care consulted DVT Prophylaxis: SQ Heparin - Time Spent with Patient Total time spent is greater than 50% in coordination of care (as documented) at patient's floor/unit and/or counseling patient: Internal Medicine: Result - Labs CBC & Chem 7: 05/07/19 04:57 05/07/19 04:57 Labs: Short CBC 05/07/19 Range/Units 04:57 WBC 13.3 H (4.3-11.1) K/mcL Hgb 9.2 L (12.9-16.9) g/dL Hct 28.9 L (37.5-50.1) % Plt Count 413 H (140-400) K/mcL Neutrophils # 9.4 H (1.6-8.9) K/mcL BMP 05/07/19 04:57 Sodium 130 L Potassium 3.6 Chloride 96 L Carbon Dioxide 29 BUN 10 Creatinine 0.55 L Glucose 231 H Calcium 8.6 Liver Function 05/07/19 Range/Units 04:57 Alkaline Phosphatase 219 H (34-104) Units/L Urine 05/06/19 Range/Units 18:27 Urine Color Yellow (Yellow) Urine Clarity Turbid A (Clear) Urine pH 6.5 (5.0-8.0) pH Units Ur Specific [place] 1.019 (1.010-1.025) Urine Protein 30 H (Neg-Trace) mg/dL Urine Glucose (UA) Normal (Normal) mg/dL - ABG Interpretation ABG results: PT/INR, D-dimer PT 13.4 Seconds (9.4-12.1) H 05/07/19 04:57 <Barrie Ragland - Last Filed: 05/07/19 11:21> (2) Aspiration pneumonia Qualifiers: Aspiration pneumonia type: unspecified Laterality: unspecified laterality Lung location: unspecified part of lung Qualified Code(s): J69.0 - Pneumonitis due to inhalation of food and vomit (3) Pulmonary emboli Qualifiers: Pulmonary embolism type: unspecified Chronicity: acute Acute cor pulmonale presence: without acute cor pulmonale Qualified Code(s): I26.99 - Other pulmonary embolism without acute cor pulmonale (4) Depression Qualifiers: Depression Type: unspecified Qualified Code(s): F32.9 - Major depressive disorder, single episode, unspecified (5) Diabetes Qualifiers: Diabetes mellitus type: type 2 Diabetes mellitus intermediate insulin use: with intermediate use Diabetes mellitus complication detail: with polyneuropathy Qualified Code(s): E11.42 - Type 2 diabetes mellitus with diabetic polyneuropathy; Z79.4 - correction (current) use of insulin (6) Hypertension Qualifiers: Hypertension type: essential hypertension Qualified Code(s): I10 - Essential (primary) hypertension <Memo Tyson - Last Filed: 05/07/19 13:54> (2) Aspiration pneumonia Qualifiers: Aspiration pneumonia type: unspecified Laterality: unspecified laterality Lung location: unspecified part of lung Qualified Code(s): J69.0 - Pneumonitis due to inhalation of food and vomit (4) Pulmonary emboli Qualifiers: Pulmonary embolism type: unspecified Chronicity: acute Acute cor pulmonale presence: without acute cor pulmonale Qualified Code(s): I26.99 - Other pulmonary embolism without acute cor pulmonale (5) Depression Qualifiers: Depression Type: unspecified Qualified Code(s): F32.9 - Major depressive disorder, single episode, unspecified (6) Diabetes Qualifiers: Diabetes mellitus type: type 2 Diabetes mellitus moth exterminator insulin use: with moth exterminator use Diabetes mellitus complication detail: with polyneuropathy Qualified Code(s): E11.42 - Type 2 diabetes mellitus with diabetic polyneuropathy; Z79.4 - correction (current) use of insulin
[2019-05-07] MEDS: Cefepime HCl 2,000 MG in Water for inj. (sterile) 20 ML IVP SCH ×2 (08:33→14:54)
[2019-05-07] MEDS: Lactobacillus 1 EACH CAP.SPRINK GTUBE SCH (08:33)
[2019-05-07] MEDS: Vancomycin Oral Soln 125 MG/2.5 ML UDC GTUBE SCH ×4 (08:35→21:30)
[2019-05-07] MEDS: Insulin LISPRO 300 UNITS/3 ML VIAL SQ SCH ×4 (08:45→22:10)
[2019-05-07] MEDS: *HR* HYDROcodone/Acet 7.5/325 mg TABLET GTUBE PRN ×2 (11:18→21:30)
[2019-05-07] MEDS ORDERED: Furosemide 20 MG TABLET PO PRN (15:37)
[2019-05-07] MEDS ORDERED: traZODone 50 MG TABLET PO SCH (21:00)
[2019-05-07] MEDS: Gabapentin 400 MG CAPSULE PO SCH (21:31)
[2019-05-07] MEDS ORDERED: Budesonide/Formoterol 160/4.5 1 PUFF INH IH SCH (22:00)
[2019-05-08] MEDS: MetroNIDAZOLE 500 MG/100 ML 500 MG/100 ML BAG IVPB SCH ×3 (00:14→15:21)
[2019-05-08] MEDS: Cefepime HCl 2,000 MG in Water for inj. (sterile) 20 ML IVP SCH ×3 (00:14→15:16)
[2019-05-08] MEDS: *HR* HYDROcodone/Acet 7.5/325 mg TABLET GTUBE PRN (05:11)
[2019-05-08] MEDS: *HR* Heparin 5,000 UNIT/ML VIAL SQ SCH (05:11)
[2019-05-08 05:16] LABS: Basophils % 0.5 %; Eosinophils % 12.8 %; Hematocrit 31.7 % (37.5-50.1); Immature Granulocytes % 0.1 % (0-4); Lymphocytes # 1.6 K/mcL (0.6-4.6); Lymphocytes % 19.7 %; Mean Corpuscular HGB Conc 31.5 g/dL (31.6-35.5); Mean Corpuscular Hemoglobin 29.9 pg (28.0-33.3); Mean Corpuscular Volume 94.6 fL (83.0-100.0); Mean Platelet Volume 9.5 fL (9.4-12.4); Monocytes # 0.6 K/mcL (0.0-1.3); Neutrophils # 4.8 K/mcL (1.6-8.9); Platelet Count 426 K/mcL (140-400); Red Blood Count 3.35 M/mcL (4.19-5.50); Red Cell Distribution Width 15.4 % (11.5-14.5); Segmented Neutrophils % 59.9 %
[2019-05-08 05:23] LABS: INR 1.1; Prothrombin Time 12.5 Seconds (9.4-12.1)
[2019-05-08 05:35] LABS: Alkaline Phosphatase 213 Units/L (34-104); BUN/Creatinine Ratio 18 (6-26); Blood Urea Nitrogen 10 mg/dL (8-23); Calcium 8.8 mg/dL (8.6-10.3); Carbon Dioxide 27 mEq/L (23-29); Chloride 96 mEq/L (98-107); Glucose 213 mg/dL (70-105); Osmolality,Calculated 277 (280-300); Potassium 3.8 mEq/L (3.5-5.1); Sodium 131 mEq/L (136-145); eGFR For African Americans > 60 (> 60); eGFR For Non-African Americans > 60 (> 60)
[2019-05-08] MEDS: Insulin LISPRO 300 UNITS/3 ML VIAL SQ SCH ×4 (08:00→21:39)
[2019-05-08] MEDS: Lactobacillus 1 EACH CAP.SPRINK GTUBE SCH (08:01)
[2019-05-08] MEDS: Vancomycin Oral Soln 125 MG/2.5 ML UDC GTUBE SCH ×4 (08:01→21:38)
--- NOTE | 2019-05-08 08:56 | Gastroenterology Progress Note ---
Date of Encounter: 05/08/19 - Time Spent With Patient Total time spent is greater than 50% in coordination of care (as documented) at patient's floor/unit and/or counseling patient: - Constitutional Vitals: Temp Pulse Resp BP Pulse Ox 97.7 F 62 18 102/52 97 05/08/19 07:15 05/08/19 07:15 05/08/19 07:15 05/08/19 07:15 05/08/19 07:15 General appearance: Present: cooperative, A&O X 3, no acute distress, answers questions appropriately Results - Labs CBC & Chem 7: 05/08/19 04:57 05/08/19 04:57 Labs: Last Result 05/08/19 04:57 Calcium 8.8 Entire Visit 05/08/19 05/08/19 04:57 04:57 Hgb 10.0 L Hct 31.7 L PT 12.5 H - ABG ABG results: PT/INR, D-dimer PT 12.5 Seconds (9.4-12.1) H 05/08/19 04:57 Consult Discharge Plan - Plan Referrals: NONE,PCP [Primary Care Provider] -
[2019-05-08] MEDS ORDERED: Loratadine 10 MG TABLET PO SCH (09:00)
[2019-05-08] MEDS ORDERED: Aspirin Enteric Coated 81 MG Tablet PO SCH (09:00)
[2019-05-08] MEDS ORDERED: Gabapentin 300 MG CAPSULE PO SCH (09:00)
--- NOTE | 2019-05-08 09:00 | Internal Med Progress Note ---
<Barrie Ragland - Last Filed: 05/08/19 14:29> Hospitalist Progress Note - Encounter Date of Encounter: 05/08/19 Time of Encounter: 14:40 - Exam Vitals: Temp Pulse Resp BP Pulse Ox 98.1 F 61 18 110/66 97 05/08/19 11:19 05/08/19 11:19 05/08/19 11:19 05/08/19 11:19 05/08/19 11:19 - Assessment and Plan (1) Intractable pain Current Visit: Yes Status: Acute (2) Aspiration pneumonia Current Visit: Yes Status: Acute (3) C. difficile diarrhea Current Visit: Yes Status: Acute (4) Pulmonary emboli Current Visit: No Status: Acute (5) Depression Current Visit: Yes Status: Chronic (6) Diabetes Current Visit: Yes Status: Chronic (7) Chronic indwelling Johnson catheter Current Visit: Yes Status: Acute (8) Stage 1 skin ulcer of sacral region Current Visit: Yes Status: Acute - Time Spent with Patient Total time spent is greater than 50% in coordination of care (as documented) at patient's floor/unit and/or counseling patient: Internal Medicine: Result - Labs CBC & Chem 7: 05/08/19 04:57 05/08/19 04:57 Labs: Short CBC 05/08/19 Range/Units 04:57 WBC 8.0 (4.3-11.1) K/mcL Hgb 10.0 L (12.9-16.9) g/dL Hct 31.7 L (37.5-50.1) % Plt Count 426 H (140-400) K/mcL Neutrophils # 4.8 (1.6-8.9) K/mcL BMP 05/08/19 04:57 Sodium 131 L Potassium 3.8 Chloride 96 L Carbon Dioxide 27 BUN 10 Creatinine 0.55 L Glucose 213 H Calcium 8.8 Liver Function 05/08/19 Range/Units 04:57 Alkaline Phosphatase 213 H (34-104) Units/L - ABG Interpretation ABG results: PT/INR, D-dimer PT 12.5 Seconds (9.4-12.1) H 05/08/19 04:57 - Impressions Impressions Chest X-Ray 05/08/19 09:49 IMPRESSION: No significant change in bilateral pleural fluid. D/ / Cory Hernandez MD / Cory Hernandez MD Interpreting Provider: Cory Hernandez MD Consult Discharge Plan - Plan Referrals: NONE,PCP [Primary Care Provider] - - Attending Attestation I saw evaluated and examined this patient and reviewed objective data including labs and my medical decision-making was reviewed with the Resident Physician, Shelby Schaefer. I agree with the documented findings, disposition and treatment plan as described except to any changes set forth below. We independently had [id number] contact with the patient. Patient is awake and alert. Comfortable. Denies any chest pain or palpitations. Mainly complains of back pain over his decubitus sacral ulcer. Patient has stage 2/3 decubitus ulcer measuring about 4 inches linearly. Consult wound care for further evaluation and recommendations. Continue pressure ulcer prophylactic measures. Pain control. Repeat x-ray done today does not show any clear infiltrate. We will stop Flagyl. Urine cultures growing gram-negative rods and yeast. Continue cefepime for now. Also continue oral vancomycin. Patient has been recommended a tapering course that began on 05/04 per records from [facility]. Also patient is on Coumadin due to history of prior PE and atrial fibrillation. Currently INR is subtherapeutic. Will start Coumadin and Lovenox to bridge. Moderate risk for complications. <Shelby Schaefer L - Last Filed: 05/08/19 16:38> Hospitalist Progress Note - Encounter Date of Encounter: 05/08/19 Time of Encounter: 10:45 - Subjective Interval History: Patient reports that he is feeling well today and is experiencing no pain over bladder. He reports he cannot go home as he cannot walk or care for self. He is experiencing pain at site of sacral decubitus ulcer. He is concerned about this ulcer. Wound care has been consulted. - Exam Vitals: Temp Pulse Resp BP Pulse Ox 97.7 F 62 18 102/52 97 05/08/19 07:15 05/08/19 07:15 05/08/19 07:15 05/08/19 07:15 05/08/19 07:15 Exam: GENERAL: awake, conversant. No acute distress. NEUROLOGICAL: CN II-XII grossly intact. EYES: anicteric, clear sclerae. Pupils equal and reactive to light bilaterally HENT: normocephalic, atraumatic. Moist mucosa NECK: no carotid bruits heard CV: regular rate and rhythm. Normal S1 and S2. No murmurs, clicks, or gallops RESPIRATORY: clear to auscultation bilaterally. ABDOMEN: RUQ tenderness. Nontender otherwise. Normal bowel sounds EXTREMITIES: no edema. Peripheral pulses 2+/4. SKIN: no lesions, rashes. Stage II or III sacral decubitus ulcer present. - Assessment and Plan (1) Intractable pain Current Visit: Yes Status: Acute Assessment and Plan: Patient has long history of back pain from previous injuries. -Has no other concerning acute findings. -Continue home dose of Vicodin -Fentanyl d/c'd for breakthrough pain -Continuing to monitor (2) Aspiration pneumonia Current Visit: Yes Status: Acute Assessment and Plan: Patient's leukocytosis is resolved at this time, at 8.0. -CT showed positional-dependent secretions -Has PEG tube -CXR today showed no significant changes in bilateral pleural fluid -Flagyl has been discontinued. -Continue cefepime (3) Sacral decubitus ulcer, stage III Current Visit: Yes Status: Acute Assessment and Plan: Wound care has been consulted. -Spoke to Wound care and they will be putting in recommendations this afternoon (4) C. difficile diarrhea Current Visit: Yes Status: Acute Assessment and Plan: -continue PO vancomycin (5) Depression Current Visit: Yes Status: Chronic Assessment and Plan: Continue home medications (6) Diabetes Current Visit: Yes Status: Chronic Assessment and Plan: Continue accuchecks and SSI (7) History of pulmonary embolus (PE) Current Visit: Yes Status: Acute Assessment and Plan: Currently on heparin -Subtherapeutic INR on home Coumadin -Bridging on Coumadin and Lovenox (8) Indwelling Johnson catheter present Current Visit: Yes Status: Acute Assessment and Plan: UA showed elevated protein, blood, leukocyte esterase, WBCs, yeast, and positive nitrites. -Preliminary urine culture results show gram-negative rods and yeast -Will await final results. -Continue cefepime and vancomycin until sensitivity is known DVT Prophylaxis: Currently on SQ heparin - Time Spent with Patient Total time spent is greater than 50% in coordination of care (as documented) at patient's floor/unit and/or counseling patient: Internal Medicine: Result - Labs CBC & Chem 7: 05/08/19 04:57 05/08/19 04:57 Labs: Short CBC 05/08/19 Range/Units 04:57 WBC 8.0 (4.3-11.1) K/mcL Hgb 10.0 L (12.9-16.9) g/dL Hct 31.7 L (37.5-50.1) % Plt Count 426 H (140-400) K/mcL Neutrophils # 4.8 (1.6-8.9) K/mcL BMP 05/08/19 04:57 Sodium 131 L Potassium 3.8 Chloride 96 L Carbon Dioxide 27 BUN 10 Creatinine 0.55 L Glucose 213 H Calcium 8.8 Liver Function 05/08/19 Range/Units 04:57 Alkaline Phosphatase 213 H (34-104) Units/L - ABG Interpretation ABG results: PT/INR, D-dimer PT 12.5 Seconds (9.4-12.1) H 05/08/19 04:57 <Barrie Ragland - Last Filed: 05/08/19 14:29> (2) Aspiration pneumonia Qualifiers: Aspiration pneumonia type: unspecified Laterality: unspecified laterality Lung location: unspecified part of lung Qualified Code(s): J69.0 - Pneumonitis due to inhalation of food and vomit (4) Pulmonary emboli Qualifiers: Pulmonary embolism type: unspecified Chronicity: acute Acute cor pulmonale presence: without acute cor pulmonale Qualified Code(s): I26.99 - Other pulmonary embolism without acute cor pulmonale (5) Depression Qualifiers: Depression Type: unspecified Qualified Code(s): F32.9 - Major depressive disorder, single episode, unspecified (6) Diabetes Qualifiers: Diabetes mellitus type: type 2 Diabetes mellitus terminal gauger insulin use: with chcf use Diabetes mellitus complication detail: with polyneuropathy Qualified Code(s): E11.42 - Type 2 diabetes mellitus with diabetic polyneuropathy; Z79.4 - terminal carman (current) use of insulin <Shelby Schaefer - Last Filed: 05/08/19 16:38> (2) Aspiration pneumonia Qualifiers: Aspiration pneumonia type: unspecified Laterality: unspecified laterality Lung location: unspecified part of lung Qualified Code(s): J69.0 - Pneumonitis due to inhalation of food and vomit (5) Depression Qualifiers: Depression Type: unspecified Qualified Code(s): F32.9 - Major depressive disorder, single episode, unspecified (6) Diabetes Qualifiers: Diabetes mellitus type: type 2 Diabetes mellitus chcf insulin use: with terminal gauger use Diabetes mellitus complication detail: with polyneuropathy Qualified Code(s): E11.42 - Type 2 diabetes mellitus with diabetic polyneuropathy; Z79.4 - terminal carman (current) use of insulin
[2019-05-08] MEDS: *HR* HYDROcodone/Acet 7.5/325 mg TABLET GTUBE SCH ×2 (11:25→18:13)
[2019-05-08] MEDS ORDERED: Warfarin perPT GTUBE PRN (18:00)
[2019-05-08] MEDS ORDERED: *HR* Warfarin 5 MG TABLET GTUBE ONE (18:00)
[2019-05-08] MEDS: *HR* Enoxaparin 100 MG/ML SYRINGE SQ SCH (18:20)
[2019-05-08] MEDS: traZODone 50 MG TABLET GTUBE SCH (21:38)
[2019-05-08] MEDS: Melatonin 3 MG TABLET GTUBE SCH (21:38)
[2019-05-09] MEDS: *HR* HYDROcodone/Acet 7.5/325 mg TABLET GTUBE SCH ×4 (00:41→17:56)
[2019-05-09] MEDS: Cefepime HCl 2,000 MG in Water for inj. (sterile) 20 ML IVP SCH ×3 (00:41→16:41)
[2019-05-09 04:56] LABS: Basophils # 0.1 K/mcL (0.0-0.2); Basophils % 0.9 %; Eosinophils # 1.4 K/mcL (0.0-0.6); Eosinophils % 17.9 %; Hematocrit 28.5 % (37.5-50.1); Hemoglobin 9.2 g/dL (12.9-16.9); Immature Granulocytes % 0.3 % (0-4); Lymphocytes % 25.7 %; Mean Corpuscular HGB Conc 32.3 g/dL (31.6-35.5); Mean Corpuscular Hemoglobin 29.8 pg (28.0-33.3); Mean Corpuscular Volume 92.2 fL (83.0-100.0); Mean Platelet Volume 9.9 fL (9.4-12.4); Monocytes # 0.7 K/mcL (0.0-1.3); Monocytes % 8.8 %; Neutrophils # 3.6 K/mcL (1.6-8.9); Platelet Count 480 K/mcL (140-400); Red Blood Count 3.09 M/mcL (4.19-5.50); Red Cell Distribution Width 15.4 % (11.5-14.5); Segmented Neutrophils % 46.4 %; White Blood Count 7.6 K/mcL (4.3-11.1)
[2019-05-09 05:05] LABS: INR 1.1
[2019-05-09 05:15] LABS: BUN/Creatinine Ratio 28 (6-26); Blood Urea Nitrogen 15 mg/dL (8-23); Calcium 8.9 mg/dL (8.6-10.3); Carbon Dioxide 30 mEq/L (23-29); Chloride 98 mEq/L (98-107); Glucose 248 mg/dL (70-105); Osmolality,Calculated 283 (280-300); Potassium 3.8 mEq/L (3.5-5.1); Sodium 132 mEq/L (136-145); eGFR For African Americans > 60 (> 60); eGFR For Non-African Americans > 60 (> 60)
[2019-05-09] MEDS: *HR* Enoxaparin 100 MG/ML SYRINGE SQ SCH ×2 (05:49→17:56)
[2019-05-09] MEDS ORDERED: Gabapentin 100 MG CAPSULE PO SCH (09:00)
--- NOTE | 2019-05-09 09:00 | Internal Med Progress Note ---
<DomboazBarrie - Last Filed: 05/09/19 14:02> Hospitalist Progress Note - Encounter Date of Encounter: 05/09/19 Time of Encounter: 14:04 - Exam Vitals: Temp Pulse Resp BP Pulse Ox 98 F 63 17 118/71 97 05/09/19 11:58 05/09/19 11:58 05/09/19 11:58 05/09/19 08:17 05/09/19 11:58 - Assessment and Plan (1) Intractable pain Current Visit: Yes Status: Acute (2) Aspiration pneumonia Current Visit: Yes Status: Acute (3) C. difficile diarrhea Current Visit: Yes Status: Acute (4) Pulmonary emboli Current Visit: No Status: Acute (5) Depression Current Visit: Yes Status: Chronic (6) Diabetes Current Visit: Yes Status: Chronic (7) Chronic indwelling Johnson catheter Current Visit: Yes Status: Acute (8) Stage 1 skin ulcer of sacral region Current Visit: Yes Status: Acute - Time Spent with Patient Total time spent is greater than 50% in coordination of care (as documented) at patient's floor/unit and/or counseling patient: Internal Medicine: Result - Labs CBC & Chem 7: 05/09/19 04:27 05/09/19 04:27 Labs: Short CBC 05/09/19 Range/Units 04:27 WBC 7.6 (4.3-11.1) K/mcL Hgb 9.2 L (12.9-16.9) g/dL Hct 28.5 L (37.5-50.1) % Plt Count 480 H (140-400) K/mcL Neutrophils # 3.6 (1.6-8.9) K/mcL BMP 05/09/19 04:27 Sodium 132 L Potassium 3.8 Chloride 98 Carbon Dioxide 30 H BUN 15 Creatinine 0.53 L Glucose 248 H Calcium 8.9 - ABG Interpretation ABG results: PT/INR, D-dimer PT 13.0 Seconds (9.4-12.1) H 05/09/19 04:27 Consult Discharge Plan - Plan Referrals: NONE,PCP [Primary Care Provider] - - Attending Attestation I saw evaluated and examined this patient and reviewed objective data including labs and my medical decision-making was reviewed with the Resident Physician, Shelby Schaefer. I agree with the documented findings, disposition and treatment plan as described except to any changes set forth below. We independently had [id number] contact with the patient. Patient lying down in bed. Continues to have lower back pain at site of decubitus ulcer. Denies any chest pain or palpitations. Diarrhea improving. Urine cultures positive for Pseudomonas and yeast. Will replace Johnson catheter if it has not been exchanged during this hospitalization. Will change antibioti c to Levaquin. Ciprofloxacin to complete treatment course. Wound care has evaluated patient for sacral decubitus ulcer and given recommendations. general utility worker working on appropriate discharge plan for the patient. We will continue oral vancomycin to complete tapering course for his C. difficile colitis. This was diagnosed as outpatient. C. difficile study here was negative but patient will finish complete treatment course. Continue Lovenox plus Coumadin until INR greater than 2. Continue tube feeds. Anemia is chronic and stable. Blood sugars are well controlled. <Shelby Schaefer - Last Filed: 05/09/19 19:51> Hospitalist Progress Note - Encounter Date of Encounter: 05/09/19 - Subjective Interval History: Did not see patient today. Wound care has given recommendations for stage III sacral decubitus ulcer. Social work and pillowcase cleaner are coordinating for discharge to [facility]. Currently anticipating discharge to [place]. - Exam Vitals: Temp Pulse Resp BP Pulse Ox 98.1 F 67 15 118/71 98 05/09/19 08:17 05/09/19 08:17 05/09/19 08:17 05/09/19 08:17 05/09/19 08:17 Exam: Patient was not examined today. - Assessment and Plan (1) Intractable pain Current Visit: Yes Status: Acute Assessment and Plan: Pain medications have been discontinued. Patient may have small quantity of Dilaudid for pain control. (2) Indwelling Johnson catheter present Current Visit: Yes Status: Acute Assessment and Plan: Urine culture grew pansensitive Pseudomonas. Patient is started on ciprofloxacin 500 mg twice a day for 10 days Recommend Johnson catheter change before discharge. (3) Aspiration pneumonia Current Visit: Yes Status: Ruled-out Assessment and Plan: Leukocytosis has resolved at this time, at 7.6 Flagyl has been discontinued. Continue cefepime (4) Sacral decubitus ulcer, stage III Current Visit: Yes Status: Acute Assessment and Plan: Wound care has given recommendations. Calcium alginate dressings have been started. (5) C. difficile diarrhea Current Visit: Yes Status: Acute Assessment and Plan: Continue oral vancomycin (6) Depression Current Visit: Yes Status: Chronic Assessment and Plan: Continue home medications. (7) Diabetes Current Visit: Yes Status: Chronic Assessment and Plan: Continue Accu-Cheks and SSI (8) History of pulmonary embolus (PE) Current Visit: Yes Status: Acute Assessment and Plan: Currently on heparin Subtherapeutic INR on home Coumadin Bridging on Coumadin and Lovenox DVT Prophylaxis: Currently on SQ heparin - Time Spent with Patient Total time spent is greater than 50% in coordination of care (as documented) at patient's floor/unit and/or counseling patient: Internal Medicine: Result - Labs CBC & Chem 7: 05/09/19 04:27 05/09/19 04:27 Labs: Short CBC 05/09/19 Range/Units 04:27 WBC 7.6 (4.3-11.1) K/mcL Hgb 9.2 L (12.9-16.9) g/dL Hct 28.5 L (37.5-50.1) % Plt Count 480 H (140-400) K/mcL Neutrophils # 3.6 (1.6-8.9) K/mcL BMP 05/09/19 04:27 Sodium 132 L Potassium 3.8 Chloride 98 Carbon Dioxide 30 H BUN 15 Creatinine 0.53 L Glucose 248 H Calcium 8.9 - ABG Interpretation ABG results: PT/INR, D-dimer PT 13.0 Seconds (9.4-12.1) H 05/09/19 04:27 - Impressions Impressions Chest X-Ray 05/08/19 09:49 IMPRESSION: No significant change in bilateral pleural fluid. D/ / Cory Hernandez MD / Cory Hernandez MD Interpreting Provider: Cory Hernandez MD <Barrie Ragland - Last Filed: 05/09/19 14:02> (2) Aspiration pneumonia Qualifiers: Aspiration pneumonia type: unspecified Laterality: unspecified laterality Lung location: unspecified part of lung Qualified Code(s): J69.0 - Pneumonitis due to inhalation of food and vomit (4) Pulmonary emboli Qualifiers: Pulmonary embolism type: unspecified Chronicity: acute Acute cor pulmonale presence: without acute cor pulmonale Qualified Code(s): I26.99 - Other pulmonary embolism without acute cor pulmonale (5) Depression Qualifiers: Depression Type: unspecified Qualified Code(s): F32.9 - Major depressive disorder, single episode, unspecified (6) Diabetes Qualifiers: Diabetes mellitus type: type 2 Diabetes mellitus dedicated intermodal truck driver insulin use: with intermediate use Diabetes mellitus complication detail: with polyneuropathy Qualified Code(s): E11.42 - Type 2 diabetes mellitus with diabetic polyneuropathy; Z79.4 - termite treater helper (current) use of insulin <Shelby Schaefer - Last Filed: 05/09/19 19:51> (3) Aspiration pneumonia Qualifiers: Aspiration pneumonia type: unspecified Laterality: unspecified laterality Lung location: unspecified part of lung Qualified Code(s): J69.0 - Pneumonitis due to inhalation of food and vomit (6) Depression Qualifiers: Depression Type: unspecified Qualified Code(s): F32.9 - Major depressive disorder, single episode, unspecified (7) Diabetes Qualifiers: Diabetes mellitus type: type 2 Diabetes mellitus dedicated intermodal truck driver insulin use: with dedicated intermodal truck driver use Diabetes mellitus complication detail: with polyneuropathy Qualified Code(s): E11.42 - Type 2 diabetes mellitus with diabetic polyneuropathy; Z79.4 - intermediate (current) use of insulin
[2019-05-09] MEDS: Insulin LISPRO 300 UNITS/3 ML VIAL SQ SCH ×4 (09:26→21:08)
[2019-05-09] MEDS: Loratadine 10 MG TABLET GTUBE SCH (09:28)
[2019-05-09] MEDS: Lactobacillus 1 EACH CAP.SPRINK GTUBE SCH (09:28)
[2019-05-09] MEDS: Aspirin 81 MG TAB.CHEW GTUBE SCH (09:28)
[2019-05-09] MEDS: Gabapentin 100 MG CAPSULE GTUBE SCH ×3 (09:28→21:08)
[2019-05-09] MEDS: Vancomycin Oral Soln 125 MG/2.5 ML UDC GTUBE SCH ×4 (09:30→21:09)
[2019-05-09] MEDS: *HR* HYDROmorphone 2 MG TABLET GTUBE PRN ×2 (12:12→18:03)
[2019-05-09 17:27] LABS: Alkaline Phosphatase 199 U/L (40-120); Alkaline Phosphatase Bone 30 U/L (0-55)
[2019-05-09] MEDS ORDERED: *HR* Warfarin 5 MG TABLET GTUBE ONE (18:00)
[2019-05-09] MEDS: Melatonin 3 MG TABLET GTUBE SCH (21:08)
[2019-05-09] MEDS: traZODone 50 MG TABLET GTUBE SCH (21:08)
[2019-05-10] MEDS: *HR* HYDROmorphone 2 MG TABLET GTUBE PRN ×3 (00:02→20:23)
[2019-05-10] MEDS: Cefepime HCl 2,000 MG in Water for inj. (sterile) 20 ML IVP SCH ×2 (00:02→10:29)
[2019-05-10] MEDS: *HR* HYDROcodone/Acet 7.5/325 mg TABLET GTUBE SCH ×5 (00:02→23:58)
[2019-05-10 05:15] LABS: Basophils # 0.1 K/mcL (0.0-0.2); Basophils % 0.8 %; Eosinophils # 1.3 K/mcL (0.0-0.6); Eosinophils % 15.6 %; Hematocrit 28.7 % (37.5-50.1); Immature Granulocytes % 0.3 % (0-4); Lymphocytes # 2.4 K/mcL (0.6-4.6); Lymphocytes % 27.9 %; Mean Corpuscular HGB Conc 31.4 g/dL (31.6-35.5); Mean Corpuscular Hemoglobin 29.1 pg (28.0-33.3); Mean Corpuscular Volume 92.9 fL (83.0-100.0); Monocytes # 0.8 K/mcL (0.0-1.3); Monocytes % 9.8 %; Neutrophils # 3.9 K/mcL (1.6-8.9); Platelet Count 478 K/mcL (140-400); Red Blood Count 3.09 M/mcL (4.19-5.50); Red Cell Distribution Width 15.4 % (11.5-14.5); Segmented Neutrophils % 45.6 %; White Blood Count 8.6 K/mcL (4.3-11.1)
[2019-05-10 05:24] LABS: INR 1.2; Prothrombin Time 13.2 Seconds (9.4-12.1)
[2019-05-10 05:34] LABS: BUN/Creatinine Ratio 27 (6-26); Blood Urea Nitrogen 14 mg/dL (8-23); Calcium 8.8 mg/dL (8.6-10.3); Carbon Dioxide 29 mEq/L (23-29); Chloride 98 mEq/L (98-107); Glucose 242 mg/dL (70-105); Osmolality,Calculated 282 (280-300); Potassium 3.9 mEq/L (3.5-5.1); Sodium 132 mEq/L (136-145); eGFR For African Americans > 60 (> 60); eGFR For Non-African Americans > 60 (> 60)
[2019-05-10] MEDS: *HR* Enoxaparin 100 MG/ML SYRINGE SQ SCH ×2 (05:43→18:23)
[2019-05-10] MEDS: Insulin LISPRO 300 UNITS/3 ML VIAL SQ SCH ×6 (09:30→23:01)
[2019-05-10] MEDS: Lactobacillus 1 EACH CAP.SPRINK GTUBE SCH (10:30)
[2019-05-10] MEDS: Vancomycin Oral Soln 125 MG/2.5 ML UDC GTUBE SCH ×2 (10:31→22:11)
[2019-05-10] MEDS: Loratadine 10 MG TABLET GTUBE SCH (10:33)
[2019-05-10] MEDS: Aspirin 81 MG TAB.CHEW GTUBE SCH (10:33)
[2019-05-10] MEDS: Gabapentin 100 MG CAPSULE GTUBE SCH ×3 (10:33→22:09)
[2019-05-10 11:00] LABS: Alkaline Phosphatase Liver 169 U/L (0-94); Alkaline Phosphatase Other 0 U/L
--- NOTE | 2019-05-10 12:18 | Discharge Summary ---
<Shelby Schaefer - Last Filed: 05/10/19 13:01> - NOTES TO OUTPATIENT PROVIDER Notes to Outpatient Provider: Patient is currently on ciprofloxacin for pseudomonal UTI. He is also covered by PO vancomycin for C diff colitis history. He currently has a stage III sacral decubitus ulcer which is being dressed with calcium alginate dressings. Date of Encounter: 05/10/19 Time of Encounter: 12:15 - Discharge Diagnosis (1) Intractable pain Priority: Primary Status: Acute (2) Indwelling Johnson catheter present Priority: Secondary Status: Acute (3) Aspiration pneumonia Priority: Secondary Status: Ruled-out Qualifiers: Aspiration pneumonia type: unspecified Laterality: unspecified laterality Lung location: unspecified part of lung Qualified Code(s): J69.0 - Pneumonitis due to inhalation of food and vomit (4) Sacral decubitus ulcer, stage III Priority: Secondary Status: Acute (5) C. difficile diarrhea Priority: Secondary Status: Acute (6) Depression Priority: Secondary Status: Chronic Qualifiers: Depression Type: unspecified Qualified Code(s): F32.9 - Major depressive disorder, single episode, unspecified (7) Diabetes Priority: Secondary Status: Chronic Qualifiers: Diabetes mellitus type: type 2 Diabetes mellitus residential insulin use: with residential use Diabetes mellitus complication detail: with polyneuropathy Qualified Code(s): E11.42 - Type 2 diabetes mellitus with diabetic polyneuropathy; Z79.4 - jail (current) use of insulin (8) History of pulmonary embolus (PE) Priority: Secondary Status: Acute Hospital course: Mr. Toure is a 63 year old male with past medical history of COPD, diabetes, CVA, hypertension, CAD, wheelchair for past 4 years, and history C. difficile colitis who presented to hospital for intractable pain and concern for pneumonia. He h ad been in the [facility] this for 3 months previously. He recently had a fall in the parking lot. Labs showed leukocytosis, normal pro-calcitonin. CT chest showed possible aspiration pneumonia, tracheobronchial secretions. Patient was covered with vancomycin, cefepime, Flagyl. Repeat chest x-ray showed no significant changes in bilateral pleural fluid. Aspiration pneumonia was ruled out and Flagyl was discontinued. Urine culture grew Pseudomonas aeruginosa and yeast species. Patient was put on ciprofloxacin and Johnson catheter was changed. Patient additionally was found to have stage III sacral decubitus ulcer wound care was consulted and patient received calcium alginate dressings. Patient was advised that current functional status suggested he should be discharged to [facility]. Patient was very resistant to this plan due to previous experiences. Suggested patient be discharged to [place] [facility] for rehabilitation but patient was resistant to this plan. Discussed with patient that best outcome will happen if he transitions from hospital to [facility] but patient would still prefer to be discharged home. Patient plans to ask friends to be with him while melba is at work so that he will be supervised. - Time Spent with Patient Total time spent providing and/or coordinating discharge services: - Discharge Medications Prescriptions: New Vancomycin Oral Soln [Firvanq] 125 mg GTUBE BID udc Atenolol [Tenormin] 25 mg GTUBE BID tablet Isosorbide DInitrate [Isordil] 20 mg PO 0800,1800 tablet Ciprofloxacin [Cipro] 500 mg PO BIDAC tablet Continued Cetirizine HCl [All Day Allergy] 10 mg PO DAILY PRN PRN Reason: allergies Insulin Glargine,Hum.rec.anlog [Lantus Solostar] 20 unit SQ HS Insulin ASPART [NovoLOG] 0 unit SQ TIDWM Aspirin Enteric Coated [Aspirin EC] 81 mg PO DAILY traZODone [TraZODone] 100 mg PO HS Citalopram Hydrobromide [Citalopram HBr] 40 mg PO HS Clorazepate Dipotassium 15 mg PO BID Furosemide [Lasix] 20 mg PO DAILY PRN PRN Reason: SWELLING Ondansetron ODT [Zofran ODT] 4 mg SL Q6HR PRN #8 tab.rapdis PRN Reason: Nausea Warfarin [Coumadin] 5 mg PO DAILY Lactobacillus Acidophilus [Acidophilus Lactobacilli] 1 cap PO DAILY Atenolol [Tenormin] 50 mg PO DAILY Enoxaparin [Lovenox] 40 mg SQ Q12H Gabapentin [Neurontin] 200 mg PO TID HYDROcodone/Acet 7.5/325 mg [[place] 7.5-325 mg] 1 tab PO Q6H Isosorbide DInitrate [Isordil] 20 mg PO TIDAC Melatonin [Melatin] 6 mg PO HS Multivitamin [Daily Multiple Vitamin] 1 tab PO DAILY Sodium Chloride [Sodium Chloride Tab] 1 gm PO TID Nitroglycerin [Nitrostat] 0.4 mg SL Q5MIN Acetaminophen [Non-Aspirin] 650 mg PO Q6H PRN PRN Reason: Pain guaiFENesin [Guaifenesin] 400 mg PO Q12H PRN PRN Reason: Cough No Action Vancomycin Oral Soln [Firvanq] 125 mg PO QID Home Medications: Aspirin Enteric Coated [Aspirin EC] 81 mg PO DAILY 04/19/18 [History] Cetirizine HCl [All Day Allergy] 10 mg PO DAILY PRN 04/19/18 [History] Citalopram Hydrobromide [Citalopram HBr] 40 mg PO HS 04/19/18 [History] Clorazepate Dipotassium 15 mg PO BID 04/19/18 [History] Insulin ASPART [NovoLOG] 0 unit SQ TIDWM 04/19/18 [History] Insulin Glargine,Hum.rec.anlog [Lantus Solostar] 20 unit SQ HS 04/19/18 [History] traZODone [TraZODone] 100 mg PO HS 04/19/18 [History] Furosemide [Lasix] 20 mg PO DAILY PRN 09/20/18 [History] Ondansetron ODT [Zofran ODT] 4 mg SL Q6HR PRN #8 tab.rapdis 10/27/18 [Rx] Acetaminophen [Non-Aspirin] 650 mg PO Q6H PRN 05/08/19 [History] Atenolol [Tenormin] 50 mg PO DAILY 05/08/19 [History] Enoxaparin [Lovenox] 40 mg SQ Q12H 05/08/19 [History] Gabapentin [Neurontin] 200 mg PO TID 05/08/19 [History] HYDROcodone/Acet 7.5/325 mg [[place] 7.5-325 mg] 1 tab PO Q6H 05/08/19 [History] Isosorbide DInitrate [Isordil] 20 mg PO TIDAC 05/08/19 [History] Lactobacillus Acidophilus [Acidophilus Lactobacilli] 1 cap PO DAILY 05/08/19 [History] Melatonin [Melatin] 6 mg PO HS 05/08/19 [History] Multivitamin [Daily Multiple Vitamin] 1 tab PO DAILY 05/08/19 [History] Nitroglycerin [Nitrostat] 0.4 mg SL Q5MIN 05/08/19 [History] Sodium Chloride [Sodium Chloride Tab] 1 gm PO TID 05/08/19 [History] Vancomycin Oral Soln [Firvanq] 125 mg PO QID 05/08/19 [History] Warfarin [Coumadin] 5 mg PO DAILY 05/08/19 [History] guaiFENesin [Guaifenesin] 400 mg PO Q12H PRN 05/08/19 [History] Atenolol [Tenormin] 25 mg GTUBE BID tablet 05/10/19 [Rx] Ciprofloxacin [Cipro] 500 mg PO BIDAC tablet 05/10/19 [Rx] Isosorbide DInitrate [Isordil] 20 mg PO 0800,1800 tablet 05/10/19 [Rx] Vancomycin Oral Soln [Firvanq] 125 mg GTUBE BID udc 05/10/19 [Rx] Allergies/Adverse Reactions: Allergy/AdvReac Type Severity Reaction Status Date / Time Penicillins [PCN] Allergy See Verified 10/26/18 23:51 Comments Date of admission: 05/07/19 11:36 Primary care physician: PCP NONE Consults: 05/05/19 08:56 Consult to Occupational Therapy [CONS] Routine Comment: Evaluate, develop and implement POC Reason for Consult: improve mobility, discharge planning Does patient have active BEDREST order?: No Is patient medically & hemodynamically stable?: Yes Consult to Executive Staff Assistant [CONS] Routine Reason for SW Consult: no pcp 05/05/19 08:57 Consult to Physical Therapy [CONS] Routine Comment: Evaluate, develop and implement POC Reason for Consult: improve mobility, discharge planning Does patient have active BEDREST order?: No Is patient medically & hemodynamically stable?: Yes 05/05/19 10:20 Consult to Gastroenterology [CONS] Routine Consulting Provider: Gastroenterology Terrie Reason for Consult: posterior mediastinal mass Call Completed: Yes 05/05/19 10:37 consult to preformer impregnated fabrics [Consult to Nutrition] [CONS] Routine Comment: Consulting Provider: NUTRITION Reason for Dietary Consult: Other Tube Feed Start & Manage Other:: PEG 05/05/19 17:29 Consult to Executive Staff Assistant [CONS] Routine Reason for SW Consult: Safety concerns with patient returning home - patient has concerns regarding previous ECF stay, please see RNCM note for details. PT/OT recommending SNF. 05/06/19 12:40 Consult to Wound Care [CONS] Routine Reason for Consult: Wound to the coccyx - Call Completed: No Discharging clinician: Shelby Schaefer Anticipated date of discharge: 05/10/19 - Constitutional Vitals: Temp Pulse Resp BP Pulse Ox 98.2 F 73 17 127/70 95 05/10/19 10:20 05/10/19 10:20 05/10/19 10:20 05/10/19 10:20 05/10/19 10:20 Exam: GENERAL: Awake, conversant. Somewhat agitated. EYES: Anicteric, clear sclerae. Pupils equal and reactive to light bilaterally. HENT: Atraumatic, normocephalic. Moist mucosa NECK: Normal carotid pulses. Supple. CV: Regular rate and rhythm. Normal S1 and S2. No murmurs, clicks, gallops RESPIRATORY: Clear to auscultation bilaterally. No wheezes, rhonchi, rales ABDOMEN: Soft, nontender, nondistended. Normal bowel sounds heard. EXTREMITIES: Nonpitting edema bilaterally. Peripheral pulses 2+/4. Capillary refill<2s SKIN: Warm and dry. No lesions or rashes - Patient Status Disposition: Home, Self-Care Condition: Good Functional capacity at discharge: wheelchair bound Overall status at discharge: patient is back to baseline - Discharge Instructions Follow Up With: NONE,PCP [Primary Care Provider] - - Diet and Activity Activity: resume usual activities as tolerated Diet: advance to your usual diet <Diego Richard - Last Filed: 05/10/19 18:08> Date of Encounter: 05/10/19 - Discharge Diagnosis (1) Intractable pain Status: Acute (2) Aspiration pneumonia Status: Ruled-out Qualifiers: Aspiration pneumonia type: unspecified Laterality: unspecified laterality Lung location: unspecified part of lung Qualified Code(s): J69.0 - Pneumonitis due to inhalation of food and vomit (3) C. difficile diarrhea Status: Acute (4) Pulmonary emboli Status: Acute Qualifiers: Pulmonary embolism type: unspecified Chronicity: acute Acute cor pulmonale presence: without acute cor pulmonale Qualified Code(s): I26.99 - Other pulmonary embolism without acute cor pulmonale (5) Depression Status: Chronic Qualifiers: Depression Type: unspecified Qualified Code(s): F32.9 - Major depressive disorder, single episode, unspecified (6) Diabetes Status: Chronic Qualifiers: Diabetes mellitus type: type 2 Diabetes mellitus residential insulin use: with residential use Diabetes mellitus complication detail: with polyneuropathy Qualified Code(s): E11.42 - Type 2 diabetes mellitus with diabetic polyneuropathy; 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 Toure is a 63 year old male - Time Spent with Patient Total time spent providing and/or coordinating discharge services: Date of admission: 05/07/19 11:36 Primary care physician: PCP NONE Consults: 05/05/19 08:56 Consult to Occupational Therapy [CONS] Routine Comment: Evaluate, develop and implement POC Reason for Consult: improve mobility, discharge planning Does patient have active BEDREST order?: No Is patient medically & hemodynamically stable?: Yes Consult to Executive Staff Assistant [CONS] Routine Reason for SW Consult: no pcp 05/05/19 08:57 Consult to Physical Therapy [CONS] Routine Comment: Evaluate, develop and implement POC Reason for Consult: improve mobility, discharge planning Does patient have active BEDREST order?: No Is patient medically & hemodynamically stable?: Yes 05/05/19 10:20 Consult to Gastroenterology [CONS] Routine Consulting Provider: Gastroenterology Terrie Reason for Consult: posterior mediastinal mass Call Completed: Yes 05/05/19 10:37 consult to preformer impregnated fabrics [Consult to Nutrition] [CONS] Routine Comment: Consulting Provider: NUTRITION Reason for Dietary Consult: Other Tube Feed Start & Manage Other:: PEG 05/05/19 17:29 Consult to Executive Staff Assistant [CONS] Routine Reason for SW Consult: Safety concerns with patient returning home - patient has concerns regarding previous ECF stay, please see RNCM note for details. PT/OT recommending SNF. 05/06/19 12:40 Consult to Wound Care [CONS] Routine Reason for Consult: Wound to the coccyx - Call Completed: No - Constitutional Vitals: Temp Pulse Resp BP Pulse Ox 97.6 F 68 17 104/49 95 05/10/19 16:11 05/10/19 16:11 05/10/19 16:11 05/10/19 16:11 05/10/19 16:11 - Attending Attestation I saw evaluated and examined this patient and reviewed objective data including labs and my medical decision-making was reviewed with the Resident Physician. I agree with the documented findings, disposition and treatment plan as described except to any changes set forth below. We independently had fxam-go-oftf contact with the patient.
[2019-05-10] MEDS ORDERED: *HR* Warfarin 7.5 MG TABLET GTUBE ONE (18:00)
[2019-05-10] MEDS ORDERED: Vancomycin Oral Soln 125 MG/2.5 ML UDC GTUBE SCH (21:00)
[2019-05-10] MEDS: Melatonin 3 MG TABLET GTUBE SCH (22:09)
[2019-05-10] MEDS: traZODone 50 MG TABLET GTUBE SCH (22:09)
[2019-05-10] MEDS: Insulin DETEMIR 100 UNIT/ML X5UNITS SQ SCH (22:11)
[2019-05-11] MEDS: *HR* HYDROmorphone 2 MG TABLET GTUBE PRN ×3 (04:43→17:35)
[2019-05-11 05:05] LABS: Basophils % 0.5 %; Eosinophils # 0.9 K/mcL (0.0-0.6); Eosinophils % 10.4 %; Hematocrit 28.6 % (37.5-50.1); Immature Granulocytes % 0.4 % (0-4); Lymphocytes # 2.4 K/mcL (0.6-4.6); Lymphocytes % 28.8 %; Mean Corpuscular HGB Conc 31.5 g/dL (31.6-35.5); Mean Corpuscular Hemoglobin 29.5 pg (28.0-33.3); Mean Corpuscular Volume 93.8 fL (83.0-100.0); Mean Platelet Volume 9.2 fL (9.4-12.4); Monocytes # 0.8 K/mcL (0.0-1.3); Monocytes % 9.7 %; Neutrophils # 4.2 K/mcL (1.6-8.9); Platelet Count 488 K/mcL (140-400); Red Blood Count 3.05 M/mcL (4.19-5.50); Red Cell Distribution Width 15.4 % (11.5-14.5); Segmented Neutrophils % 50.2 %; White Blood Count 8.4 K/mcL (4.3-11.1)
[2019-05-11 05:14] LABS: INR 1.1; Prothrombin Time 12.8 Seconds (9.4-12.1)
[2019-05-11 05:26] LABS: BUN/Creatinine Ratio 22 (6-26); Blood Urea Nitrogen 11 mg/dL (8-23); Calcium 8.6 mg/dL (8.6-10.3); Carbon Dioxide 32 mEq/L (23-29); Chloride 96 mEq/L (98-107); Glucose 286 mg/dL (70-105); Osmolality,Calculated 284 (280-300); Sodium 132 mEq/L (136-145); eGFR For African Americans > 60 (> 60); eGFR For Non-African Americans > 60 (> 60)
[2019-05-11] MEDS: *HR* Enoxaparin 100 MG/ML SYRINGE SQ SCH ×2 (06:10→17:35)
[2019-05-11] MEDS: *HR* HYDROcodone/Acet 7.5/325 mg TABLET GTUBE SCH ×3 (06:10→18:42)
[2019-05-11] MEDS: Insulin LISPRO 300 UNITS/3 ML VIAL SQ SCH ×4 (08:16→20:54)
[2019-05-11] MEDS: Loratadine 10 MG TABLET GTUBE SCH (08:17)
[2019-05-11] MEDS: Lactobacillus 1 EACH CAP.SPRINK GTUBE SCH (08:17)
[2019-05-11] MEDS: Aspirin 81 MG TAB.CHEW GTUBE SCH (08:17)
[2019-05-11] MEDS: Gabapentin 100 MG CAPSULE GTUBE SCH ×3 (08:17→20:52)
[2019-05-11] MEDS: Vancomycin Oral Soln 125 MG/2.5 ML UDC GTUBE SCH ×2 (08:18→20:53)
--- NOTE | 2019-05-11 08:32 | Internal Med Progress Note ---
<Shelby Schaefer - Last Filed: 05/11/19 18:34> Hospitalist Progress Note - Encounter Date of Encounter: 05/11/19 Time of Encounter: 09:45 - Subjective Interval History: Today, patient was pleasant and raised the topic of going to an ECF himself. Placement is in process. Patient was concerned he would be moved from the hospital before placement was completed and was assured that he would not be discharged until there was a bed for him in ECF. Current plan is for him to go to [facility] upon discharge. - Exam Vitals: Temp Pulse Resp BP Pulse Ox 98.3 F 66 18 119/63 96 05/11/19 07:42 05/11/19 07:42 05/11/19 07:42 05/11/19 07:42 05/11/19 07:42 Exam: GENERAL: Awake, conversant. Somewhat agitated. EYES: Anicteric, clear sclerae. Pupils equal and reactive to light bilaterally. HENT: Atraumatic, normocephalic. Moist mucosa NECK: Normal carotid pulses. Supple. CV: Regular rate and rhythm. Normal S1 and S2. No murmurs, clicks, gallops RESPIRATORY: Clear to auscultation bilaterally. No wheezes, rhonchi, rales ABDOMEN: Soft, nontender, nondistended. Normal bowel sounds heard. EXTREMITIES: Nonpitting edema bilaterally. Peripheral pulses 2+/4. Capillary refill<2s SKIN: Warm and dry. No lesions or rashes - Assessment and Plan (1) Intractable pain Current Visit: Yes Status: Acute Assessment and Plan: -Patient is currently on Leon and Dilaudid for control of back pain and pain from decubitus ulcer. -Plan to discharge to [facility], possibly tomorrow, until PASSPORT can be processed. Social Work is currently in communication with both. (2) Indwelling Johnson catheter present Current Visit: Yes Status: Acute Assessment and Plan: -urine culture grew Pseudomonas. -Currently being treated with ciprofloxacin for this. (3) Sacral decubitus ulcer, stage III Current Visit: Yes Status: Acute Assessment and Plan: Wound care has given recommendations for care. Ulcer is dressed with calcium alginate dressings. -Attempts have been made to reposition patient but have been met with resistance from patient. (4) C. difficile diarrhea Current Visit: Yes Status: Acute Assessment and Plan: -Is being covered with PO vancomycin. -Contact precautions are in place. (5) Depression Current Visit: Yes Status: Chronic Assessment and Plan: Continue home medications. (6) Diabetes Current Visit: Yes Status: Chronic Assessment and Plan: On Accuchecks and SSI. (7) History of pulmonary embolus (PE) Current Visit: Yes Status: Acute Assessment and Plan: Currently on heparin. -Had subtherapeutic INR on home Coumadin -Currently on Lovenox after bridging. DVT Prophylaxis: Currently on SQ enoxaparin 100 mg - Time Spent with Patient Total time spent is greater than 50% in coordination of care (as documented) at patient's floor/unit and/or counseling patient: Internal Medicine: Result - Labs CBC & Chem 7: 05/11/19 04:42 05/11/19 04:42 Labs: Short CBC 05/11/19 Range/Units 04:42 WBC 8.4 (4.3-11.1) K/mcL Hgb 9.0 L (12.9-16.9) g/dL Hct 28.6 L (37.5-50.1) % Plt Count 488 H (140-400) K/mcL Neutrophils # 4.2 (1.6-8.9) K/mcL BMP 05/11/19 04:42 Sodium 132 L Potassium 4.0 Chloride 96 L Carbon Dioxide 32 H BUN 11 Creatinine 0.50 L Glucose 286 H Calcium 8.6 - ABG Interpretation ABG results: PT/INR, D-dimer PT 12.8 Seconds (9.4-12.1) H 05/11/19 04:42 Consult Discharge Plan - Plan Referrals: NONE,PCP [Primary Care Provider] - Prescriptions: Enoxaparin [Lovenox] 100 mg SQ Q12HR #10 syr Prescription Printed <Diego Richard - Last Filed: 05/11/19 20:56> Hospitalist Progress Note - Encounter Date of Encounter: 05/11/19 - Exam Vitals: Temp Pulse Resp BP Pulse Ox 98.2 F 78 18 103/56 99 05/11/19 19:40 05/11/19 19:40 05/11/19 19:40 05/11/19 19:40 05/11/19 19:40 - Assessment and Plan (1) Intractable pain Current Visit: Yes Status: Acute (2) Aspiration pneumonia Current Visit: Yes Status: Ruled-out (3) C. difficile diarrhea Current Visit: Yes Status: Acute (4) Pulmonary emboli Current Visit: No Status: Acute (5) Depression Current Visit: Yes Status: Chronic (6) Diabetes Current Visit: Yes Status: Chronic (7) Chronic indwelling Johnson catheter Current Visit: Yes Status: Acute (8) Stage 1 skin ulcer of sacral region Current Visit: Yes Status: Acute - Time Spent with Patient Total time spent is greater than 50% in coordination of care (as documented) at patient's floor/unit and/or counseling patient: Internal Medicine: Result - Labs CBC & Chem 7: 05/11/19 04:42 05/11/19 04:42 Labs: Short CBC 05/11/19 Range/Units 04:42 WBC 8.4 (4.3-11.1) K/mcL Hgb 9.0 L (12.9-16.9) g/dL Hct 28.6 L (37.5-50.1) % Plt Count 488 H (140-400) K/mcL Neutrophils # 4.2 (1.6-8.9) K/mcL BMP 05/11/19 04:42 Sodium 132 L Potassium 4.0 Chloride 96 L Carbon Dioxide 32 H BUN 11 Creatinine 0.50 L Glucose 286 H Calcium 8.6 - ABG Interpretation ABG results: PT/INR, D-dimer PT 12.8 Seconds (9.4-12.1) H 05/11/19 04:42 - Attending Attestation I saw evaluated and examined this patient and reviewed objective data including labs and my medical decision-making was reviewed with the Resident Physician. I agree with the documented findings, disposition and treatment plan as described except to any changes set forth below. We independently had gfmd-rx-lopo contact with the patient. 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 <Diego Richard - Last Filed: 05/11/19 20:56> (2) Aspiration pneumonia Qualifiers: Aspiration pneumonia type: unspecified Laterality: unspecified laterality Lung location: unspecified part of lung Qualified Code(s): J69.0 - Pneumonitis due to inhalation of food and vomit (4) Pulmonary emboli Qualifiers: Pulmonary embolism type: unspecified Chronicity: acute Acute cor pulmonale presence: without acute cor pulmonale Qualified Code(s): I26.99 - Other pulmonary embolism without acute cor pulmonale (5) Depression Qualifiers: Depression Type: unspecified Qualified Code(s): F32.9 - Major depressive disorder, single episode, unspecified (6) Diabetes Qualifiers: Diabetes mellitus type: type 2 Diabetes mellitus 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
[2019-05-11] MEDS ORDERED: *HR* Warfarin 7.5 MG TABLET PO ONE (18:00)
[2019-05-11] MEDS: traZODone 50 MG TABLET GTUBE SCH (20:51)
[2019-05-11] MEDS: Melatonin 3 MG TABLET GTUBE SCH (20:52)
[2019-05-11] MEDS: Insulin DETEMIR 100 UNIT/ML X5UNITS SQ SCH (20:54)
[2019-05-12] MEDS: *HR* HYDROcodone/Acet 7.5/325 mg TABLET GTUBE SCH ×4 (00:03→17:46)
[2019-05-12 05:36] LABS: Basophils # 0.1 K/mcL (0.0-0.2); Basophils % 0.8 %; Eosinophils # 1.2 K/mcL (0.0-0.6); Eosinophils % 12.9 %; Hematocrit 27.8 % (37.5-50.1); Immature Granulocytes % 0.1 % (0-4); Lymphocytes # 2.3 K/mcL (0.6-4.6); Lymphocytes % 24.7 %; Mean Corpuscular HGB Conc 32.4 g/dL (31.6-35.5); Mean Corpuscular Hemoglobin 29.8 pg (28.0-33.3); Mean Corpuscular Volume 92.1 fL (83.0-100.0); Mean Platelet Volume 9.4 fL (9.4-12.4); Monocytes # 0.9 K/mcL (0.0-1.3); Monocytes % 9.5 %; Neutrophils # 4.9 K/mcL (1.6-8.9); Platelet Count 495 K/mcL (140-400); Red Blood Count 3.02 M/mcL (4.19-5.50); Red Cell Distribution Width 15.6 % (11.5-14.5); White Blood Count 9.3 K/mcL (4.3-11.1)
[2019-05-12 05:45] LABS: INR 1.2; Prothrombin Time 13.2 Seconds (9.4-12.1)
[2019-05-12 05:58] LABS: BUN/Creatinine Ratio 18 (6-26); Blood Urea Nitrogen 9 mg/dL (8-23); Calcium 8.8 mg/dL (8.6-10.3); Carbon Dioxide 34 mEq/L (23-29); Chloride 96 mEq/L (98-107); Glucose 292 mg/dL (70-105); Osmolality,Calculated 281 (280-300); Sodium 131 mEq/L (136-145); eGFR For African Americans > 60 (> 60); eGFR For Non-African Americans > 60 (> 60)
[2019-05-12] MEDS: *HR* Enoxaparin 100 MG/ML SYRINGE SQ SCH ×2 (05:59→17:47)
[2019-05-12] MEDS: Insulin LISPRO 300 UNITS/3 ML VIAL SQ SCH ×3 (08:15→17:45)
[2019-05-12] MEDS: *HR* HYDROmorphone 2 MG TABLET GTUBE PRN ×3 (08:16→18:50)
[2019-05-12] MEDS: Aspirin 81 MG TAB.CHEW GTUBE SCH (08:16)
[2019-05-12] MEDS: Lactobacillus 1 EACH CAP.SPRINK GTUBE SCH (08:16)
[2019-05-12] MEDS: Loratadine 10 MG TABLET GTUBE SCH (08:16)
[2019-05-12] MEDS: Gabapentin 100 MG CAPSULE GTUBE SCH ×2 (08:16→17:46)
[2019-05-12] MEDS: Vancomycin Oral Soln 125 MG/2.5 ML UDC GTUBE SCH (08:17)
--- NOTE | 2019-05-12 10:57 | Internal Med Progress Note ---
<Shelby Schaefer Herminio - Last Filed: 05/12/19 16:18> Hospitalist Progress Note - Encounter Date of Encounter: 05/12/19 Time of Encounter: 10:57 - Subjective Interval History: Patient reports feeling approximately same as yesterday. He reports he is just waiting to be transferred and he denies any issues today. - Exam Vitals: Temp Pulse Resp BP Pulse Ox 98.2 F 66 16 111/65 97 05/12/19 06:43 05/12/19 06:43 05/12/19 06:43 05/12/19 06:43 05/12/19 06:43 Exam: GENERAL: in good spirits, in no acute distress. Awake, conversant. EYES: anicteric, clear sclerae. Pupils equal and reactive to light bilaterally. HENT: atraumatic, normocephalic. Moist mucosa NECK: supple, normal carotid pulses CV: regular rate and rhythm. Normal S1 and S2. No murmurs, clicks, or gallops RESPIRATORY/CHEST: clear to auscultation bilaterally. No tenderness to palp ation. No wheezes, rhonchi, or rales. ABDOMEN: soft, nontender, nondistended. Normal bowel sounds heard EXTREMITIES: mild nonpitting edema. Peripheral pulses 2+/4. Capillary refill <2 sec SKIN: no rashes or lesions. - Assessment and Plan (1) Intractable pain Current Visit: Yes Status: Acute Assessment and Plan: Currently on [place] and Dilaudid for control of back pain and pain from decubitus ulcer. -Plan to discharge to [facility] until PASSPORT can be processed. Social Work is currently managing placement. (2) Indwelling Johnson catheter present Current Visit: Yes Status: Acute Assessment and Plan: Urine culture grew Pseudomonas aeruginosa. -Patient has been on ciprofloxacin Day 4, previously on 3 days of cefepime. -Stopping Cipro today. (3) Sacral decubitus ulcer, stage III Current Visit: Yes Status: Acute Assessment and Plan: Wound care has given recommendations for care. Ulcer is dressed with calcium alginate dressings. -Attempts have been made to reposition patient but have been met with resistance from patient. (4) C. difficile diarrhea Current Visit: Yes Status: Acute Assessment and Plan: Tested positive before coming to hospital; C difficile toxin negative while in hospital -Is being covered with PO vancomycin. -Contact precautions are in place. (5) Depression Current Visit: Yes Status: Chronic Assessment and Plan: Continue home medications. (6) Diabetes Current Visit: Yes Status: Chronic Assessment and Plan: Continue Accuchecks and SSI (7) History of pulmonary embolus (PE) Current Visit: Yes Status: Acute Assessment and Plan: -Heparin has been discontinued. -Had subtherapeutic INR on home Coumadin. -Was bridged on Lovenox. -Continue Lovenox DVT Prophylaxis: Currently on SQ enoxaparin 100 mg - Time Spent with Patient Total time spent is greater than 50% in coordination of care (as documented) at patient's floor/unit and/or counseling patient: Internal Medicine: Result - Labs CBC & Chem 7: 05/12/19 05:21 05/12/19 05:21 Labs: Short CBC 05/12/19 Range/Units 05:21 WBC 9.3 (4.3-11.1) K/mcL Hgb 9.0 L (12.9-16.9) g/dL Hct 27.8 L (37.5-50.1) % Plt Count 495 H (140-400) K/mcL Neutrophils # 4.9 (1.6-8.9) K/mcL BMP 05/12/19 05:21 Sodium 131 L Potassium 4.0 Chloride 96 L Carbon Dioxide 34 H BUN 9 Creatinine 0.50 L Glucose 292 H Calcium 8.8 - ABG Interpretation ABG results: PT/INR, D-dimer PT 13.2 Seconds (9.4-12.1) H 05/12/19 05:21 Consult Discharge Plan - Plan Referrals: NONE,PCP [Primary Care Provider] - Prescriptions: Enoxaparin [Lovenox] 100 mg SQ Q12HR #10 syr Prescription Printed <Diego Richard - Last Filed: 05/12/19 17:59> Hospitalist Progress Note - Encounter Date of Encounter: 05/12/19 - Exam Vitals: Temp Pulse Resp BP Pulse Ox 98.2 F 63 16 102/56 97 05/12/19 14:46 05/12/19 14:46 05/12/19 14:46 05/12/19 14:46 05/12/19 14:46 - Assessment and Plan (1) Intractable pain Current Visit: Yes Status: Acute (2) Aspiration pneumonia Current Visit: Yes Status: Ruled-out (3) C. difficile diarrhea Current Visit: Yes Status: Acute (4) Pulmonary emboli Current Visit: No Status: Acute (5) Depression Current Visit: Yes Status: Chronic (6) Diabetes Current Visit: Yes Status: Chronic (7) Chronic indwelling Johnson catheter Current Visit: Yes Status: Acute (8) Stage 1 skin ulcer of sacral region Current Visit: Yes Status: Acute - Time Spent with Patient Total time spent is greater than 50% in coordination of care (as documented) at patient's floor/unit and/or counseling patient: Internal Medicine: Result - Labs CBC & Chem 7: 05/12/19 05:21 05/12/19 05:21 Labs: Short CBC 05/12/19 Range/Units 05:21 WBC 9.3 (4.3-11.1) K/mcL Hgb 9.0 L (12.9-16.9) g/dL Hct 27.8 L (37.5-50.1) % Plt Count 495 H (140-400) K/mcL Neutrophils # 4.9 (1.6-8.9) K/mcL BMP 05/12/19 05:21 Sodium 131 L Potassium 4.0 Chloride 96 L Carbon Dioxide 34 H BUN 9 Creatinine 0.50 L Glucose 292 H Calcium 8.8 - ABG Interpretation ABG results: PT/INR, D-dimer PT 13.2 Seconds (9.4-12.1) H 05/12/19 05:21 - Attending Attestation I saw evaluated and examined this patient and reviewed objective data including labs and my medical decision-making was reviewed with the Resident Physician. I agree with the documented findings, disposition and treatment plan as described except to any changes set forth below. We independently had [id number] contact with the patient. Patient discharged today, see discharge summary. 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) use of insulin <Diego Richard - Last Filed: 05/12/19 17:59> (2) Aspiration pneumonia Qualifiers: Aspiration pneumonia type: unspecified Laterality: unspecified laterality Lung location: unspecified part of lung Qualified Code(s): J69.0 - Pneumonitis due to inhalation of food and vomit (4) Pulmonary emboli Qualifiers: Pulmonary embolism type: unspecified Chronicity: acute Acute cor pulmonale presence: without acute cor pulmonale Qualified Code(s): I26.99 - Other pu lmonary embolism without acute cor pulmonale (5) Depression Qualifiers: Depression Type: unspecified Qualified Code(s): F32.9 - Major depressive disorder, single episode, unspecified (6) Diabetes Qualifiers: Diabetes mellitus type: type 2 Diabetes mellitus manager long term care insulin use: with assisted use Diabetes mellitus complication detail: with polyneuropathy Qualified Code(s): E11.42 - Type 2 diabetes mellitus with diabetic polyneuro brisa; Z79.4 - superintendent terminal (current) use of insulin
[2019-05-12 15:20] VITALS: BP 102/56
--- NOTE | 2019-05-12 17:41 | Physician Discharge Referral ---
ExtendedCare Referral Info Institutional Level of Care: Skilled - Diagnosis (1) Intractable pain Priority: Primary Status: Acute (2) Indwelling Johnson catheter present Priority: Secondary Status: Acute (3) Sacral decubitus ulcer, stage III Priority: Secondary Status: Acute (4) C. difficile diarrhea Priority: Secondary Status: Acute (5) Depression Priority: Secondary Status: Chronic (6) Diabetes Priority: Secondary Status: Chronic (7) History of pulmonary embolus (PE) Priority: Secondary Status: Acute - Transfer Medications Prescriptions: Enoxaparin [Lovenox] 100 mg SQ Q12HR #10 syr Prescription Printed Home Medications: Aspirin Enteric Coated [Aspirin EC] 81 mg PO DAILY 04/19/18 [History] Cetirizine HCl [All Day Allergy] 10 mg PO DAILY PRN 04/19/18 [History] Citalopram Hydrobromide [Citalopram HBr] 40 mg PO HS 04/19/18 [History] Clorazepate Dipotassium 15 mg PO BID 04/19/18 [History] Insulin ASPART [NovoLOG] 0 unit SQ TIDWM 04/19/18 [History] Insulin Glargine,Hum.rec.anlog [Lantus Solostar] 20 unit SQ HS 04/19/18 [History] traZODone [TraZODone] 100 mg PO HS 04/19/18 [History] Furosemide [Lasix] 20 mg PO DAILY PRN 09/20/18 [History] Ondansetron ODT [Zofran ODT] 4 mg SL Q6HR PRN #8 tab.rapdis 10/27/18 [Rx] Acetaminophen [Non-Aspirin] 650 mg PO Q6H PRN 05/08/19 [History] Atenolol [Tenormin] 50 mg PO DAILY 05/08/19 [History] Gabapentin [Neurontin] 200 mg PO TID 05/08/19 [History] HYDROcodone/Acet 7.5/325 mg [[place] 7.5-325 mg] 1 tab PO Q6H 05/08/19 [History] Isosorbide DInitrate [Isordil] 20 mg PO TIDAC 05/08/19 [History] Lactobacillus Acidophilus [Acidophilus Lactobacilli] 1 cap PO DAILY 05/08/19 [History] Melatonin [Melatin] 6 mg PO HS 05/08/19 [History] Multivitamin [Daily Multiple Vitamin] 1 tab PO DAILY 05/08/19 [History] Nitroglycerin [Nitrostat] 0.4 mg SL Q5MIN 05/08/19 [History] Sodium Chloride [Sodium Chloride Tab] 1 gm PO TID 05/08/19 [History] Vancomycin Oral Soln [Firvanq] 125 mg PO QID 05/08/19 [History] Warfarin [Coumadin] 5 mg PO DAILY 05/08/19 [History] guaiFENesin [Guaifenesin] 400 mg PO Q12H PRN 05/08/19 [History] Atenolol [Tenormin] 25 mg GTUBE BID tablet 05/10/19 [Rx] Ciprofloxacin [Cipro] 500 mg PO BIDAC tablet 05/10/19 [Rx] Enoxaparin [Lovenox] 100 mg SQ Q12HR #10 syr 05/10/19 [Rx] Isosorbide DInitrate [Isordil] 20 mg PO 0800,1800 tablet 05/10/19 [Rx] Vancomycin Oral Soln [Firvanq] 125 mg GTUBE BID udc 05/10/19 [Rx] Allergies/Adverse Reactions: Allergy/AdvReac Type Severity Reaction Status Date / Time Penicillins [PCN] Allergy See Verified 10/26/18 23:51 Comments - Respiratory Orders Smoking Cessation: Smoking cessation has been advised. For more information, call the [place] Tobacco Quit Line at 9-426-KJHJ-NOW. CERTIFICATION: I certify that the transfer of the above named patient to an Extended Care Facility is necessary for the continuing treatment of the diagnosis listed. The above information is true and accurate reflection of patient's current condition. Confidential - Redisclosure prohibited without a patient's written consent.
[2019-05-12] MEDS ORDERED: *HR* Warfarin 7.5 MG TABLET GTUBE ONE (18:00)
[2019-05-12] MEDS ORDERED: *HR* Warfarin 7.5 MG TABLET PO ONE (18:00)
[2019-05-25] MEDS ORDERED: Vancomycin Oral Soln 125 MG/2.5 ML UDC PO SCH (09:00)
[2019-05-25] MEDS ORDERED: Vancomycin Oral Soln 125 MG/2.5 ML UDC GTUBE SCH (09:00)
[2019-06-02] MEDS ORDERED: Vancomycin Oral Soln 125 MG/2.5 ML UDC GTUBE SCH (09:00)
== END 2019-05-12 19:26 | DRG 177 ==
LOC: EMEROOARM 00:23 → 3ANU 00:23 → EMEROOARM 06:35 → 3ANU 09:20 → SUATTDRO 05-07 11:36
PROVIDERS: ADMIT Internal Medicine; ATTEND Student in an Organized Health Care Education/Training Program

== ENCOUNTER 2019-06-13 00:38 | Inpatient (IN) ==
[2019-06-13] MEDS ORDERED: Lidocaine Jelly 11 ml Syringe MM STA (00:58)
[2019-06-13] MEDS ORDERED: 0.9 % Sodium Chloride 500 ML IVC STA (01:02)
[2019-06-13] MEDS ORDERED: *HR* OxyCODONE/APAP 7.5/325 TABLET PO STA (01:05)
[2019-06-13 02:12] LABS: Basophils # 0.1 K/mcL (0.0-0.2); Basophils % 0.5 %; Eosinophils # 0.5 K/mcL (0.0-0.6); Eosinophils % 4.6 %; Hematocrit 27.4 % (37.5-50.1); Hemoglobin 9.2 g/dL (12.9-16.9); Immature Granulocytes % 0.3 % (0-4); Lymphocytes # 2.3 K/mcL (0.6-4.6); Lymphocytes % 20.6 %; Mean Corpuscular HGB Conc 33.6 g/dL (31.6-35.5); Mean Corpuscular Hemoglobin 29.7 pg (28.0-33.3); Mean Corpuscular Volume 88.4 fL (83.0-100.0); Mean Platelet Volume 9.4 fL (9.4-12.4); Monocytes # 0.5 K/mcL (0.0-1.3); Monocytes % 4.1 %; Neutrophils # 7.7 K/mcL (1.6-8.9); Platelet Count 697 K/mcL (140-400); Red Cell Distribution Width 16.2 % (11.5-14.5); Segmented Neutrophils % 69.9 %; White Blood Count 11.1 K/mcL (4.3-11.1)
[2019-06-13 02:29] LABS: Alanine Aminotransferase 12 Units/L (7-52); Albumin/Globulin Ratio 0.8 (1.1-2.2); Alkaline Phosphatase 108 Units/L (34-104); Aspartate Amino Transferase 26 Units/L (13-39); BUN/Creatinine Ratio 10 (6-26); Bilirubin,Direct 0.1 mg/dL (0.0-0.2); Bilirubin,Indirect 0.3 mg/dL (0.0-1.0); Bilirubin,Total 0.4 mg/dL (0.3-1.0); Blood Urea Nitrogen 34 mg/dL (8-23); Calcium 8.5 mg/dL (8.6-10.3); Carbon Dioxide 26 mEq/L (23-29); Chloride 92 mEq/L (98-107); Ethanol < 10 mg/dL (Less than 10); Globulin 3.8 g/dL (2.4-3.5); Glucose 82 mg/dL (70-105); Osmolality,Calculated 277 (280-300); Potassium 4.8 mEq/L (3.5-5.1); Sodium 130 mEq/L (136-145); Total Protein 6.8 g/dL (6.4-8.9); Troponin I < 0.03 ng/mL (< 0.04); eGFR For African Americans 23 (> 60); eGFR For Non-African Americans 19 (> 60)
[2019-06-13 03:23] LABS: Bilirubin,Urine Negative (Negative); Blood,Urine Large (Negative); Clarity,Urine Cloudy (Clear); Color,Urine Yellow (Yellow); Glucose,Urine (UA) Normal (Normal); Ketones,Urine Negative (Negative); Leukocyte Esterase,Urine Moderate (Negative); Nitrite,Urine Negative (Negative); Protein,Urine 30 mg/dL (Neg-Trace); Specific Gravity,Urine 1.008 (1.010-1.025); Urobilinogen,Urine Normal (Normal)
[2019-06-13 03:26] LABS: Bacteria,Urine None Seen per hpf (None-Few); Hyaline Casts,Urine None Seen per lpf (None-Few); RBC,Urine TNTC per hpf (0-3); Squamous Epithelial Cell,Urine None Seen per lpf (None-Few); WBC,Urine 30-50 per hpf (0-3)
[2019-06-13 03:34] LABS: Amphetamine Screen,Urine Negative ng/mL (Cutoff=1000); Barbiturate Screen,Urine Negative ng/mL (Cutoff=200); Benzodiazepines Screen,Urine Positive ng/mL (Cutoff=200); Cannabinoid Screen,Urine Negative ng/mL (Cutoff = 50); Cocaine Screen,Urine Negative ng/mL (Cutoff= 300); Opiate Screen,Urine Positive ng/mL (Cutoff=300); Phencyclidine Screen,Urine Negative ng/mL (Cutoff=25)
[2019-06-13] MEDS ORDERED: Morphine Sulfate 2 MG/ML SYRINGE IVP ONE (03:48)
[2019-06-13] MEDS ORDERED: cefTRIAXone 1,000 MG in Water for inj. (sterile) 10 ML IVP STA (03:55)
[2019-06-13] MEDS ORDERED: 0.9 % Sodium Chloride 1,000 ML IVC ONE (04:10)
[2019-06-13] MEDS ORDERED: *HR* HYDROmorphone (PF) 1 MG/ML SYRINGE IVP STA (04:15)
[2019-06-13] MEDS ORDERED: Naloxone 0.4 MG/ML INJ IVP PRN (08:47)
[2019-06-13] MEDS ORDERED: *HR* HYDROmorphone (PF) 1 MG/ML SYRINGE IVP ONE (08:55)
[2019-06-13 10:34] LABS: Sodium, Urine 46.8 mEq/L
[2019-06-13] MEDS ORDERED: D5% in Water 1,000 ML IVC PRN (14:09)
[2019-06-13] MEDS ORDERED: Dextrose Gel 15 GM/37.5 ML TUBE PO PRN ×2 (14:09)
[2019-06-13] MEDS ORDERED: *HR* Dextrose 50 % in Water (Syg) 50 ML SYRINGE IVP PRN (14:09)
[2019-06-13] MEDS: *HR* HYDROcodone/Acet 7.5/325 mg TABLET PO PRN ×2 (14:10→21:47)
[2019-06-13] MEDS: Gabapentin 100 MG CAPSULE PO SCH ×2 (14:10→21:47)
[2019-06-13 16:26] LABS: Prothrombin Time 58.7 Seconds (9.4-12.1)
[2019-06-13 16:27] LABS: INR 5.2
[2019-06-13] MEDS: Insulin LISPRO 300 UNITS/3 ML VIAL SQ SCH ×2 (17:07→21:30)
[2019-06-13] MEDS ORDERED: Warfarin perPT PO PRN (18:00)
[2019-06-13] MEDS ORDERED: Mirtazapine 15 MG TABLET PO SCH (21:00)
[2019-06-13] MEDS ORDERED: traZODone 50 MG TABLET PO SCH (21:00)
[2019-06-13] MEDS ORDERED: Insulin DETEMIR 100 UNIT/ML X5UNITS SQ SCH (21:00)
[2019-06-14 04:46] LABS: Basophils # 0.1 K/mcL (0.0-0.2); Basophils % 0.5 %; Eosinophils # 0.7 K/mcL (0.0-0.6); Eosinophils % 7.4 %; Hematocrit 23.4 % (37.5-50.1); Hemoglobin 7.9 g/dL (12.9-16.9); Immature Granulocytes % 0.3 % (0-4); Lymphocytes # 2.3 K/mcL (0.6-4.6); Lymphocytes % 24.2 %; Mean Corpuscular HGB Conc 33.8 g/dL (31.6-35.5); Mean Corpuscular Hemoglobin 29.7 pg (28.0-33.3); Mean Platelet Volume 9.2 fL (9.4-12.4); Monocytes # 0.5 K/mcL (0.0-1.3); Monocytes % 5.3 %; Neutrophils # 5.8 K/mcL (1.6-8.9); Platelet Count 584 K/mcL (140-400); Red Blood Count 2.66 M/mcL (4.19-5.50); Red Cell Distribution Width 16.3 % (11.5-14.5); Segmented Neutrophils % 62.3 %; White Blood Count 9.3 K/mcL (4.3-11.1)
[2019-06-14 04:55] LABS: INR 5.5; Prothrombin Time 63.1 Seconds (9.4-12.1)
[2019-06-14 05:05] LABS: Calcium 8.1 mg/dL (8.6-10.3); Potassium 4.4 mEq/L (3.5-5.1)
[2019-06-14] MEDS: *HR* HYDROcodone/Acet 7.5/325 mg TABLET PO PRN ×4 (05:27→23:48)
[2019-06-14] MEDS: Insulin LISPRO 300 UNITS/3 ML VIAL SQ SCH ×4 (07:34→22:32)
[2019-06-14] MEDS ORDERED: Furosemide 20 MG TABLET PO SCH (09:00)
[2019-06-14] MEDS ORDERED: 0.9 % Sodium Chloride 1,000 ML IVC SCH ×2 (09:00→09:30)
[2019-06-14] MEDS: Gabapentin 100 MG CAPSULE PO SCH (09:48)
[2019-06-14 10:14] LABS: Basophils % 0.2 %; Eosinophils # 0.6 K/mcL (0.0-0.6); Eosinophils % 5.5 %; Hematocrit 24.8 % (37.5-50.1); Hemoglobin 8.1 g/dL (12.9-16.9); Immature Granulocytes % 0.2 % (0-4); Lymphocytes # 2.2 K/mcL (0.6-4.6); Lymphocytes % 20.1 %; Mean Corpuscular HGB Conc 32.7 g/dL (31.6-35.5); Mean Corpuscular Volume 91.9 fL (83.0-100.0); Mean Platelet Volume 8.8 fL (9.4-12.4); Monocytes # 0.6 K/mcL (0.0-1.3); Monocytes % 5.1 %; Neutrophils # 7.5 K/mcL (1.6-8.9); Platelet Count 529 K/mcL (140-400); Red Cell Distribution Width 16.3 % (11.5-14.5); Segmented Neutrophils % 68.9 %; White Blood Count 10.9 K/mcL (4.3-11.1)
[2019-06-14] MEDS ORDERED: *HR* Phytonadione 5 MG TABLET PO ONE (13:53)
[2019-06-14] MEDS: Gabapentin 100 MG CAPSULE GTUBE SCH ×2 (15:59→22:28)
[2019-06-14 18:26] LABS: Acinetobacter baumannii by PCR Not Detected (Not Detect); Candida albicans by PCR Not Detected (Not Detect); Candida glabrata by PCR Not Detected (Not Detect); Candida krusei by PCR Not Detected (Not Detect); Candida parapsilosis by PCR Not Detected (Not Detect); Candida tropicalis by PCR Not Detected (Not Detect); Enterobacter cloacae Cmplx PCR Not Detected (Not Detect); Enterobacteriaceae by PCR Not Detected (Not Detect); Enterococcus by PCR Not Detected (Not Detect); Escherichia coli by PCR Not Detected (Not Detect); Klebsiella oxytoca by PCR Not Detected (Not Detect); Klebsiella pneumoniae by PCR Not Detected (Not Detect); Proteus by PCR Not Detected (Not Detect); Pseudomonas aeruginosa by PCR Not Detected (Not Detect); Serratia marcescens by PCR Not Detected (Not Detect); Staphylococcus aureus by PCR Not Detected (Not Detect); Staphylococcus by PCR DETECTED (Not Detect); Streptococcus agalactiae(B)PCR Not Detected (Not Detect); Streptococcus by PCR Not Detected (Not Detect); Streptococcus pneumoniae PCR Not Detected (Not Detect); Streptococcus pyogenes (A) PCR Not Detected (Not Detect); blaKPC Carbapenem-Resist Gene Not Detected (Not Detect); mecA Methicillin-Resist Gene Not Detected (Not Detect); vanA/B Vancomycin-Resist Genes Not Detected (Not Detect)
[2019-06-14] MEDS: 0.9 % Sodium Chloride 1,000 ML IVC SCH (22:27)
[2019-06-14] MEDS: Mirtazapine 15 MG TABLET GTUBE SCH (22:29)
[2019-06-14] MEDS: traZODone 50 MG TABLET GTUBE SCH (22:31)
[2019-06-15] MEDS: 0.9 % Sodium Chloride 1,000 ML IVC SCH ×2 (05:05→20:30)
[2019-06-15] MEDS: *HR* HYDROcodone/Acet 7.5/325 mg TABLET PO PRN ×4 (05:06→23:40)
[2019-06-15 06:36] LABS: Basophils % 0.4 %; Eosinophils # 0.6 K/mcL (0.0-0.6); Eosinophils % 7.9 %; Hematocrit 22.6 % (37.5-50.1); Hemoglobin 7.5 g/dL (12.9-16.9); Immature Granulocytes % 0.1 % (0-4); Lymphocytes # 2.2 K/mcL (0.6-4.6); Lymphocytes % 32.1 %; Mean Corpuscular HGB Conc 33.2 g/dL (31.6-35.5); Mean Corpuscular Hemoglobin 29.9 pg (28.0-33.3); Mean Platelet Volume 9.3 fL (9.4-12.4); Monocytes # 0.5 K/mcL (0.0-1.3); Monocytes % 7.2 %; Neutrophils # 3.6 K/mcL (1.6-8.9); Platelet Count 517 K/mcL (140-400); Red Blood Count 2.51 M/mcL (4.19-5.50); Red Cell Distribution Width 16.3 % (11.5-14.5); Segmented Neutrophils % 52.3 %; White Blood Count 6.9 K/mcL (4.3-11.1)
[2019-06-15 06:39] LABS: Prothrombin Time 22.4 Seconds (9.4-12.1)
[2019-06-15 06:55] LABS: Calcium 7.8 mg/dL (8.6-10.3); Potassium 4.4 mEq/L (3.5-5.1)
[2019-06-15 07:03] LABS: VBG Ionized Calcium 1.13 mmol/L (1.15-1.35)
[2019-06-15] MEDS: Insulin LISPRO 300 UNITS/3 ML VIAL SQ SCH ×4 (07:47→20:21)
[2019-06-15] MEDS: Gabapentin 100 MG CAPSULE GTUBE SCH ×3 (07:48→20:20)
[2019-06-15] MEDS: cefTRIAXone 1,000 MG in Water for inj. (sterile) 10 ML IVP SCH (11:09)
[2019-06-15] MEDS ORDERED: Sodium Bicarbonate 50 MEQ/50 ML VIAL IVP ONE (14:53)
[2019-06-15] MEDS ORDERED: Warfarin perPT GTUBE PRN (18:00)
[2019-06-15] MEDS ORDERED: *HR* Warfarin 7.5 MG TABLET GTUBE ONE (18:00)
[2019-06-15] MEDS: Mirtazapine 15 MG TABLET GTUBE SCH (20:19)
[2019-06-15] MEDS: traZODone 50 MG TABLET GTUBE SCH (20:19)
[2019-06-16 03:00] LABS: INR 1.4; Prothrombin Time 16.3 Seconds (9.4-12.1)
[2019-06-16 03:05] LABS: Basophils % 0.3 %; Eosinophils # 0.8 K/mcL (0.0-0.6); Hematocrit 23.2 % (37.5-50.1); Hemoglobin 7.3 g/dL (12.9-16.9); Immature Granulocytes % 0.3 % (0-4); Lymphocytes # 1.8 K/mcL (0.6-4.6); Lymphocytes % 23.2 %; Mean Corpuscular HGB Conc 31.5 g/dL (31.6-35.5); Mean Corpuscular Hemoglobin 29.3 pg (28.0-33.3); Mean Corpuscular Volume 93.2 fL (83.0-100.0); Mean Platelet Volume 9.1 fL (9.4-12.4); Monocytes # 0.6 K/mcL (0.0-1.3); Neutrophils # 4.7 K/mcL (1.6-8.9); Platelet Count 447 K/mcL (140-400); Red Blood Count 2.49 M/mcL (4.19-5.50); Red Cell Distribution Width 16.1 % (11.5-14.5); Segmented Neutrophils % 59.2 %; White Blood Count 7.9 K/mcL (4.3-11.1)
[2019-06-16 04:15] LABS: Albumin 2.3 g/dL (3.5-5.7); Calcium 7.9 mg/dL (8.6-10.3); Magnesium 1.6 mg/dL (1.6-2.6); Phosphorous 5.9 mg/dL (2.7-4.5); Potassium 4.3 mEq/L (3.5-5.1)
[2019-06-16] MEDS: 0.9 % Sodium Chloride 1,000 ML IVC SCH ×3 (06:47→18:58)
[2019-06-16] MEDS: *HR* HYDROcodone/Acet 7.5/325 mg TABLET PO PRN ×3 (06:47→21:32)
[2019-06-16] MEDS: Gabapentin 100 MG CAPSULE GTUBE SCH ×3 (09:07→21:05)
[2019-06-16] MEDS: Insulin LISPRO 300 UNITS/3 ML VIAL SQ SCH ×3 (09:08→17:45)
[2019-06-16] MEDS: cefTRIAXone 1,000 MG in Water for inj. (sterile) 10 ML IVP SCH (09:09)
[2019-06-16] MEDS: Magnesium Oxide 400 MG TABLET PO SCH ×2 (12:17→21:05)
[2019-06-16] MEDS: Calcium Gluconate 1gm/50mL 1 GM/50 ML BAG IVPB SCH ×2 (12:17→14:23)
[2019-06-16] MEDS: *HR* Heparin 5,000 UNIT/ML VIAL SQ SCH ×2 (17:50→21:06)
[2019-06-16] MEDS ORDERED: *HR* Warfarin 7.5 MG TABLET GTUBE ONE (18:00)
[2019-06-16] MEDS: Mirtazapine 15 MG TABLET GTUBE SCH (21:05)
[2019-06-16] MEDS: traZODone 50 MG TABLET GTUBE SCH (21:05)
[2019-06-17] MEDS: Insulin LISPRO 300 UNITS/3 ML VIAL SQ SCH ×5 (00:36→20:06)
[2019-06-17] MEDS: *HR* HYDROcodone/Acet 7.5/325 mg TABLET PO PRN ×3 (04:38→19:56)
[2019-06-17] MEDS: 0.9 % Sodium Chloride 1,000 ML IVC SCH ×3 (04:39→12:37)
[2019-06-17] MEDS: *HR* Heparin 5,000 UNIT/ML VIAL SQ SCH ×3 (05:09→21:50)
[2019-06-17 07:49] LABS: Basophils % 0.3 %; Eosinophils % 6.9 %; Hemoglobin 7.9 g/dL (12.9-16.9); Immature Granulocytes % 0.2 % (0-4); Lymphocytes # 1.9 K/mcL (0.6-4.6); Lymphocytes % 17.8 %; Mean Corpuscular HGB Conc 31.6 g/dL (31.6-35.5); Mean Corpuscular Hemoglobin 29.4 pg (28.0-33.3); Mean Corpuscular Volume 92.9 fL (83.0-100.0); Mean Platelet Volume 9.4 fL (9.4-12.4); Monocytes # 0.7 K/mcL (0.0-1.3); Monocytes % 6.7 %; Neutrophils # 7.4 K/mcL (1.6-8.9); Platelet Count 467 K/mcL (140-400); Red Blood Count 2.69 M/mcL (4.19-5.50); Red Cell Distribution Width 16.6 % (11.5-14.5); Segmented Neutrophils % 68.1 %
[2019-06-17 07:51] LABS: Eosinophils # 0.8 K/mcL (0.0-0.6); White Blood Count 10.8 K/mcL (4.3-11.1)
[2019-06-17 08:05] LABS: INR 1.3; Prothrombin Time 15.1 Seconds (9.4-12.1)
[2019-06-17 09:27] LABS: Calcium 8.3 mg/dL (8.6-10.3); Magnesium 1.7 mg/dL (1.6-2.6)
[2019-06-17] MEDS: Gabapentin 100 MG CAPSULE GTUBE SCH ×3 (09:51→21:50)
[2019-06-17] MEDS ORDERED: Calcium Gluconate 1gm/50mL 1 GM/50 ML BAG IVPB ONE (10:17)
[2019-06-17] MEDS: traZODone 50 MG TABLET GTUBE SCH (21:50)
[2019-06-17] MEDS: Mirtazapine 15 MG TABLET GTUBE SCH (21:51)
[2019-06-18] MEDS: 0.9 % Sodium Chloride 1,000 ML IVC SCH ×2 (00:51→07:51)
[2019-06-18 01:16] LABS: Hematocrit 21.8 % (37.5-50.1); Hemoglobin 6.9 g/dL (12.9-16.9); Mean Corpuscular HGB Conc 31.7 g/dL (31.6-35.5); Mean Corpuscular Hemoglobin 29.9 pg (28.0-33.3); Mean Corpuscular Volume 94.4 fL (83.0-100.0); Mean Platelet Volume 9.6 fL (9.4-12.4); Platelet Count 408 K/mcL (140-400); Red Blood Count 2.31 M/mcL (4.19-5.50); Red Cell Distribution Width 16.5 % (11.5-14.5); White Blood Count 10.3 K/mcL (4.3-11.1)
[2019-06-18 01:20] LABS: INR 1.3; Prothrombin Time 14.3 Seconds (9.4-12.1)
[2019-06-18 01:36] LABS: Calcium 8.3 mg/dL (8.6-10.3); Magnesium 2.2 mg/dL (1.6-2.6); Phosphorous 5.5 mg/dL (2.7-4.5); Potassium 5.1 mEq/L (3.5-5.1)
[2019-06-18] MEDS: *HR* HYDROcodone/Acet 7.5/325 mg TABLET PO PRN ×3 (04:21→22:14)
[2019-06-18] MEDS: *HR* Heparin 5,000 UNIT/ML VIAL SQ SCH ×3 (05:37→22:17)
[2019-06-18] MEDS: Insulin LISPRO 300 UNITS/3 ML VIAL SQ SCH ×4 (08:51→22:06)
[2019-06-18] MEDS: Gabapentin 100 MG CAPSULE GTUBE SCH ×3 (10:57→22:15)
[2019-06-18] MEDS: traZODone 50 MG TABLET GTUBE SCH (22:15)
[2019-06-18] MEDS: Mirtazapine 15 MG TABLET GTUBE SCH (22:16)
[2019-06-19 02:07] LABS: Hematocrit 24.4 % (37.5-50.1); Hemoglobin 7.6 g/dL (12.9-16.9); Mean Corpuscular HGB Conc 31.1 g/dL (31.6-35.5); Mean Corpuscular Volume 96.4 fL (83.0-100.0); Mean Platelet Volume 9.5 fL (9.4-12.4); Platelet Count 439 K/mcL (140-400); Red Blood Count 2.53 M/mcL (4.19-5.50); Red Cell Distribution Width 16.2 % (11.5-14.5); White Blood Count 12.1 K/mcL (4.3-11.1)
[2019-06-19 02:09] LABS: INR 1.2; Prothrombin Time 13.2 Seconds (9.4-12.1)
[2019-06-19 02:26] LABS: Calcium 8.5 mg/dL (8.6-10.3); Magnesium 2.2 mg/dL (1.6-2.6); Phosphorous 5.7 mg/dL (2.7-4.5); Potassium 5.8 mEq/L (3.5-5.1)
[2019-06-19] MEDS ORDERED: Calcium Gluconate 1gm/50mL 1 GM/50 ML BAG IVPB ONE (03:45)
[2019-06-19] MEDS ORDERED: Insulin Human Regular 10 UNIT in 0.9 % Sodium Chloride 10 ML IV ONE (03:46)
[2019-06-19] MEDS ORDERED: *HR* Dextrose 50 % in Water (Syg) 50 ML SYRINGE IVP ONE (03:47)
[2019-06-19] MEDS ORDERED: Albuterol 2.5 MG/3 ML NEBULIZER IH ONE (03:51)
[2019-06-19] MEDS: *HR* Heparin 5,000 UNIT/ML VIAL SQ SCH ×3 (05:23→22:51)
[2019-06-19] MEDS: *HR* HYDROcodone/Acet 7.5/325 mg TABLET PO PRN ×2 (05:29→17:26)
[2019-06-19] MEDS: Insulin LISPRO 300 UNITS/3 ML VIAL SQ SCH ×4 (08:51→22:53)
[2019-06-19] MEDS: Gabapentin 100 MG CAPSULE GTUBE SCH ×3 (08:51→22:52)
[2019-06-19] MEDS ORDERED: Furosemide 20 MG/2 ML VIAL IVP ONE ×2 (16:28→16:49)
[2019-06-19] MEDS ORDERED: 0.9 % Sodium Chloride 500 ML ONE (17:47)
[2019-06-19] MEDS ORDERED: Ondansetron 4 MG/2 ML VIAL IVP ONE (20:42)
[2019-06-19] MEDS: traZODone 50 MG TABLET GTUBE SCH (22:52)
[2019-06-19] MEDS: Mirtazapine 15 MG TABLET GTUBE SCH (22:53)
[2019-06-20] MEDS: *HR* Heparin 5,000 UNIT/ML VIAL SQ SCH ×3 (05:42→20:29)
[2019-06-20] MEDS ORDERED: Furosemide 80 MG in 0.9 % Sodium Chloride 50 ML IVPB STA (07:56)
[2019-06-20] MEDS: Gabapentin 100 MG CAPSULE GTUBE SCH (07:59)
[2019-06-20 08:12] LABS: Hematocrit 28.9 % (37.5-50.1); Hemoglobin 8.9 g/dL (12.9-16.9); Immature Granulocytes % 0.5 % (0-4); Lymphocytes # 0.5 K/mcL (0.6-4.6); Lymphocytes % 3.4 %; Mean Corpuscular HGB Conc 30.8 g/dL (31.6-35.5); Mean Corpuscular Hemoglobin 29.5 pg (28.0-33.3); Mean Corpuscular Volume 95.7 fL (83.0-100.0); Mean Platelet Volume 9.1 fL (9.4-12.4); Monocytes # 0.4 K/mcL (0.0-1.3); Monocytes % 2.9 %; Neutrophils # 12.7 K/mcL (1.6-8.9); Platelet Count 436 K/mcL (140-400); Red Blood Count 3.02 M/mcL (4.19-5.50); Red Cell Distribution Width 16.4 % (11.5-14.5); Segmented Neutrophils % 93.2 %; White Blood Count 13.7 K/mcL (4.3-11.1)
[2019-06-20] MEDS: Insulin LISPRO 300 UNITS/3 ML VIAL SQ SCH (08:36)
[2019-06-20 08:43] LABS: Potassium 6.6 mEq/L (3.5-5.1)
[2019-06-20] MEDS ORDERED: *HR* Dextrose 50 % in Water (Syg) 50 ML SYRINGE IVP ONE ×2 (08:49→09:13)
[2019-06-20] MEDS ORDERED: Insulin LISPRO 300 UNITS/3 ML VIAL SQ STA (08:52)
[2019-06-20] MEDS ORDERED: Insulin Human Regular 10 UNIT in 0.9 % Sodium Chloride 10 ML IV ONE (08:57)
[2019-06-20] MEDS: Calcium Gluconate 1gm/50mL 1 GM/50 ML BAG IVPB SCH ×2 (09:40→10:59)
[2019-06-20 09:43] LABS: Bilirubin,Urine Negative (Negative); Blood,Urine Large (Negative); Clarity,Urine Turbid (Clear); Color,Urine Yellow (Yellow); Glucose,Urine (UA) Normal (Normal); Ketones,Urine Negative (Negative); Leukocyte Esterase,Urine Moderate (Negative); Nitrite,Urine Positive (Negative); Protein,Urine Trace mg/dL (Neg-Trace); Urobilinogen,Urine Normal (Normal)
[2019-06-20 09:45] LABS: Bacteria,Urine Many per hpf (None-Few); Hyaline Casts,Urine None Seen per lpf (None-Few); Squamous Epithelial Cell,Urine Moderate per lpf (None-Few); WBC,Urine 50-100 per hpf (0-3)
[2019-06-20 10:57] LABS: ABG Base Excess -2 mEq/L (-2 to 3); ABG HCO3 29 mEq/L (21-27); ABG Oxygen Saturation 83 % (95-98); ABG PCO2 88 mmHg (35-45); ABG PH 7.12 pH Units (7.32-7.45); ABG PO2 65 mmHg (85-104); ABG TCO2 31 mEq/L (20-26)
[2019-06-20] MEDS ORDERED: Furosemide 40 MG/4 ML VIAL IVP ONE ×2 (11:52→11:55)
[2019-06-20] MEDS ORDERED: Furosemide 240 MG in 0.9 % Sodium Chloride 96 ML IVC SCH ×2 (12:00→13:06)
[2019-06-20] MEDS ORDERED: Heparin 1,000 UNITS/500 mL 500 ML ONE (12:19)
[2019-06-20] MEDS ORDERED: 0.9 % Sodium Chloride 500 ML ONE ×2 (12:55→23:11)
[2019-06-20] MEDS ORDERED: Naloxone 0.4 MG/ML INJ IVP PRN (13:06)
[2019-06-20] MEDS ORDERED: Dextrose Gel 15 GM/37.5 ML TUBE PO PRN ×2 (13:06)
[2019-06-20] MEDS ORDERED: *HR* Dextrose 50 % in Water (Syg) 50 ML SYRINGE IVP PRN (13:06)
[2019-06-20] MEDS ORDERED: *HR* HYDROcodone/Acet 7.5/325 mg TABLET PO PRN (13:06)
[2019-06-20] MEDS ORDERED: D5% in Water 1,000 ML IVC PRN (13:06)
[2019-06-20 13:13] LABS: ABG Base Excess -5 mEq/L (-2 to 3); ABG HCO3 29 mEq/L (21-27); ABG Oxygen Saturation 88 % (95-98); ABG PCO2 125 mmHg (35-45); ABG PH 6.97 pH Units (7.32-7.45); ABG PO2 88 mmHg (85-104); ABG TCO2 33 mEq/L (20-26)
[2019-06-20] MEDS ORDERED: *HR* HYDROcodone/Acet 7.5/325 mg TABLET GTUBE PRN (13:30)
[2019-06-20] MEDS ORDERED: 0.9 % Sodium Chloride 250 ML IVC PRN (14:02)
[2019-06-20] MEDS ORDERED: *HR* Heparin 10,000 UNIT/10 ML VIAL IV PRN ×2 (14:02)
[2019-06-20] MEDS ORDERED: 0.9 % Sodium Chloride 1,000 ML PRIME SCH (14:15)
[2019-06-20] MEDS ORDERED: FentaNYL (PF) 1,000 MCG in 0.9 % Sodium Chloride 80 ML IVC SCH (14:15)
[2019-06-20] MEDS ORDERED: Artificial Tears SOLN 15 ML BOTTLE BOTH EYES PRN (14:55)
[2019-06-20] MEDS ORDERED: Vancomycin 1 EACH in 0.9 % Sodium Chloride 250 ML IVPB PRN (15:00)
[2019-06-20] MEDS ORDERED: Gabapentin 100 MG CAPSULE GTUBE SCH (15:00)
[2019-06-20 15:05] LABS: Hepatitis B Surface Antibody < 3.10 mIU/mL
[2019-06-20] MEDS ORDERED: 0.9 % Sodium Chloride 2,000 ML ONE (15:05)
[2019-06-20] MEDS: Ipratropium/Albuterol Neb 3 ML IH SCH ×2 (15:40→19:32)
[2019-06-20 15:45] LABS: Hepatitis B Core IgM Nonreactive (Nonreactive)
[2019-06-20] MEDS: Dexmedetomidine HCl 400 MCG/100 ML MLS IVC SCH ×2 (15:48→20:23)
[2019-06-20 15:52] LABS: ABG Base Excess -2 mEq/L (-2 to 3); ABG HCO3 27 mEq/L (21-27); ABG Oxygen Saturation 88 % (95-98); ABG PCO2 73 mmHg (35-45); ABG PH 7.18 pH Units (7.32-7.45); ABG PO2 70 mmHg (85-104); ABG TCO2 30 mEq/L (20-26); Blood Gas Modality VC; Blood Gas VT 550 cc
[2019-06-20] MEDS ORDERED: Piperacillin/Tazobactam 3.375 GM in 0.9 % Sodium Chloride Mini Bag 100 ML IVPB SCH (16:00)
[2019-06-20] MEDS: Norepinephrine 8 MG in 0.9 % Sodium Chloride 250 ML IVC SCH ×2 (16:01→20:50)
[2019-06-20 16:16] LABS: Basophils % 0.1 %; Hematocrit 26.1 % (37.5-50.1); Hemoglobin 8.4 g/dL (12.9-16.9); Immature Granulocytes % 0.7 % (0-4); Lymphocytes # 0.3 K/mcL (0.6-4.6); Mean Corpuscular HGB Conc 32.2 g/dL (31.6-35.5); Mean Corpuscular Hemoglobin 30.3 pg (28.0-33.3); Mean Corpuscular Volume 94.2 fL (83.0-100.0); Monocytes # 0.6 K/mcL (0.0-1.3); Monocytes % 4.8 %; Neutrophils # 11.7 K/mcL (1.6-8.9); Platelet Count 465 K/mcL (140-400); Red Blood Count 2.77 M/mcL (4.19-5.50); Red Cell Distribution Width 16.3 % (11.5-14.5); Segmented Neutrophils % 92.4 %; White Blood Count 12.7 K/mcL (4.3-11.1)
[2019-06-20 16:20] LABS: Hepatitis B Surface Antigen Nonreactive (Nonreactive)
[2019-06-20 16:25] LABS: Potassium 5.6 mEq/L (3.5-5.1)
[2019-06-20] MEDS ORDERED: Insulin LISPRO 300 UNITS/3 ML VIAL SQ SCH ×2 (16:30→21:00)
[2019-06-20] MEDS ORDERED: Vasopressin 40 UNIT in D5% in Water 100 ML IVC SCH (16:45)
[2019-06-20] MEDS ORDERED: Sodium Bicarbonate 50 MEQ/50 ML VIAL IVP ONE (16:53)
[2019-06-20] MEDS ORDERED: Hydrocortisone Sodium Succ 100 MG/2 ML VIAL IVP SCH (17:00)
[2019-06-20 17:04] LABS: ABG Base Excess -4 mEq/L (-2 to 3); ABG HCO3 25 mEq/L (21-27); ABG Oxygen Saturation 98 % (95-98); ABG PCO2 63 mmHg (35-45); ABG PH 7.21 pH Units (7.32-7.45); ABG PO2 135 mmHg (85-104); ABG TCO2 27 mEq/L (20-26); Blood Gas Modality VC; Blood Gas VT 580 cc
[2019-06-20] MEDS ORDERED: Sodium Bicarbonate 150 MEQ in D5% in Water 1,000 ML IVC SCH (17:15)
[2019-06-20] MEDS ORDERED: Calcium Gluconate 1gm/50mL 1 GM/50 ML BAG IVPB PRN ×2 (17:23)
[2019-06-20] MEDS ORDERED: *HR* Heparin 5,000 UNIT/ML VIAL CRRT PRN (17:23)
[2019-06-20] MEDS ORDERED: Calcium Chloride 4,000 MG in 0.9 % Sodium Chloride 1,000 ML CRRT SCH (17:30)
[2019-06-20] MEDS ORDERED: PrismaSATE BGK 4/2.5 5,000 ML CRRT SCH ×2 (17:30)
[2019-06-20] MEDS: Artificial Tears SOLN 15 ML BOTTLE BOTH EYES SCH ×2 (18:00→20:24)
[2019-06-20] MEDS ORDERED: Meropenem 1,000 MG in 0.9 % Sodium Chloride Mini Bag 100 ML IVPB SCH (18:00)
[2019-06-20] MEDS: 0.9 % Sodium Chloride 1,000 ML PRIME SCH ×2 (20:26→20:31)
[2019-06-20] MEDS ORDERED: traZODone 50 MG TABLET GTUBE SCH (21:00)
[2019-06-20] MEDS ORDERED: Mirtazapine 15 MG TABLET GTUBE SCH (21:00)
[2019-06-20] MEDS ORDERED: Chlorhexidine Rinse 15 ML MOUTHWASH MM SCH ×2 (21:00)
[2019-06-20 21:49] VITALS: BP 99/61
[2019-06-20] MEDS ORDERED: Budesonide/Formoterol 160/4.5 1 PUFF INH IH SCH (22:00)
[2019-06-20] MEDS ORDERED: *HR* Heparin 5,000 UNIT/ML VIAL ONE (22:20)
[2019-06-20] MEDS ORDERED: EPINEPHrine 1 MG in D5% in Water 250 ML IVC SCH (23:15)
[2019-06-20 23:22] LABS: Basophils % 0.2 %; Eosinophils # 0.7 K/mcL (0.0-0.6); Eosinophils % 5.3 %; Hematocrit 27.2 % (37.5-50.1); Hemoglobin 8.6 g/dL (12.9-16.9); Immature Granulocytes % 3.1 % (0-4); Lymphocytes # 0.9 K/mcL (0.6-4.6); Lymphocytes % 7.1 %; Mean Corpuscular HGB Conc 31.6 g/dL (31.6-35.5); Mean Corpuscular Hemoglobin 29.9 pg (28.0-33.3); Mean Corpuscular Volume 94.4 fL (83.0-100.0); Mean Platelet Volume 9.5 fL (9.4-12.4); Monocytes # 0.7 K/mcL (0.0-1.3); Monocytes % 5.9 %; Neutrophils # 9.9 K/mcL (1.6-8.9); Nucleated Red Blood Cells 0.3 /100 WBC (0); Platelet Count 441 K/mcL (140-400); Red Blood Count 2.88 M/mcL (4.19-5.50); Red Cell Distribution Width 16.3 % (11.5-14.5); Segmented Neutrophils % 78.4 %; White Blood Count 12.6 K/mcL (4.3-11.1)
[2019-06-20 23:32] LABS: Activated Partial Thrombo Time 43.5 Seconds (26.0-36.0); INR 2.4; Prothrombin Time 27.6 Seconds (9.4-12.1)
[2019-06-20] MEDS ORDERED: *HR* Midazolam HCl 5 MG/5 ML VIAL IVP ONE (23:38)
[2019-06-20] MEDS ORDERED: *HR* Etomidate 40 MG/20 ML VIAL IVP ONE (23:38)
[2019-06-20] MEDS ORDERED: *HR* EPINEPHrine 1 MG/10 ML SYRINGE IVP ONE (23:38)
[2019-06-20] MEDS ORDERED: Aminoglycoside Consult 1 EACH MC ONE (23:38)
[2019-06-20 23:42] LABS: ABG Base Excess -9 mEq/L (-2 to 3); ABG HCO3 21 mEq/L (21-27); ABG Oxygen Saturation 95 % (95-98); ABG PCO2 72 mmHg (35-45); ABG PH 7.08 pH Units (7.32-7.45); ABG PO2 109 mmHg (85-104); ABG TCO2 24 mEq/L (20-26)
[2019-06-20 23:44] LABS: Albumin 2.2 g/dL (3.5-5.7); Albumin/Globulin Ratio 0.7 (1.1-2.2); Bilirubin,Total 0.7 mg/dL (0.3-1.0); Calcium 8.2 mg/dL (8.6-10.3); Globulin 3.1 g/dL (2.4-3.5); Magnesium 1.7 mg/dL (1.6-2.6); Phosphorous 4.6 mg/dL (2.7-4.5); Potassium 3.9 mEq/L (3.5-5.1); Total Protein 5.3 g/dL (6.4-8.9)
[2019-06-21] MEDS ORDERED: Pantoprazole 40 MG VIAL IVP SCH (09:00)
== END 2019-06-20 23:39 | disposition expired | DRG 698 ==
LOC: CDU 00:38 → EMEROOARM 00:38 → SUATTDRO 04:48 → CDU 05:00 → 3ANU 15:36 → ICNU 06-20 12:28
PROVIDERS: ADMIT Internal Medicine; ATTEND Internal Medicine